=== PATIENT | female | born 1950 | race Caucasian/White ===

== ENCOUNTER 2023-04-01 10:28 | Inpatient (IN) | payer MEDICARE ==
[2023-04-01] MEDS ORDERED: Zofran 4 MG/2 ML VIAL IV ONE ×2 (10:35→12:11)
[2023-04-01] MEDS ORDERED: solu-MEDROL 125 MG, Sterile H2O 10 ml 2 ML IV ONE ×2 (10:35)
[2023-04-01] MEDS ORDERED: TYLENOL 325 MG PO ONE (10:35)
[2023-04-01] MEDS ORDERED: PROVENTIL 2.5 MG/3 ML NEB IH ONE ×2 (10:35→10:47)
[2023-04-01] MEDS ORDERED: Sodium Chloride 0.9% 1000 ML 1,000 ML IV STA (10:35)
[2023-04-01] MEDS ORDERED: PIPERACILLIN/TAZOBACTAM 4.5 GM in Sodium Chloride 100ML MINI-BAG PLUS 100 ML IV ONE (10:37)
--- NOTE | 2023-04-01 11:10 | ERPHSYRPT ---
- History of Present Illness Time Seen by Provider: 04/01/23 10:29 Source: patient Exam Limitations: no limitations Patient Subjective Stated Complaint: pt here for increase sob for 3 days now, with fever, Triage Nursing Assessment: pt arrived per ambulance, alert, resp easy labored, coughting up brown thick sputum. lungs diminished, has redness to left loer leg she states is chronic for her Physician History: Patient is here with shortness of breath. 2 to 3 days. Coughing up sputum. History of COPD. Patient initially at 87%. Placed on 2 L of oxygen. Patient feels that she has a fever. Concern for pneumonia. Documented fever here of 101.0. We will give antipyretics. Allergies/Adverse Reactions: azithromycin [From Zithromax] Allergy (Verified 04/01/23 11:58) cefaclor Allergy (Verified 04/01/23 11:58) ciprofloxacin [From Cipro] Allergy (Verified 04/01/23 11:58) gabapentin [From Neurontin] Allergy (Verified 04/01/23 11:58) glipizide Allergy (Verified 04/01/23 11:58) guaifenesin [From Robitussin] Allergy (Verified 04/01/23 11:58) hydrocodone Allergy (Verified 04/01/23 11:58) lisinopril Allergy (Verified 04/01/23 11:58) lovastatin Allergy (Verified 04/01/23 11:58) metoprolol Allergy (Verified 04/01/23 11:58) naproxen [From Aleve] Allergy (Verified 04/01/23 11:58) nifedipine [From Procardia] Allergy (Verified 04/01/23 11:58) paroxetine Allergy (Verified 04/01/23 11:58) Penicillins Allergy (Verified 04/01/23 11:58) procaine [From Novocain] Allergy (Verified 04/01/23 11:58) sulfacetamide Allergy (Verified 04/01/23 11:58) tetracycline Allergy (Verified 04/01/23 11:58) theophylline Allergy (Verified 04/01/23 11:58) ticagrelor [From Brilinta] Allergy (Verified 04/01/23 11:58) albuterol Adverse Reaction (Verified 04/01/23 11:58) Hx Tetanus, Diphtheria Vaccination/Date Given: No Hx Influenza Vaccination/Date Given: No Hx Pneumococcal Vaccination/Date Given: No Immunizations Up to Date: Yes Travel Risk - International Travel Have you traveled outside of the country in past 3 weeks: No - Coronavirus Screening Are you exhibiting any of the following symptoms?: Yes Symptoms: Fever Close contact with a COVID-19 positive Pt in past 14-21 Days: No - Vaccine Status Have you recieved a Covid-19 vaccination: Yes [employer]: Unknown - Vaccination Dates Date of 2cond Vaccination (if applicable): 2020 Dates if Unknown: 2021 - Review of Systems Constitutional: Fever, No Chills Eyes: No Symptoms Ears, Nose, & Throat: No Symptoms Respiratory: Cough, Dyspnea Cardiac: No Chest Pain, No Edema, No Syncope Abdominal/Gastrointestinal: No Abdominal Pain, No Nausea, No Vomiting, No D iarrhea Genitourinary Symptoms: No Dysuria Musculoskeletal: No Back Pain, No Neck Pain Skin: No Rash Neurological: No Dizziness, No Focal Weakness, No Sensory Changes Psychological: No Symptoms Endocrine: No Symptoms All Other Systems: Reviewed and Negative - Past Medical History Pertinent Past Medical History: Yes Cardiac History: Coronary Artery Disease, High Cholesterol, Hypertension, Myocardial Infarction (DC) Respiratory History: COPD Endocrine Medical History: Diabetes Type II GI Medical History: GERD History: Renal Disease - Past Surgical History Past Surgical History: Yes Cardiac: Cardiac Catheterization, Cardiac Stent Other Surgical History: cervic ca - Social History Smoking Status: Former smoker Exposure to second hand smoke: No Drug Use: none Patient Lives Alone: No - Nursing Vital Signs Nursing Vital Signs: Initial Vital Signs Pulse Rate 102 H 04/01/23 10:31 Respiratory Rate 18 04/01/23 10:31 Blood Pressure 184/83 04/01/23 10:31 O2 Sat by Pulse Oximetry 88 L 04/01/23 10:31 Pain Scale Pain Intensity 0 - Physical Exam General Appearance: no apparent distress, alert Eye Exam: PERRL/EOMI, eyes nml inspection Ears, Nose, Throat Exam: normal ENT inspection, pharynx normal, moist mucous membranes Neck Exam: normal inspection, non-tender, supple, full range of motion Respiratory Exam: diminished breath sounds, crackles/rales, wheezing, No respiratory distress Cardiovascular Exam: regular rate/rhythm, normal heart sounds, normal peripheral pulses Gastrointestinal/Abdomen Exam: soft, normal bowel sounds, No tenderness, No mass Back Exam: normal inspection, normal range of motion, No CVA tenderness, No vertebral tenderness Extremity Exam: normal inspection, normal range of motion, pelvis stable Neurologic Exam: alert, oriented x 3, cooperative, normal mood/affect, nml cerebellar function, nml station & gait, sensation nml, No motor deficits Skin Exam: normal color, warm, dry, No rash Lymphatic Exam: No adenopathy SpO2: 95 - Course Nursing assessment & vital signs reviewed: Yes EKG Interpreted by Me: Sinus Rhythm (Sinus rhythm, no obvious signs of ischemia) Ordered Tests: Active Orders 24 hr Category Date Time Status Admit as Inpatient ROUTINE Care 04/01/23 12:19 Active Code Status Order ROUTINE Care 04/01/23 12:19 Active Code Status Order ROUTINE Care 04/01/23 12:21 Active EKG-ER Only STAT Care 04/01/23 10:35 Active IV Care Q6H Care 04/01/23 12:19 Active IV Care Q6H Care 04/01/23 12:21 Active IV Insertion STAT Care 04/01/23 10:35 Active Reid Hose, Apply ROUTINE Care 04/01/23 12:19 Active Weight,Daily 0600 Care 04/01/23 12:19 Active CHEST 1 VIEW (PORTABLE) DAILY Exams 04/02/23 07:00 Ordered CHEST 1 VIEW (PORTABLE) DAILY Exams 04/03/23 07:00 Ordered CHEST 1 VIEW (PORTABLE) DAILY Exams 04/04/23 07:00 Ordered CHEST 1 VIEW (PORTABLE) DAILY Exams 04/05/23 07:00 Ordered CHEST 1 VIEW (PORTABLE) Stat Exams 04/01/23 10:36 Completed BLOOD CULTURE Stat Lab 04/01/23 11:17 Received CBC AM.LAB Lab 04/02/23 04:00 Ordered CBC W DIFF Stat Lab 04/01/23 10:35 Completed CMP AM.LAB Lab 04/02/23 04:00 Ordered CULTURE,SPUTUM Stat Lab 04/01/23 11:25 Received CULTURE,URINE Stat Lab 04/01/23 11:25 Received Lactic Acid Stat Lab 04/01/23 11:00 Completed PROCALCITONIN Stat Lab 04/01/23 11:17 Received TROPONIN Q4H Lab 04/01/23 14:45 Ordered TROPONIN Q4H Lab 04/01/23 18:45 Ordered TROPONIN Q4H Lab 04/01/23 22:45 Ordered UA W/RFX UR CULTURE Stat Lab 04/01/23 11:25 Completed Respiratory Therapy Assessment DAILY RT 04/01/23 11:10 Active Transfer Order Routine Transfer 04/01/23 Ordered Medication Summary Generic Name Dose Route Start Last Admin Trade Name Palomo PRN Reason Stop Dose Admin Acetaminophen 650 mg 04/01/23 12:21 Acetaminophen 325 Mg Tablet PO 05/01/23 12:20 Q4H PRN PRN PAIN AND/OR FEVER Levofloxacin/Dextrose 750 mg in 150 mls @ 100 mls/hr 04/01/23 12:27 Levofloxacin 750mg/150ml D5w IV 04/01/23 13:56 STAT STA Ondansetron HCl 4 mg 04/01/23 12:21 Ondansetron Hcl 4 Mg/2 Ml Vial IV 05/01/23 12:20 Q6H PRN PRN NAUSEA/VOMITING Discontinued Medications Generic Name Dose Route Start Last Admin Trade Name Palomo PRN Reason Stop Dose Admin Acetaminophen 975 mg 04/01/23 10:35 04/01/23 11:58 Acetaminophen 325 Mg Tablet PO 04/01/23 10:36 975 mg STAT ONE Administration Acetaminophen Confirm 04/01/23 11:55 Acetaminophen 325 Mg Tablet Administered 04/01/23 11:56 Dose 975 mg .ROUTE .STK-MED ONE Albuterol Sulfate 2.5 mg 04/01/23 10:35 04/01/23 10:50 Albuterol Sulfate 2.5 Mg/3 Ml Neb IH 04/01/23 10:36 2.5 mg STAT ONE Administration Albuterol Sulfate Confirm 04/01/23 10:47 Albuterol Sulfate 2.5 Mg/3 Ml Neb Administered 04/01/23 10:48 Dose 2.5 mg IH .STK-MED ONE Methylprednisolone Sodium 0 mg 04/01/23 10:35 04/01/23 11:58 Succinate 125 mg/ Sterile IV 04/01/23 10:36 125 mg Water 2 ml STAT ONE Administration Sodium Chloride 1,000 mls @ 999 mls/hr 04/01/23 10:35 04/01/23 12:08 Sodium Chloride 0.9% 1000 Ml IV 04/01/23 11:35 999 mls/hr .Q1H1M STA Administration Piperacillin Sod/Tazobactam 100 mls @ 200 mls/hr 04/01/23 10:37 Sod 4.5 gm/ Sodium Chloride IV 04/01/23 11:06 ONCE ONE Ceftriaxone Sodium/Dextrose 1 g in 50 mls @ 100 mls/hr 04/01/23 11:22 04/01/23 12:12 Rocephin 1 Gm-D5w 50 Ml Bag IV 04/01/23 11:51 100 mls/hr STAT ONE 100 mls/hr Administration Azithromycin 500 mg in 250 mls @ 250 mls/hr 04/01/23 11:22 Zithromax 500 Mg/ 250 Ml Nacl Premix IV 04/01/23 12:21 STAT ONE Sodium Chloride Confirm 04/01/23 11:56 Sodium Chloride 0.9% 1000 Ml Administered 04/01/23 11:57 Dose 1,000 mls @ ud .ROUTE .STK-MED ONE Azithromycin Confirm 04/01/23 12:04 Zithromax 500 Mg/ 250 Ml Nacl Premix Administered 04/01/23 12:05 Dose 500 mg in 250 mls @ ud IV .STK-MED ONE Ceftriaxone Sodium/Dextrose Confirm 04/01/23 12:04 Rocephin 1 Gm-D5w 50 Ml Bag Administered 04/01/23 12:05 Dose 1 g in 50 mls @ ud IV .STK-MED ONE Methylprednisolone Sodium Succinate Confirm 04/01/23 11:55 Methylprednis Sod Succ 125 Mg/2 Ml Vial Administered 04/01/23 11:56 Dose 125 mg .ROUTE .STK-MED ONE Ondansetron HCl 4 mg 04/01/23 10:35 04/01/23 11:58 Ondansetron Hcl 4 Mg/2 Ml Vial IV 04/01/23 10:36 4 mg STAT ONE Administration Ondansetron HCl Confirm 04/01/23 11:55 Ondansetron Hcl 4 Mg/2 Ml Vial Administered 04/01/23 11:56 Dose 4 mg .ROUTE .STK-MED ONE Ondansetron HCl 8 mg 04/01/23 12:11 Ondansetron Hcl 4 Mg/2 Ml Vial IV 04/01/23 12:12 STAT ONE Sterile Water Confirm 04/01/23 11:55 Water For Injection,Sterile 10 Ml Vial Administered 04/01/23 11:56 Dose 10 ml IJ .STK-MED ONE Lab/Rad Data: Laboratory Result Diagrams 04/01/23 10:35 04/01/23 11:17 Laboratory Results 04/01/23 04/01/23 04/01/23 Range/Units 11:25 11:17 11:17 WBC (4.0-10.5) x10^3/uL RBC (4.1-5.4) x10^6/uL Hgb (12.0-16.0) g/dL Hct (35-47) % MCV (78-100) fL MCH (26-32) pg MCHC (32-36) g/dL RDW (11.5-14.0) % Plt Count (150-450) x10^3/uL MPV (7.5-11.0) fL Gran % (36.0-66.0) % Immature Gran % (Auto) (0.00-0.4) % Nucleat RBC Rel Count (0.00-0.1) % Eos # (Auto) (0-0.5) x10^3/uL Immature Gran # (Auto) (0.00-0.03) x10^3u/L Absolute Lymphs (auto) (1.0-4.6) x10^3/uL Absolute Monos (auto) (0.0-1.3) x10^3/uL Absolute Nucleated RBC (0.00-0.01) x10^3u/L Lymphocytes % (24.0-44.0) % Monocytes % (0.0-12.0) % Eosinophils % (0.00-5.0) % Basophils % (0.0-0.4) % Absolute Granulocytes (1.4-6.9) x10^3/uL Basophils # (0-0.4) x10^3/uL Sodium Direct 135 L (138-146) mmol/L Potassium 4.3 (3.5-4.9) mmol/L Chloride 95 L (98-109) mmol/L Carbon Dioxide 27 (24-29) mmol/L Venous BUN 47 H (8-26) mg/dL Creatinine 1.9 H (0.6-1.3) mg/dL Glucose 231 H (70-105) mg/dL Lactic Acid (0.4-2.0) Ionized Calcium 1.10 L (1.12-1.32) mmol/L Troponin 0.04 H (0.00-0.03) ng/mL Urine Color Yellow (Yellow) Urine Appearance Clear (Clear) Urine pH 5.0 (4.6-8.0) Ur Specific Waldo 1.015 (1.005-1.030) Urine Protein Negative (Negative) Urine Glucose (UA) >=1000 A (Negative) mg/dL Urine Ketones Negative (Negative) Urine Blood Negative (Negative) Urine Nitrite Negative (Negative) Urine Bilirubin Negative (Negative) Urine Urobilinogen 0.2 (0.2) mg/dL Ur Leukocyte Esterase Small A (Negative) U Hyaline Cast (Auto) 3-5 A (0-2) /LPF Urine Microscopic RBC 0-2 (0-5) /HPF Urine Microscopic WBC 21-50 A (0-5) /HPF Ur Epithelial Cells None Seen (None Seen) /HPF Urine Bacteria Many A (None Seen) /HPF Urine Culture Reflexed YES (NO) Influenza Type A Ag NEGATIVE (NEGATIVE) Influenza Type B Ag NEGATIVE (NEGATIVE) RSV (PCR) NEGATIVE (NEGATIVE) SARS-CoV-2 (PCR) NEGATIVE (NEGATIVE) Group A Strep Antibody (NEGATIVE) 04/01/23 04/01/23 04/01/23 Range/Units 11:15 11:00 10:35 WBC 19.7 H (4.0-10.5) x10^3/uL RBC 4.22 (4.1-5.4) x10^6/uL Hgb 11.6 L (12.0-16.0) g/dL Hct 37.0 (35-47) % MCV 87.7 (78-100) fL MCH 27.5 (26-32) pg MCHC 31.4 L (32-36) g/dL RDW 15.8 H (11.5-14.0) % Plt Count 423 (150-450) x10^3/uL MPV 10.9 (7.5-11.0) fL Gran % 84.2 H (36.0-66.0) % Immature Gran % (Auto) 0.5 H (0.00-0.4) % Nucleat RBC Rel Count 0.0 (0.00-0.1) % Eos # (Auto) 0.08 (0-0.5) x10^3/uL Immature Gran # (Auto) 0.10 H (0.00-0.03) x10^3u/L Absolute Lymphs (auto) 1.35 (1.0-4.6) x10^3/uL Absolute Monos (auto) 1.49 H (0.0-1.3) x10^3/uL Absolute Nucleated RBC 0.00 (0.00-0.01) x10^3u/L Lymphocytes % 6.8 L (24.0-44.0) % Monocytes % 7.6 (0.0-12.0) % Eosinophils % 0.4 (0.00-5.0) % Basophils % 0.5 (0.0-0.4) % Absolute Granulocytes 16.61 H (1.4-6.9) x10^3/uL Basophils # 0.10 (0-0.4) x10^3/uL Sodium Direct (138-146) mmol/L Potassium (3.5-4.9) mmol/L Chloride (98-109) mmol/L Carbon Dioxide (24-29) mmol/L Venous BUN (8-26) mg/dL Creatinine (0.6-1.3) mg/dL Glucose (70-105) mg/dL Lactic Acid 1.6 (0.4-2.0) Ionized Calcium (1.12-1.32) mmol/L Troponin (0.00-0.03) ng/mL Urine Color (Yellow) Urine Appearance (Clear) Urine pH (4.6-8.0) Ur Specific Waldo (1.005-1.030) Urine Protein (Negative) Urine Glucose (UA) (Negative) mg/dL Urine Ketones (Negative) Urine Blood (Negative) Urine Nitrite (Negative) Urine Bilirubin (Negative) Urine Urobilinogen (0.2) mg/dL Ur Leukocyte Esterase (Negative) U Hyaline Cast (Auto) (0-2) /LPF Urine Microscopic RBC (0-5) /HPF Urine Microscopic WBC (0-5) /HPF Ur Epithelial Cells (None Seen) /HPF Urine Bacteria (None Seen) /HPF Urine Culture Reflexed (NO) Influenza Type A Ag (NEGATIVE) Influenza Type B Ag (NEGATIVE) RSV (PCR) (NEGATIVE) SARS-CoV-2 (PCR) (NEGATIVE) Group A Strep Antibody NOT DETECTED (NEGATIVE) - Progress Progress: improved Progress Note: 04/01/23 11:09 differential diagnosis includes: PNA, STEMI, NSTEMI, other infection, musculoskeletal pain, pneumothorax - We'll obtain basic labs, fluids, EKG, troponin, chest x-ray - First troponin negative - EKG shows no ST changes - my read. See full read below. - O2 saturations consistently greater than 95%, on 2 L of oxygen 04/01/23 12:31 Chest x-ray shows left lower lobe pneumonia. Patient looks somewhat improved on steroids, albuterol treatments. Patient has an extremely long allergy list. I did discuss antibiotic choices with her. When I discussed using Levaquin versus Cipro versus Rocephin. Her "allergic reactions" appear to be more intolerances of medication versus true allergic reactions. She does not get hives, throat s welling, redness, shortness of breath with any of these medications. Rather she describes intolerance, vomiting, upset stomach. After discussion with inpatient team, Dr. Kim. We made decision to try Levaquin today for the patient. This will cover her pneumonia. Plan to admit. Discussed with : Julio Counseled pt/family regarding: lab results, diagnosis, rad results Medical Desision Making - Independent Historian Additional History obtained from: Child - Discussion of managment Care discussed with:: hospitalist Reviewed:: Test results, Need for additional workup Agreed on:: Treatment plan, decision to admit - Diagnostic Testing Diagnostic test were ordered, analyzed, and reviewed by me: Yes Radiological Interpretation: Interpreted by me - Departure Departure Disposition: In-patient Admission Clinical Impression: Pneumonia, Acute respiratory failure with hypoxia Condition: Stable Critical Care Time: No
[2023-04-01] MEDS ORDERED: ROCEPHIN 1 Gm-D5w 50 ml Bag** 1 G/50 ML IVPB IV ONE ×2 (11:22→12:04)
[2023-04-01] MEDS ORDERED: Zithromax 500 MG/ 250 ML NaCl Premix 500 MG/250 ML IVPB IV ONE (11:22)
[2023-04-01 11:25] LABS: Absolute Neutrophil Ct (ANC) 16.61 x10^3/uL (1.4-6.9); BASOPHIL % 0.5 % (0.0-0.4); Eosinophil % 0.4 % (0.00-5.0); Eosinophil (Absolute #) 0.08 x10^3/uL (0-0.5); Hemoglobin 11.6 g/dL (12.0-16.0); IMMATURE GRAN % 0.5 % (0.00-0.4); Lymphocyte (Absolute #) 1.35 x10^3/uL (1.0-4.6); Lymphocytes % 6.8 % (24.0-44.0); Mean Cell Volume 87.7 fL (78-100); Mean Corpuscular Hemoglobin 27.5 pg (26-32); Mean Corpuscular Hgb Concent. 31.4 g/dL (32-36); Mean Platelet Volume 10.9 fL (7.5-11.0); Monocyte (Absolute #) 1.49 x10^3/uL (0.0-1.3); Monocytes % 7.6 % (0.0-12.0); Neutrophil % 84.2 % (36.0-66.0); Platelet Count 423 x10^3/uL (150-450); Red Blood Count 4.22 x10^6/uL (4.1-5.4); Red Cell Distribution Width 15.8 % (11.5-14.0); White Blood Count 19.7 x10^3/uL (4.0-10.5)
[2023-04-01 11:48] LABS: ISTAT cTNI 0.04 ng/mL (0.00-0.03)
[2023-04-01 11:50] LABS: ISTAT K 4.3 mmol/L (3.5-4.9); ISTAT iCA 1.1 mmol/L (1.12-1.32)
[2023-04-01 11:51] LABS: ISTAT CREA 1.9 mg/dL (0.6-1.3)
[2023-04-01] MEDS ORDERED: Sterile H2O 10 ml IJ ONE (11:55)
[2023-04-01] MEDS ORDERED: solu-MEDROL ONE (11:55)
[2023-04-01] MEDS ORDERED: TYLENOL 325 MG ONE (11:55)
[2023-04-01] MEDS ORDERED: Zofran 4 MG/2 ML VIAL ONE (11:55)
[2023-04-01] MEDS ORDERED: Sodium Chloride 0.9% 1000 ML 1,000 ML ONE (11:56)
[2023-04-01 12:02] LABS: INFLUENZA A NEGATIVE (NEGATIVE); INFLUENZA B NEGATIVE (NEGATIVE); RESPIRATORY SYNCTIAL VIRUS NEGATIVE (NEGATIVE); SARS-CoV-2 Xpert Express NEGATIVE (NEGATIVE)
[2023-04-01] MEDS ORDERED: Zithromax 500 MG/ 250 ML NaCl Premix 0 MG/0 ML IVPB IV ONE (12:04)
--- NOTE | 2023-04-01 12:09 | XRAY ---
CLINICAL HISTORY:PNA COMPARISON:None. TECHNIQUES:X-ray of the chest showing 1 view: AP view. FINDINGS: Areas of non-homogenous opacifications are seen in the left mid and bilateral lower zones. Both brisa appear prominent. Normal configuration of the mediastinum. The cardiac size is normal. The costophrenic and cardiophrenic angles are clear. Degenerative changes are seen in the spine. IMPRESSION: Areas of non-homogenous opacifications in the left mid and bilateral lower zones, likely represents pulmonary infection. Suggested clinical and lab correlation and follow-up x-ray. Electronically Signed by: Pamela Diaz MD. (04/01/2023 10:59:26 PHYSICIAN [facility] [employer])
[2023-04-01] MEDS ORDERED: Zofran 4 MG/2 ML VIAL IV PRN (12:21)
[2023-04-01] MEDS ORDERED: TYLENOL 325 MG PO PRN (12:21)
[2023-04-01 12:22] LABS: Appearance Clear (Clear); Bacteria Many /HPF (None Seen); Bilirubin Negative (Negative); Blood Negative (Negative); Epithelial Cells None Seen /HPF (None Seen); Glucose, Urine >=1000 mg/dL (Negative); Ketones Negative (Negative); Leukocyte Esterase Small (Negative); Nitrite Negative (Negative); Protein,Urine Dip Negative (Negative); RBC 0-2 /HPF (0-5); Specific Gravity 1.015 (1.005-1.030); Urobilinogen 0.2 mg/dL (0.2); WBC 21-50 /HPF (0-5)
[2023-04-01 12:23] LABS: ADD URINE CULTURE? YES (NO)
[2023-04-01] MEDS ORDERED: LEVOFLOXACIN 750MG/150ML D5W 750 MG/150 ML BAG IV STA (12:27)
--- NOTE | 2023-04-01 16:58 | PCM.HP ---
History of Present Illness - Chief Complaint Chief Complaint: PNEUMONIA, COPD History of Present Illness: is a 73 year old female who presented to the hospital with cough and shortness of breath, she has had fever and purulent sputum production for several days prior to arrival. She is new to the area, seeing [employer] at [facility]. - Review of Systems Constitutional: Fever, Chills Respiratory: Cough Cardiac: No Chest Pain, No Edema, No Syncope Abdominal/Gastrointestinal: No Abdominal Pain, No Nausea, No Vomiting, No Diarrhea Skin: No Rash Medications & Allergies Home Medications: Home Medication List Albuterol Sulfate [Proair Respiclick] 1 inh INTRANASAL DAILY 04/01/23 [History Confirmed 04/01/23] Allopurinol 300 mg [Zyloprim 300 mg] 300 mg PO HS 04/01/23 [History Confirmed 04/01/23] Amiodarone HCl 200 mg [Cordarone 200 MG] 200 mg PO DAILY 04/01/23 [History Confirmed 04/01/23] Amlodipine Besylate [Norvasc] 10 mg PO DAILY 04/01/23 [History Confirmed 04/01/23] Apixaban [Eliquis] 5 mg PO BID 04/01/23 [History Confirmed 04/01/23] Aspirin EC 81 mg [Ecotrin 81 mg] 81 mg PO HS 04/01/23 [History Confirmed 04/01/23] Cyclosporine [Restasis Multidose] 1 drop OP BID 04/01/23 [History Confirmed 04/01/23] Empagliflozin [Jardiance] 10 mg PO DAILY 04/01/23 [History Confirmed 04/01/23] Fenofibric Acid 35 mg PO HS 04/01/23 [History Confirmed 04/01/23] Fluticasone Propionate [Flonase Allergy Relief] 50 mcg INTRANASAL BID 04/01/23 [History Confirmed 04/01/23] Insulin Detemir [Levemir Flexpen] 45 units SQ BID 04/01/23 [History Confirmed 04/01/23] Insulin Lispro [Humalog] 20 unit TID 04/01/23 [History Confirmed 04/01/23] Isosorbide Dinitrate 30 mg PO BREAKFAST 04/01/23 [History Confirmed 04/01/23] Montelukast Sodium 10 mg [Singulair 10 MG] 10 mg PO DAILY 04/01/23 [History Confirmed 04/01/23] Nitroglycerin [Nitromist] 1 spray INTRANASAL DAILY PRN PRN 04/01/23 [History Confirmed 04/01/23] Potassium Chloride 10 meq PO DAILY 04/01/23 [History Confirmed 04/01/23] Pregabalin 25 mg [Lyrica 25 MG] 25 mg PO BID 04/01/23 [History Confirmed 04/01/23] Semaglutide [Ozempic] 0.5 mg SQ WEEKLY 04/01/23 [History Confirmed 04/01/23] Spironolactone 25 mg [Aldactone 25 MG] 25 mg PO DAILY 04/01/23 [History Confirmed 04/01/23] Tizanidine HCl 4 mg [Zanaflex 4 MG] 4 mg PO HS 04/01/23 [History Confirmed 04/01/23] Torsemide 20 mg [Demadex 20 mg] 60 mg PO DAILY 04/01/23 [History Confirmed 04/01/23] Tramadol HCl 50 mg [Ultram 50 mg] 50 mg PO Q4-6HPRN PRN 04/01/23 [History Confirmed 04/01/23] Umeclidinium Brm/Vilanterol Tr [Anoro Ellipta 62.5-25 Mcg INH] 1 puff IH DAILY 04/01/23 [History Confirmed 04/01/23] Allergies/Adverse Reactions: Allergies Allergy/AdvReac Type Severity Reaction Status Date / Time azithromycin [From Zithromax] Allergy Verified 04/01/23 11:58 cefaclor Allergy Verified 04/01/23 11:58 ciprofloxacin [From Cipro] Allergy Verified 04/01/23 11:58 gabapentin [From Neurontin] Allergy Verified 04/01/23 11:58 glipizide Allergy Verified 04/01/23 11:58 guaifenesin [From Robitussin] Allergy Verified 04/01/23 11:58 hydrocodone Allergy Verified 04/01/23 11:58 lisinopril Allergy Verified 04/01/23 11:58 lovastatin Allergy Verified 04/01/23 11:58 metoprolol Allergy Verified 04/01/23 11:58 naproxen [From Aleve] Allergy Verified 04/01/23 11:58 nifedipine [From Procardia] Allergy Verified 04/01/23 11:58 paroxetine Allergy Verified 04/01/23 11:58 Penicillins Allergy Verified 04/01/23 11:58 procaine [From Novocain] Allergy Verified 04/01/23 11:58 sulfacetamide Allergy Verified 04/01/23 11:58 tetracycline Allergy Verified 04/01/23 11:58 theophylline Allergy Verified 04/01/23 11:58 ticagrelor [From Brilinta] Allergy Verified 04/01/23 11:58 albuterol AdvReac Verified 04/01/23 11:58 - Past Medical History Past Medical History: Yes ENT History: Cataracts Cardiac History: Coronary Artery Disease, High Cholesterol, Hypertension, Myocardial Infarction (DE) Respiratory History: CHF, COPD Endocrine Medical History: Diabetes Type II Musculoskelatal History: Arthritis GI Medical History: GERD History: Renal Disease Pyscho-Social History: No Pertinent History Reproductive Disorders: No Pertinent History, Cervical Cancer Comment: neuropathy - Female History Are you now?: No - Past Surgical History Past Surgical History: Yes Neuro Surgical History: No Pertinent History Cardiac History: Cardiac Catheterization, Cardiac Stent Respiratory Surgery: No Pertinent History GI Surgical History: Cholecystectomy Genitourinary Surgical Hx: No Pertinent History Musculskeletal Surgical Hx: No Pertinent History Female Surgical History: Other Other Surgical History: cervic ca , loop sx on cervix - Social History Smoking Status: Former smoker Exposure to second hand smoke: No Alcohol: None Drug Use: none - Physical Exam Vital Signs: Vital Signs - 24 hr Temp Pulse Resp BP BP Pulse Ox 04/01/23 16:00 99.8 F 85 18 184/83 95 04/01/23 15:00 99.8 F 85 18 184/83 95 04/01/23 14:03 99.8 F 85 18 184/83 95 04/01/23 14:00 98.6 F 78 20 145/65 94 L 04/01/23 13:12 99.8 F 04/01/23 13:00 98.6 F 78 20 109/49 94 L 04/01/23 12:33 95 04/01/23 12:00 85 20 134/58 94 L 04/01/23 11:08 95 H 27 H 142/63 92 L 04/01/23 10:50 88 24 94 L 04/01/23 10:37 87 H 95 04/01/23 10:32 101.0 F 88 34 H 184/83 88 L 04/01/23 10:31 102 H 18 184/83 88 L General Appearance: no apparent distress Neurologic Exam: alert, oriented x 3 Respiratory Exam: rhonchi Cardiovascular Exam: regular rate/rhythm, normal heart sounds, normal peripheral pulses Gastrointestinal/Abdomen Exam: soft, normal bowel sounds, No tenderness, No mass Extremity Exam: normal inspection, normal range of motion, pelvis stable Skin Exam: normal color, warm, dry, No rash Results - Labs Lab/Micro Results: Lab Results-Last 24 Hours 04/01/23 04/01/23 04/01/23 Range/Units 10:35 11:00 11:15 WBC 19.7 H (4.0-10.5) x10^3/uL RBC 4.22 (4.1-5.4) x10^6/uL Hgb 11.6 L (12.0-16.0) g/dL Hct 37.0 (35-47) % MCV 87.7 (78-100) fL MCH 27.5 (26-32) pg MCHC 31.4 L (32-36) g/dL RDW 15.8 H (11.5-14.0) % Plt Count 423 (150-450) x10^3/uL MPV 10.9 (7.5-11.0) fL Gran % 84.2 H (36.0-66.0) % Immature Gran % (Auto) 0.5 H (0.00-0.4) % Nucleat RBC Rel Count 0.0 (0.00-0.1) % Eos # (Auto) 0.08 (0-0.5) x10^3/uL Immature Gran # (Auto) 0.10 H (0.00-0.03) x10^3u/L Absolute Lymphs (auto) 1.35 (1.0-4.6) x10^3/uL Absolute Monos (auto) 1.49 H (0.0-1.3) x10^3/uL Absolute Nucleated RBC 0.00 (0.00-0.01) x10^3u/L Lymphocytes % 6.8 L (24.0-44.0) % Monocytes % 7.6 (0.0-12.0) % Eosinophils % 0.4 (0.00-5.0) % Basophils % 0.5 (0.0-0.4) % Absolute Granulocytes 16.61 H (1.4-6.9) x10^3/uL Basophils # 0.10 (0-0.4) x10^3/uL Sodium Direct (138-146) mmol/L Potassium (3.5-4.9) mmol/L Chloride (98-109) mmol/L Carbon Dioxide (24-29) mmol/L Venous BUN (8-26) mg/dL Creatinine (0.6-1.3) mg/dL Glucose (70-105) mg/dL Lactic Acid 1.6 (0.4-2.0) Ionized Calcium (1.12-1.32) mmol/L Troponin (0.00-0.03) ng/mL Troponin I (0.000-0.034) ng/mL Procalcitonin (0.030-0.080) ng/mL Urine Color (Yellow) Urine Appearance (Clear) Urine pH (4.6-8.0) Ur Specific Battiest (1.005-1.030) Urine Protein (Negative) Urine Glucose (UA) (Negative) mg/dL Urine Ketones (Negative) Urine Blood (Negative) Urine Nitrite (Negative) Urine Bilirubin (Negative) Urine Urobilinogen (0.2) mg/dL Ur Leukocyte Esterase (Negative) U Hyaline Cast (Auto) (0-2) /LPF Urine Microscopic RBC (0-5) /HPF Urine Microscopic WBC (0-5) /HPF Ur Epithelial Cells (None Seen) /HPF Urine Bacteria (None Seen) /HPF Urine Culture Reflexed (NO) Influenza Type A Ag (NEGATIVE) Influenza Type B Ag (NEGATIVE) RSV (PCR) (NEGATIVE) SARS-CoV-2 (PCR) (NEGATIVE) Group A Strep Antibody NOT DETECTED (NEGATIVE) 04/01/23 04/01/23 04/01/23 Range/Units 11:17 11:17 11:17 WBC (4.0-10.5) x10^3/uL RBC (4.1-5.4) x10^6/uL Hgb (12.0-16.0) g/dL Hct (35-47) % MCV (78-100) fL MCH (26-32) pg MCHC (32-36) g/dL RDW (11.5-14.0) % Plt Count (150-450) x10^3/uL MPV (7.5-11.0) fL Gran % (36.0-66.0) % Immature Gran % (Auto) (0.00-0.4) % Nucleat RBC Rel Count (0.00-0.1) % Eos # (Auto) (0-0.5) x10^3/uL Immature Gran # (Auto) (0.00-0.03) x10^3u/L Absolute Lymphs (auto) (1.0-4.6) x10^3/uL Absolute Monos (auto) (0.0-1.3) x10^3/uL Absolute Nucleated RBC (0.00-0.01) x10^3u/L Lymphocytes % (24.0-44.0) % Monocytes % (0.0-12.0) % Eosinophils % (0.00-5.0) % Basophils % (0.0-0.4) % Absolute Granulocytes (1.4-6.9) x10^3/uL Basophils # (0-0.4) x10^3/uL Sodium Direct 135 L (138-146) mmol/L Potassium 4.3 (3.5-4.9) mmol/L Chloride 95 L (98-109) mmol/L Carbon Dioxide 27 (24-29) mmol/L Venous BUN 47 H (8-26) mg/dL Creatinine 1.9 H (0.6-1.3) mg/dL Glucose 231 H (70-105) mg/dL Lactic Acid (0.4-2.0) Ionized Calcium 1.10 L (1.12-1.32) mmol/L Troponin 0.04 H (0.00-0.03) ng/mL Troponin I (0.000-0.034) ng/mL Procalcitonin 0.500 H (0.030-0.080) ng/mL Urine Color (Yellow) Urine Appearance (Clear) Urine pH (4.6-8.0) Ur Specific Battiest (1.005-1.030) Urine Protein (Negative) Urine Glucose (UA) (Negative) mg/dL Urine Ketones (Negative) Urine Blood (Negative) Urine Nitrite (Negative) Urine Bilirubin (Negative) Urine Urobilinogen (0.2) mg/dL Ur Leukocyte Esterase (Negative) U Hyaline Cast (Auto) (0-2) /LPF Urine Microscopic RBC (0-5) /HPF Urine Microscopic WBC (0-5) /HPF Ur Epithelial Cells (None Seen) /HPF Urine Bacteria (None Seen) /HPF Urine Culture Reflexed (NO) Influenza Type A Ag NEGATIVE (NEGATIVE) Influenza Type B Ag NEGATIVE (NEGATIVE) RSV (PCR) NEGATIVE (NEGATIVE) SARS-CoV-2 (PCR) NEGATIVE (NEGATIVE) Group A Strep Antibody (NEGATIVE) 04/01/23 04/01/23 Range/Units 11:25 15:05 WBC (4.0-10.5) x10^3/uL RBC (4.1-5.4) x10^6/uL Hgb (12.0-16.0) g/dL Hct (35-47) % MCV (78-100) fL MCH (26-32) pg MCHC (32-36) g/dL RDW (11.5-14.0) % Plt Count (150-450) x10^3/uL MPV (7.5-11.0) fL Gran % (36.0-66.0) % Immature Gran % (Auto) (0.00-0.4) % Nucleat RBC Rel Count (0.00-0.1) % Eos # (Auto) (0-0.5) x10^3/uL Immature Gran # (Auto) (0.00-0.03) x10^3u/L Absolute Lymphs (auto) (1.0-4.6) x10^3/uL Absolute Monos (auto) (0.0-1.3) x10^3/uL Absolute Nucleated RBC (0.00-0.01) x10^3u/L Lymphocytes % (24.0-44.0) % Monocytes % (0.0-12.0) % Eosinophils % (0.00-5.0) % Basophils % (0.0-0.4) % Absolute Granulocytes (1.4-6.9) x10^3/uL Basophils # (0-0.4) x10^3/uL Sodium Direct (138-146) mmol/L Potassium (3.5-4.9) mmol/L Chloride (98-109) mmol/L Carbon Dioxide (24-29) mmol/L Venous BUN (8-26) mg/dL Creatinine (0.6-1.3) mg/dL Glucose (70-105) mg/dL Lactic Acid (0.4-2.0) Ionized Calcium (1.12-1.32) mmol/L Troponin (0.00-0.03) ng/mL Troponin I 0.034 (0.000-0.034) ng/mL Procalcitonin (0.030-0.080) ng/mL Urine Color Yellow (Yellow) Urine Appearance Clear (Clear) Urine pH 5.0 (4.6-8.0) Ur Specific Battiest 1.015 (1.005-1.030) Urine Protein Negative (Negative) Urine Glucose (UA) >=1000 A (Negative) mg/dL Urine Ketones Negative (Negative) Urine Blood Negative (Negative) Urine Nitrite Negative (Negative) Urine Bilirubin Negative (Negative) Urine Urobilinogen 0.2 (0.2) mg/dL Ur Leukocyte Esterase Small A (Negative) U Hyaline Cast (Auto) 3-5 A (0-2) /LPF Urine Microscopic RBC 0-2 (0-5) /HPF Urine Microscopic WBC 21-50 A (0-5) /HPF Ur Epithelial Cells None Seen (None Seen) /HPF Urine Bacteria Many A (None Seen) /HPF Urine Culture Reflexed YES (NO) Influenza Type A Ag (NEGATIVE) Influenza Type B Ag (NEGATIVE) RSV (PCR) (NEGATIVE) SARS-CoV-2 (PCR) (NEGATIVE) Group A Strep Antibody (NEGATIVE) - Radiology Impressions Radiology Exams & Impressions: Radiology Procedures Category Date Time Status CHEST 1 VIEW (PORTABLE) DAILY Exams 04/02/23 07:00 Ordered CHEST 1 VIEW (PORTABLE) DAILY Exams 04/03/23 07:00 Ordered CHEST 1 VIEW (PORTABLE) DAILY Exams 04/04/23 07:00 Ordered CHEST 1 VIEW (PORTABLE) DAILY Exams 04/05/23 07:00 Ordered CHEST 1 VIEW (PORTABLE) Stat Exams 04/01/23 10:36 Completed - Other Procedures and Tests Respiratory Therapy 04/01/23 11:10 Respiratory Therapy Assessment DAILY Assessment/Plan (1) Pneumonia Current Visit: Yes Status: Acute Assessment & Plan: rocephin and zithromax (has upset stomach with zithromax, not a true allergy as listed) oxygen and nebs at this time. Code(s): J18.9 - PNEUMONIA, UNSPECIFIED ORGANISM (2) Acute respiratory failure with hypoxia Current Visit: Yes Status: Acute Code(s): J96.01 - ACUTE RESPIRATORY FAILURE WITH HYPOXIA
[2023-04-01] MEDS ORDERED: MEDICATION INTERVENTION MC SCH ×3 (17:00)
[2023-04-01] MEDS: NORVASC 5 MG PO SCH (17:03)
[2023-04-01] MEDS: Aldactone 25 MG PO SCH (17:04)
[2023-04-01] MEDS: Cordarone 200 MG PO SCH (17:04)
[2023-04-01] MEDS: Singulair 10 MG PO SCH (17:04)
[2023-04-01] MEDS: DEMADEX 20 MG PO SCH (17:04)
[2023-04-01] MEDS: Klor Con PO SCH (17:04)
[2023-04-01] MEDS: Lantus Insulin SQ SCH (17:07)
[2023-04-01] MEDS ORDERED: MELATONIN PO PRN (17:25)
[2023-04-01] MEDS: DUONEB 0.5-3 MG/3 ml Neb IH SCH ×2 (20:43→23:35)
[2023-04-01] MEDS ORDERED: NON-FORMULARY ITEM (Insulin Detemir [Levemir Flexpen] 100 UNIT/ML Insuln.Pen) SQ SCH (22:00)
[2023-04-01] MEDS ORDERED: NON-FORMULARY ITEM (Cyclosporine [Restasis Multidose] 5.5 ML Drops) OP SCH (22:00)
[2023-04-01] MEDS ORDERED: NON-FORMULARY ITEM (Fluticasone Propionate [Flonase Allergy Relief] 9.9 ML Spray.Susp) INTRANASAL SCH (22:00)
[2023-04-01] MEDS ORDERED: NON-FORMULARY ITEM (Apixaban [Eliquis] 5 MG Tablet) PO SCH (22:00)
[2023-04-01 22:14] LABS: TROPONIN 0.024 ng/mL (0.000-0.034)
[2023-04-01] MEDS: ZYLOPRIM 300 MG PO SCH (22:26)
[2023-04-01] MEDS: ECOTRIN 81 MG PO SCH (22:26)
[2023-04-01] MEDS: ELIQUIS 2.5 MG TABLET PO SCH (22:26)
[2023-04-01] MEDS: Lyrica 25 MG PO SCH (22:26)
[2023-04-01] MEDS: Zanaflex 4 MG PO SCH (22:26)
[2023-04-01] MEDS: Flonase NASAL NS SCH (22:26)
[2023-04-02] MEDS: HUMALOG SQ PRN ×6 (00:07→22:03)
[2023-04-02] MEDS: DUONEB 0.5-3 MG/3 ml Neb IH SCH ×6 (03:45→23:05)
[2023-04-02 06:19] LABS: Hematocrit 36.8 % (35-47); Hemoglobin 11.5 g/dL (12.0-16.0); Mean Cell Volume 88.7 fL (78-100); Mean Corpuscular Hemoglobin 27.7 pg (26-32); Mean Corpuscular Hgb Concent. 31.3 g/dL (32-36); Mean Platelet Volume 10.7 fL (7.5-11.0); Platelet Count 384 x10^3/uL (150-450); Red Blood Count 4.15 x10^6/uL (4.1-5.4); Red Cell Distribution Width 15.6 % (11.5-14.0); White Blood Count 15.8 x10^3/uL (4.0-10.5)
[2023-04-02 06:44] LABS: ALBUMIN 3.9 g/dL (3.5-5.0); BILIRUBIN,TOTAL 0.5 mg/dL (0.2-1.3); Calcium 8.8 mg/dL (8.4-10.2); Creatinine 1 1.79 mg/dL (0.52-1.04); EST GLOMERULAR FILTRATION RATE 29.6 ML/MIN; Potassium 3.6 mmol/L (3.5-5.1); Total Protein 8.5 g/dL (6.3-8.2)
--- NOTE | 2023-04-02 07:42 | XRAY ---
Indication: Pneumonia. Comparison: One day earlier Portable chest again demonstrates bilateral mid to lower lung patchy airspace disease left greater than right, stable to minimally improved. Heart not enlarged. No new cardiopulmonary abnormalities.
[2023-04-02] MEDS ORDERED: ISOSORBIDE DINITRATE 30 MG PO SCH (08:00)
--- NOTE | 2023-04-02 09:27 | PCM.NOTE ---
Date and Time: 04/02/23924 Subjective Assessment: patient feels better than she did at admission, cough is still productive but difficult to get sputum up. dyspnea improved Objective Exam General Appearance: no apparent distress Neurologic Exam: alert, oriented x 3 Respiratory Exam: crackles/rales Cardiovascular Exam: regular rate/rhythm, normal heart sounds Gastrointestinal/Abdomen Exam: soft, No tenderness, No mass Extremity Exam: normal inspection, normal range of motion OBJECTIVE DATA Vital Signs: Vital Signs - 24 hr Temp Pulse Resp BP BP Pulse Ox 04/02/23 07:59 97.1 F 78 17 142/70 92 L 04/02/23 07:16 93 L 04/02/23 07:00 73 24 96 04/02/23 04:00 96.6 F 86 25 H 119/56 95 04/02/23 03:45 85 25 H 95 04/01/23 23:51 97.3 F 76 20 142/60 94 L 04/01/23 23:35 94 L 04/01/23 20:43 94 H 24 94 L 04/01/23 19:26 97.3 F 90 22 136/62 95 04/01/23 16:00 99.8 F 85 18 184/83 95 04/01/23 15:00 99.8 F 85 18 184/83 95 04/01/23 14:03 99.8 F 85 18 184/83 95 04/01/23 14:00 98.6 F 78 20 145/65 94 L 04/01/23 13:12 99.8 F 04/01/23 13:00 98.6 F 78 20 109/49 94 L 04/01/23 12:33 95 04/01/23 12:00 85 20 134/58 94 L 04/01/23 11:08 95 H 27 H 142/63 92 L 04/01/23 10:50 88 24 94 L 04/01/23 10:37 87 H 95 04/01/23 10:32 101.0 F 88 34 H 184/83 88 L 04/01/23 10:31 102 H 18 184/83 88 L Pain Assessment - Last Documented Pain Intensity 5 Pain Scale Used 0-10 Pain Scale Intake and Output: Intake & Output 03/30/23 03/31/23 04/01/23 04/02/23 11:59 11:59 11:59 11:59 Intake Total 2000 Output Total 800 Balance 1200 Weight 98.2 kg 98.2 kg Lab Results: Lab Results-Last 24 Hours 04/01/23 04/01/23 04/01/23 Range/Units 10:35 11:00 11:15 WBC 19.7 H (4.0-10.5) x10^3/uL RBC 4.22 (4.1-5.4) x10^6/uL Hgb 11.6 L (12.0-16.0) g/dL Hct 37.0 (35-47) % MCV 87.7 (78-100) fL MCH 27.5 (26-32) pg MCHC 31.4 L (32-36) g/dL RDW 15.8 H (11.5-14.0) % Plt Count 423 (150-450) x10^3/uL MPV 10.9 (7.5-11.0) fL Gran % 84.2 H (36.0-66.0) % Immature Gran % (Auto) 0.5 H (0.00-0.4) % Nucleat RBC Rel Count 0.0 (0.00-0.1) % Eos # (Auto) 0.08 (0-0.5) x10^3/uL Immature Gran # (Auto) 0.10 H (0.00-0.03) x10^3u/L Absolute Lymphs (auto) 1.35 (1.0-4.6) x10^3/uL Absolute Monos (auto) 1.49 H (0.0-1.3) x10^3/uL Absolute Nucleated RBC 0.00 (0.00-0.01) x10^3u/L Lymphocytes % 6.8 L (24.0-44.0) % Monocytes % 7.6 (0.0-12.0) % Eosinophils % 0.4 (0.00-5.0) % Basophils % 0.5 (0.0-0.4) % Absolute Granulocytes 16.61 H (1.4-6.9) x10^3/uL Basophils # 0.10 (0-0.4) x10^3/uL Sodium (137-145) mmol/L Sodium Direct (138-146) mmol/L Potassium (3.5-4.9) mmol/L Chloride (98-109) mmol/L Carbon Dioxide (24-29) mmol/L Anion Gap (5-15) MEQ/L BUN (7-17) mg/dL Venous BUN (8-26) mg/dL Creatinine (0.6-1.3) mg/dL Estimated GFR ML/MIN Glucose (70-105) mg/dL POC Glucometer (50 to 500) mg/dL Lactic Acid 1.6 (0.4-2.0) Calcium (8.4-10.2) mg/dL Ionized Calcium (1.12-1.32) mmol/L Total Bilirubin (0.2-1.3) mg/dL AST (14-36) U/L ALT (0-35) U/L Alkaline Phosphatase (38-126) U/L Troponin (0.00-0.03) ng/mL Troponin I (0.000-0.034) ng/mL Serum Total Protein (6.3-8.2) g/dL Albumin (3.5-5.0) g/dL Procalcitonin (0.030-0.080) ng/mL Urine Color (Yellow) Urine Appearance (Clear) Urine pH (4.6-8.0) Ur Specific [place] (1.005-1.030) Urine Protein (Negative) Urine Glucose (UA) (Negative) mg/dL Urine Ketones (Negative) Urine Blood (Negative) Urine Nitrite (Negative) Urine Bilirubin (Negative) Urine Urobilinogen (0.2) mg/dL Ur Leukocyte Esterase (Negative) U Hyaline Cast (Auto) (0-2) /LPF Urine Microscopic RBC (0-5) /HPF Urine Microscopic WBC (0-5) /HPF Ur Epithelial Cells (None Seen) /HPF Urine Bacteria (None Seen) /HPF Urine Culture Reflexed (NO) Influenza Type A Ag (NEGATIVE) Influenza Type B Ag (NEGATIVE) RSV (PCR) (NEGATIVE) SARS-CoV-2 (PCR) (NEGATIVE) Group A Strep Antibody NOT DETECTED (NEGATIVE) 04/01/23 04/01/23 04/01/23 Range/Units 11:17 11:17 11:17 WBC (4.0-10.5) x10^3/uL RBC (4.1-5.4) x10^6/uL Hgb (12.0-16.0) g/dL Hct (35-47) % MCV (78-100) fL MCH (26-32) pg MCHC (32-36) g/dL RDW (11.5-14.0) % Plt Count (150-450) x10^3/uL MPV (7.5-11.0) fL Gran % (36.0-66.0) % Immature Gran % (Auto) (0.00-0.4) % Nucleat RBC Rel Count (0.00-0.1) % Eos # (Auto) (0-0.5) x10^3/uL Immature Gran # (Auto) (0.00-0.03) x10^3u/L Absolute Lymphs (auto) (1.0-4.6) x10^3/uL Absolute Monos (auto) (0.0-1.3) x10^3/uL Absolute Nucleated RBC (0.00-0.01) x10^3u/L Lymphocytes % (24.0-44.0) % Monocytes % (0.0-12.0) % Eosinophils % (0.00-5.0) % Basophils % (0.0-0.4) % Absolute Granulocytes (1.4-6.9) x10^3/uL Basophils # (0-0.4) x10^3/uL Sodium (137-145) mmol/L Sodium Direct 135 L (138-146) mmol/L Potassium 4.3 (3.5-4.9) mmol/L Chloride 95 L (98-109) mmol/L Carbon Dioxide 27 (24-29) mmol/L Anion Gap (5-15) MEQ/L BUN (7-17) mg/dL Venous BUN 47 H (8-26) mg/dL Creatinine 1.9 H (0.6-1.3) mg/dL Estimated GFR ML/MIN Glucose 231 H (70-105) mg/dL POC Glucometer (50 to 500) mg/dL Lactic Acid (0.4-2.0) Calcium (8.4-10.2) mg/dL Ionized Calcium 1.10 L (1.12-1.32) mmol/L Total Bilirubin (0.2-1.3) mg/dL AST (14-36) U/L ALT (0-35) U/L Alkaline Phosphatase (38-126) U/L Troponin 0.04 H (0.00-0.03) ng/mL Troponin I (0.000-0.034) ng/mL Serum Total Protein (6.3-8.2) g/dL Albumin (3.5-5.0) g/dL Procalcitonin 0.500 H (0.030-0.080) ng/mL Urine Color (Yellow) Urine Appearance (Clear) Urine pH (4.6-8.0) Ur Specific [place] (1.005-1.030) Urine Protein (Negative) Urine Glucose (UA) (Negative) mg/dL Urine Ketones (Negative) Urine Blood (Negative) Urine Nitrite (Negative) Urine Bilirubin (Negative) Urine Urobilinogen (0.2) mg/dL Ur Leukocyte Esterase (Negative) U Hyaline Cast (Auto) (0-2) /LPF Urine Microscopic RBC (0-5) /HPF Urine Microscopic WBC (0-5) /HPF Ur Epithelial Cells (None Seen) /HPF Urine Bacteria (None Seen) /HPF Urine Culture Reflexed (NO) Influenza Type A Ag NEGATIVE (NEGATIVE) Influenza Type B Ag NEGATIVE (NEGATIVE) RSV (PCR) NEGATIVE (NEGATIVE) SARS-CoV-2 (PCR) NEGATIVE (NEGATIVE) Group A Strep Antibody (NEGATIVE) 04/01/23 04/01/23 04/01/23 Range/Units 11:25 15:05 18:34 WBC (4.0-10.5) x10^3/uL RBC (4.1-5.4) x10^6/uL Hgb (12.0-16.0) g/dL Hct (35-47) % MCV (78-100) fL MCH (26-32) pg MCHC (32-36) g/dL RDW (11.5-14.0) % Plt Count (150-450) x10^3/uL MPV (7.5-11.0) fL Gran % (36.0-66.0) % Immature Gran % (Auto) (0.00-0.4) % Nucleat RBC Rel Count (0.00-0.1) % Eos # (Auto) (0-0.5) x10^3/uL Immature Gran # (Auto) (0.00-0.03) x10^3u/L Absolute Lymphs (auto) (1.0-4.6) x10^3/uL Absolute Monos (auto) (0.0-1.3) x10^3/uL Absolute Nucleated RBC (0.00-0.01) x10^3u/L Lymphocytes % (24.0-44.0) % Monocytes % (0.0-12.0) % Eosinophils % (0.00-5.0) % Basophils % (0.0-0.4) % Absolute Granulocytes (1.4-6.9) x10^3/uL Basophils # (0-0.4) x10^3/uL Sodium (137-145) mmol/L Sodium Direct (138-146) mmol/L Potassium (3.5-4.9) mmol/L Chloride (98-109) mmol/L Carbon Dioxide (24-29) mmol/L Anion Gap (5-15) MEQ/L BUN (7-17) mg/dL Venous BUN (8-26) mg/dL Creatinine (0.6-1.3) mg/dL Estimated GFR ML/MIN Glucose (70-105) mg/dL POC Glucometer (50 to 500) mg/dL Lactic Acid (0.4-2.0) Calcium (8.4-10.2) mg/dL Ionized Calcium (1.12-1.32) mmol/L Total Bilirubin (0.2-1.3) mg/dL AST (14-36) U/L ALT (0-35) U/L Alkaline Phosphatase (38-126) U/L Troponin (0.00-0.03) ng/mL Troponin I 0.034 0.026 (0.000-0.034) ng/mL Serum Total Protein (6.3-8.2) g/dL Albumin (3.5-5.0) g/dL Procalcitonin (0.030-0.080) ng/mL Urine Color Yellow (Yellow) Urine Appearance Clear (Clear) Urine pH 5.0 (4.6-8.0) Ur Specific [place] 1.015 (1.005-1.030) Urine Protein Negative (Negative) Urine Glucose (UA) >=1000 A (Negative) mg/dL Urine Ketones Negative (Negative) Urine Blood Negative (Negative) Urine Nitrite Negative (Negative) Urine Bilirubin Negative (Negative) Urine Urobilinogen 0.2 (0.2) mg/dL Ur Leukocyte Esterase Small A (Negative) U Hyaline Cast (Auto) 3-5 A (0-2) /LPF Urine Microscopic RBC 0-2 (0-5) /HPF Urine Microscopic WBC 21-50 A (0-5) /HPF Ur Epithelial Cells None Seen (None Seen) /HPF Urine Bacteria Many A (None Seen) /HPF Urine Culture Reflexed YES (NO) Influenza Type A Ag (NEGATIVE) Influenza Type B Ag (NEGATIVE) RSV (PCR) (NEGATIVE) SARS-CoV-2 (PCR) (NEGATIVE) Group A Strep Antibody (NEGATIVE) 04/01/23 04/01/23 04/01/23 Range/Units 21:21 21:29 21:44 WBC (4.0-10.5) x10^3/uL RBC (4.1-5.4) x10^6/uL Hgb (12.0-16.0) g/dL Hct (35-47) % MCV (78-100) fL MCH (26-32) pg MCHC (32-36) g/dL RDW (11.5-14.0) % Plt Count (150-450) x10^3/uL MPV (7.5-11.0) fL Gran % (36.0-66.0) % Immature Gran % (Auto) (0.00-0.4) % Nucleat RBC Rel Count (0.00-0.1) % Eos # (Auto) (0-0.5) x10^3/uL Immature Gran # (Auto) (0.00-0.03) x10^3u/L Absolute Lymphs (auto) (1.0-4.6) x10^3/uL Absolute Monos (auto) (0.0-1.3) x10^3/uL Absolute Nucleated RBC (0.00-0.01) x10^3u/L Lymphocytes % (24.0-44.0) % Monocytes % (0.0-12.0) % Eosinophils % (0.00-5.0) % Basophils % (0.0-0.4) % Absolute Granulocytes (1.4-6.9) x10^3/uL Basophils # (0-0.4) x10^3/uL Sodium (137-145) mmol/L Sodium Direct (138-146) mmol/L Potassium (3.5-4.9) mmol/L Chloride (98-109) mmol/L Carbon Dioxide (24-29) mmol/L Anion Gap (5-15) MEQ/L BUN (7-17) mg/dL Venous BUN (8-26) mg/dL Creatinine (0.6-1.3) mg/dL Estimated GFR ML/MIN Glucose 600 H* (70-105) mg/dL POC Glucometer 551 H* 538 H* (50 to 500) mg/dL Lactic Acid (0.4-2.0) Calcium (8.4-10.2) mg/dL Ionized Calcium (1.12-1.32) mmol/L Total Bilirubin (0.2-1.3) mg/dL AST (14-36) U/L ALT (0-35) U/L Alkaline Phosphatase (38-126) U/L Troponin (0.00-0.03) ng/mL Troponin I 0.024 (0.000-0.034) ng/mL Serum Total Protein (6.3-8.2) g/dL Albumin (3.5-5.0) g/dL Procalcitonin (0.030-0.080) ng/mL Urine Color (Yellow) Urine Appearance (Clear) Urine pH (4.6-8.0) Ur Specific [place] (1.005-1.030) Urine Protein (Negative) Urine Glucose (UA) (Negative) mg/dL Urine Ketones (Negative) Urine Blood (Negative) Urine Nitrite (Negative) Urine Bilirubin (Negative) Urine Urobilinogen (0.2) mg/dL Ur Leukocyte Esterase (Negative) U Hyaline Cast (Auto) (0-2) /LPF Urine Microscopic RBC (0-5) /HPF Urine Microscopic WBC (0-5) /HPF Ur Epithelial Cells (None Seen) /HPF Urine Bacteria (None Seen) /HPF Urine Culture Reflexed (NO) Influenza Type A Ag (NEGATIVE) Influenza Type B Ag (NEGATIVE) RSV (PCR) (NEGATIVE) SARS-CoV-2 (PCR) (NEGATIVE) Group A Strep Antibody (NEGATIVE) 04/01/23 04/01/23 04/02/23 Range/Units 23:10 23:25 03:47 WBC (4.0-10.5) x10^3/uL RBC (4.1-5.4) x10^6/uL Hgb (12.0-16.0) g/dL Hct (35-47) % MCV (78-100) fL MCH (26-32) pg MCHC (32-36) g/dL RDW (11.5-14.0) % Plt Count (150-450) x10^3/uL MPV (7.5-11.0) fL Gran % (36.0-66.0) % Immature Gran % (Auto) (0.00-0.4) % Nucleat RBC Rel Count (0.00-0.1) % Eos # (Auto) (0-0.5) x10^3/uL Immature Gran # (Auto) (0.00-0.03) x10^3u/L Absolute Lymphs (auto) (1.0-4.6) x10^3/uL Absolute Monos (auto) (0.0-1.3) x10^3/uL Absolute Nucleated RBC (0.00-0.01) x10^3u/L Lymphocytes % (24.0-44.0) % Monocytes % (0.0-12.0) % Eosinophils % (0.00-5.0) % Basophils % (0.0-0.4) % Absolute Granulocytes (1.4-6.9) x10^3/uL Basophils # (0-0.4) x10^3/uL Sodium (137-145) mmol/L Sodium Direct (138-146) mmol/L Potassium (3.5-4.9) mmol/L Chloride (98-109) mmol/L Carbon Dioxide (24-29) mmol/L Anion Gap (5-15) MEQ/L BUN (7-17) mg/dL Venous BUN (8-26) mg/dL Creatinine (0.6-1.3) mg/dL Estimated GFR ML/MIN Glucose 590 H* (70-105) mg/dL POC Glucometer 568 H* 428 H (50 to 500) mg/dL Lactic Acid (0.4-2.0) Calcium (8.4-10.2) mg/dL Ionized Calcium (1.12-1.32) mmol/L Total Bilirubin (0.2-1.3) mg/dL AST (14-36) U/L ALT (0-35) U/L Alkaline Phosphatase (38-126) U/L Troponin (0.00-0.03) ng/mL Troponin I (0.000-0.034) ng/mL Serum Total Protein (6.3-8.2) g/dL Albumin (3.5-5.0) g/dL Procalcitonin (0.030-0.080) ng/mL Urine Color (Yellow) Urine Appearance (Clear) Urine pH (4.6-8.0) Ur Specific [place] (1.005-1.030) Urine Protein (Negative) Urine Glucose (UA) (Negative) mg/dL Urine Ketones (Negative) Urine Blood (Negative) Urine Nitrite (Negative) Urine Bilirubin (Negative) Urine Urobilinogen (0.2) mg/dL Ur Leukocyte Esterase (Negative) U Hyaline Cast (Auto) (0-2) /LPF Urine Microscopic RBC (0-5) /HPF Urine Microscopic WBC (0-5) /HPF Ur Epithelial Cells (None Seen) /HPF Urine Bacteria (None Seen) /HPF Urine Culture Reflexed (NO) Influenza Type A Ag (NEGATIVE) Influenza Type B Ag (NEGATIVE) RSV (PCR) (NEGATIVE) SARS-CoV-2 (PCR) (NEGATIVE) Group A Strep Antibody (NEGATIVE) 04/02/23 04/02/23 04/02/23 Range/Units 04:00 05:44 07:37 WBC 15.8 H (4.0-10.5) x10^3/uL RBC 4.15 (4.1-5.4) x10^6/uL Hgb 11.5 L (12.0-16.0) g/dL Hct 36.8 (35-47) % MCV 88.7 (78-100) fL MCH 27.7 (26-32) pg MCHC 31.3 L (32-36) g/dL RDW 15.6 H (11.5-14.0) % Plt Count 384 (150-450) x10^3/uL MPV 10.7 (7.5-11.0) fL Gran % (36.0-66.0) % Immature Gran % (Auto) (0.00-0.4) % Nucleat RBC Rel Count (0.00-0.1) % Eos # (Auto) (0-0.5) x10^3/uL Immature Gran # (Auto) (0.00-0.03) x10^3u/L Absolute Lymphs (auto) (1.0-4.6) x10^3/uL Absolute Monos (auto) (0.0-1.3) x10^3/uL Absolute Nucleated RBC (0.00-0.01) x10^3u/L Lymphocytes % (24.0-44.0) % Monocytes % (0.0-12.0) % Eosinophils % (0.00-5.0) % Basophils % (0.0-0.4) % Absolute Granulocytes (1.4-6.9) x10^3/uL Basophils # (0-0.4) x10^3/uL Sodium 138 (137-145) mmol/L Sodium Direct (138-146) mmol/L Potassium 3.6 (3.5-4.9) mmol/L Chloride 93 L (98-109) mmol/L Carbon Dioxide 30 (24-29) mmol/L Anion Gap 19.0 H (5-15) MEQ/L BUN 44 H (7-17) mg/dL Venous BUN (8-26) mg/dL Creatinine 1.79 H (0.6-1.3) mg/dL Estimated GFR 29.6 ML/MIN Glucose 390 H (70-105) mg/dL POC Glucometer 320 H (50 to 500) mg/dL Lactic Acid (0.4-2.0) Calcium 8.8 (8.4-10.2) mg/dL Ionized Calcium (1.12-1.32) mmol/L Total Bilirubin 0.50 (0.2-1.3) mg/dL AST 27 (14-36) U/L ALT 27 (0-35) U/L Alkaline Phosphatase 96 (38-126) U/L Troponin (0.00-0.03) ng/mL Troponin I (0.000-0.034) ng/mL Serum Total Protein 8.5 H (6.3-8.2) g/dL Albumin 3.9 (3.5-5.0) g/dL Procalcitonin (0.030-0.080) ng/mL Urine Color (Yellow) Urine Appearance (Clear) Urine pH (4.6-8.0) Ur Specific [place] (1.005-1.030) Urine Protein (Negative) Urine Glucose (UA) (Negative) mg/dL Urine Ketones (Negative) Urine Blood (Negative) Urine Nitrite (Negative) Urine Bilirubin (Negative) Urine Urobilinogen (0.2) mg/dL Ur Leukocyte Esterase (Negative) U Hyaline Cast (Auto) (0-2) /LPF Urine Microscopic RBC (0-5) /HPF Urine Microscopic WBC (0-5) /HPF Ur Epithelial Cells (None Seen) /HPF Urine Bacteria (None Seen) /HPF Urine Culture Reflexed (NO) Influenza Type A Ag (NEGATIVE) Influenza Type B Ag (NEGATIVE) RSV (PCR) (NEGATIVE) SARS-CoV-2 (PCR) (NEGATIVE) Group A Strep Antibody (NEGATIVE) Radiology Exams: Radiology Procedures Category Date Time Status CHEST 1 VIEW (PORTABLE) DAILY Exams 04/02/23 07:00 Completed CHEST 1 VIEW (PORTABLE) DAILY Exams 04/03/23 07:00 Ordered CHEST 1 VIEW (PORTABLE) DAILY Exams 04/04/23 07:00 Ordered CHEST 1 VIEW (PORTABLE) DAILY Exams 04/05/23 07:00 Ordered CHEST 1 VIEW (PORTABLE) Stat Exams 04/01/23 10:36 Completed Multi-Disciplinary Progress Notes: Multi-Disciplinary Progress Notes 04/01/23 14:05 Case Management Note by Makenna Griffin PATIENT DOES NOT HAVE HOME OXYGEN OR A NEB MACHINE AT HOME- IF NEEDED AT [place]- THESE WILL NEED ORDERED THRU [facility]. ORDER FORM PLACED ON FRONT OF CHART Initialized on 04/01/23 14:05 - END OF NOTE Assessment/Plan (1) Pneumonia Current Visit: Yes Status: Acute Assessment & Plan: continue rocephin/zithromax, nebs Code(s): J18.9 - PNEUMONIA, UNSPECIFIED ORGANISM (2) Acute respiratory failure with hypoxia Current Visit: Yes Status: Acute Code(s): J96.01 - ACUTE RESPIRATORY FAILURE WITH HYPOXIA
[2023-04-02] MEDS ORDERED: NON-FORMULARY ITEM (Amlodipine Besylate [Norvasc] 10 MG Tablet) PO SCH (10:00)
[2023-04-02] MEDS: Singulair 10 MG PO SCH (10:53)
[2023-04-02] MEDS: Klor Con PO SCH (10:53)
[2023-04-02] MEDS: Lyrica 25 MG PO SCH ×2 (10:53→22:02)
[2023-04-02] MEDS: DEMADEX 20 MG PO SCH (10:53)
[2023-04-02] MEDS: Cordarone 200 MG PO SCH (10:53)
[2023-04-02] MEDS: Aldactone 25 MG PO SCH (10:53)
[2023-04-02] MEDS: ELIQUIS 2.5 MG TABLET PO SCH ×2 (10:54→22:02)
[2023-04-02] MEDS: NORVASC 5 MG PO SCH (10:54)
[2023-04-02] MEDS: Flonase NASAL NS SCH ×2 (10:54→22:02)
[2023-04-02] MEDS: Lantus Insulin SQ SCH (10:55)
[2023-04-02] MEDS: ROCEPHIN 1 Gm-D5w 50 ml Bag** 1 G/50 ML IVPB IV SCH (10:57)
[2023-04-02] MEDS: Zithromax 500 MG/ 250 ML NaCl Premix 500 MG/250 ML IVPB IV SCH (11:55)
[2023-04-02] MEDS: PATIENT OWN MEDICATION IH SCH (19:13)
[2023-04-02] MEDS: ECOTRIN 81 MG PO SCH (22:01)
[2023-04-02] MEDS: ZYLOPRIM 300 MG PO SCH (22:01)
[2023-04-02] MEDS: Zanaflex 4 MG PO SCH (22:02)
[2023-04-02] MEDS: MELATONIN PO PRN (22:08)
[2023-04-03] MEDS: DUONEB 0.5-3 MG/3 ml Neb IH SCH ×6 (02:49→22:55)
[2023-04-03 06:00] LABS: Absolute Neutrophil Ct (ANC) 16.55 x10^3/uL (1.4-6.9); BASOPHIL % 0.3 % (0.0-0.4); Basophil (Absolute #) 0.05 x10^3/uL (0-0.4); Eosinophil % 0.3 % (0.00-5.0); Eosinophil (Absolute #) 0.05 x10^3/uL (0-0.5); Hematocrit 36.1 % (35-47); Hemoglobin 11.3 g/dL (12.0-16.0); Lymphocyte (Absolute #) 0.95 x10^3/uL (1.0-4.6); Lymphocytes % 4.9 % (24.0-44.0); Mean Cell Volume 88.3 fL (78-100); Mean Corpuscular Hemoglobin 27.6 pg (26-32); Mean Corpuscular Hgb Concent. 31.3 g/dL (32-36); Mean Platelet Volume 10.6 fL (7.5-11.0); Monocyte (Absolute #) 1.42 x10^3/uL (0.0-1.3); Monocytes % 7.4 % (0.0-12.0); Neutrophil % 86.1 % (36.0-66.0); Platelet Count 441 x10^3/uL (150-450); Red Blood Count 4.09 x10^6/uL (4.1-5.4); Red Cell Distribution Width 15.8 % (11.5-14.0); White Blood Count 19.2 x10^3/uL (4.0-10.5)
[2023-04-03 06:11] LABS: Calcium 9.1 mg/dL (8.4-10.2); Creatinine 1 1.48 mg/dL (0.52-1.04); EST GLOMERULAR FILTRATION RATE 36.8 ML/MIN; Potassium 4.2 mmol/L (3.5-5.1)
[2023-04-03] MEDS: PATIENT OWN MEDICATION IH SCH ×2 (06:56→19:12)
--- NOTE | 2023-04-03 07:51 | XRAY ---
Indication: Pneumonia. Comparison: One day earlier Portable chest unchanged again demonstrating bilateral mid to lower lung patchy airspace disease left greater than right. Heart not enlarged. No new cardiopulmonary abnormalities.
[2023-04-03] MEDS: HUMALOG SQ PRN ×4 (08:18→21:19)
--- NOTE | 2023-04-03 09:26 | PCM.NOTE ---
Date and Time: 04/03/23924 Subjective Assessment: patient is not feeling well today, not able to sleep last night and wheezing and feels more short of breath today Objective Exam General Appearance: no apparent distress Neurologic Exam: alert, cooperative Respiratory Exam: wheezing Cardiovascular Exam: regular rate/rhythm, normal heart sounds Gastrointestinal/Abdomen Exam: soft, No tenderness, No mass Extremity Exam: normal inspection, normal range of motion OBJECTIVE DATA Vital Signs: Vital Signs - 24 hr Temp Pulse Resp BP Pulse Ox 04/03/23 07:53 97.7 F 101 H 19 160/67 91 L 04/03/23 06:59 90 22 91 L 04/03/23 03:54 97.8 F 84 24 156/70 91 L 04/03/23 02:49 87 24 91 L 04/02/23 23:41 97.3 F 86 24 165/69 92 L 04/02/23 23:07 85 24 91 L 04/02/23 19:29 97.1 F 88 20 154/65 93 L 04/02/23 19:13 98 H 26 H 95 04/02/23 16:00 97.2 F 86 19 144/68 90 L 04/02/23 14:36 82 20 94 L 04/02/23 12:00 97.5 F 90 18 152/69 90 L 04/02/23 10:33 81 22 95 Pain Assessment - Last Documented Pain Intensity 0 Pain Scale Used 0-10 Pain Scale Intake and Output: Intake & Output 03/31/23 04/01/23 04/02/23 04/03/23 11:59 11:59 11:59 11:59 Intake Total 2000 1440 Output Total 800 Balance 1200 1440 Weight 98.2 kg 98.2 kg 98.2 kg Lab Results: Lab Results-Last 24 Hours 04/02/23 04/02/23 04/02/23 Range/Units 04:00 11:56 16:28 WBC (4.0-10.5) x10^3/uL RBC (4.1-5.4) x10^6/uL Hgb (12.0-16.0) g/dL Hct (35-47) % MCV (78-100) fL MCH (26-32) pg MCHC (32-36) g/dL RDW (11.5-14.0) % Plt Count (150-450) x10^3/uL MPV (7.5-11.0) fL Gran % (36.0-66.0) % Immature Gran % (Auto) (0.00-0.4) % Nucleat RBC Rel Count (0.00-0.1) % Eos # (Auto) (0-0.5) x10^3/uL Immature Gran # (Auto) (0.00-0.03) x10^3u/L Absolute Lymphs (auto) (1.0-4.6) x10^3/uL Absolute Monos (auto) (0.0-1.3) x10^3/uL Absolute Nucleated RBC (0.00-0.01) x10^3u/L Lymphocytes % (24.0-44.0) % Monocytes % (0.0-12.0) % Eosinophils % (0.00-5.0) % Basophils % (0.0-0.4) % Absolute Granulocytes (1.4-6.9) x10^3/uL Basophils # (0-0.4) x10^3/uL Sodium (137-145) mmol/L Potassium (3.5-5.1) mmol/L Chloride (98-107) mmol/L Carbon Dioxide (22-30) mmol/L Anion Gap (5-15) MEQ/L BUN (7-17) mg/dL Creatinine (0.52-1.04) mg/dL Estimated GFR ML/MIN Glucose (74-106) mg/dL POC Glucometer 382 H 319 H (74 to 106) mg/dL Hemoglobin A1c 6.64 H (4.5-6.0) % Calcium (8.4-10.2) mg/dL 04/02/23 04/03/23 04/03/23 Range/Units 21:13 05:39 05:39 WBC 19.2 H (4.0-10.5) x10^3/uL RBC 4.09 L (4.1-5.4) x10^6/uL Hgb 11.3 L (12.0-16.0) g/dL Hct 36.1 (35-47) % MCV 88.3 (78-100) fL MCH 27.6 (26-32) pg MCHC 31.3 L (32-36) g/dL RDW 15.8 H (11.5-14.0) % Plt Count 441 (150-450) x10^3/uL MPV 10.6 (7.5-11.0) fL Gran % 86.1 H (36.0-66.0) % Immature Gran % (Auto) 1.0 H (0.00-0.4) % Nucleat RBC Rel Count 0.0 (0.00-0.1) % Eos # (Auto) 0.05 (0-0.5) x10^3/uL Immature Gran # (Auto) 0.20 H (0.00-0.03) x10^3u/L Absolute Lymphs (auto) 0.95 L (1.0-4.6) x10^3/uL Absolute Monos (auto) 1.42 H (0.0-1.3) x10^3/uL Absolute Nucleated RBC 0.00 (0.00-0.01) x10^3u/L Lymphocytes % 4.9 L (24.0-44.0) % Monocytes % 7.4 (0.0-12.0) % Eosinophils % 0.3 (0.00-5.0) % Basophils % 0.3 (0.0-0.4) % Absolute Granulocytes 16.55 H (1.4-6.9) x10^3/uL Basophils # 0.05 (0-0.4) x10^3/uL Sodium 140 (137-145) mmol/L Potassium 4.2 (3.5-5.1) mmol/L Chloride 92 L (98-107) mmol/L Carbon Dioxide 34 H (22-30) mmol/L Anion Gap 18.0 H (5-15) MEQ/L BUN 49 H (7-17) mg/dL Creatinine 1.48 H (0.52-1.04) mg/dL Estimated GFR 36.8 ML/MIN Glucose 172 H (74-106) mg/dL POC Glucometer 297 H (74 to 106) mg/dL Hemoglobin A1c (4.5-6.0) % Calcium 9.1 (8.4-10.2) mg/dL 04/03/23 Range/Units 07:38 WBC (4.0-10.5) x10^3/uL RBC (4.1-5.4) x10^6/uL Hgb (12.0-16.0) g/dL Hct (35-47) % MCV (78-100) fL MCH (26-32) pg MCHC (32-36) g/dL RDW (11.5-14.0) % Plt Count (150-450) x10^3/uL MPV (7.5-11.0) fL Gran % (36.0-66.0) % Immature Gran % (Auto) (0.00-0.4) % Nucleat RBC Rel Count (0.00-0.1) % Eos # (Auto) (0-0.5) x10^3/uL Immature Gran # (Auto) (0.00-0.03) x10^3u/L Absolute Lymphs (auto) (1.0-4.6) x10^3/uL Absolute Monos (auto) (0.0-1.3) x10^3/uL Absolute Nucleated RBC (0.00-0.01) x10^3u/L Lymphocytes % (24.0-44.0) % Monocytes % (0.0-12.0) % Eosinophils % (0.00-5.0) % Basophils % (0.0-0.4) % Absolute Granulocytes (1.4-6.9) x10^3/uL Basophils # (0-0.4) x10^3/uL Sodium (137-145) mmol/L Potassium (3.5-5.1) mmol/L Chloride (98-107) mmol/L Carbon Dioxide (22-30) mmol/L Anion Gap (5-15) MEQ/L BUN (7-17) mg/dL Creatinine (0.52-1.04) mg/dL Estimated GFR ML/MIN Glucose (74-106) mg/dL POC Glucometer 185 H (74 to 106) mg/dL Hemoglobin A1c (4.5-6.0) % Calcium (8.4-10.2) mg/dL Radiology Exams: Radiology Procedures Category Date Time Status CHEST 1 VIEW (PORTABLE) DAILY Exams 04/02/23 07:00 Completed CHEST 1 VIEW (PORTABLE) DAILY Exams 04/03/23 07:00 Completed CHEST 1 VIEW (PORTABLE) DAILY Exams 04/04/23 07:00 Ordered CHEST 1 VIEW (PORTABLE) DAILY Exams 04/05/23 07:00 Ordered CHEST 1 VIEW (PORTABLE) Stat Exams 04/01/23 10:36 Completed Assessment/Plan (1) Pneumonia Current Visit: Yes Status: Acute Assessment & Plan: continue rocephin/zithromax Code(s): J18.9 - PNEUMONIA, UNSPECIFIED ORGANISM (2) Acute respiratory failure with hypoxia Current Visit: Yes Status: Acute Assessment & Plan: add prednisone 20mg Code(s): J96.01 - ACUTE RESPIRATORY FAILURE WITH HYPOXIA
[2023-04-03] MEDS ORDERED: DELTASONE 20 MG PO SCH (10:00)
[2023-04-03] MEDS: Aldactone 25 MG PO SCH (10:03)
[2023-04-03] MEDS: ELIQUIS 2.5 MG TABLET PO SCH ×2 (10:03→21:05)
[2023-04-03] MEDS: DEMADEX 20 MG PO SCH (10:03)
[2023-04-03] MEDS: Klor Con PO SCH (10:04)
[2023-04-03] MEDS: Lyrica 25 MG PO SCH ×2 (10:04→21:06)
[2023-04-03] MEDS: Singulair 10 MG PO SCH (10:04)
[2023-04-03] MEDS: Flonase NASAL NS SCH ×2 (10:04→21:13)
[2023-04-03] MEDS: NORVASC 5 MG PO SCH (10:04)
[2023-04-03] MEDS: Cordarone 200 MG PO SCH (10:04)
[2023-04-03] MEDS: Lantus Insulin SQ SCH (10:05)
[2023-04-03] MEDS: ROCEPHIN 1 Gm-D5w 50 ml Bag** 1 G/50 ML IVPB IV SCH (10:06)
[2023-04-03] MEDS: Zithromax 500 MG/ 250 ML NaCl Premix 500 MG/250 ML IVPB IV SCH (11:05)
[2023-04-03] MEDS: ULTRAM 50 MG PO PRN ×2 (11:17→21:06)
[2023-04-03] MEDS: ECOTRIN 81 MG PO SCH (21:06)
[2023-04-03] MEDS: Ambien 5 MG Tablet PO PRN (21:06)
[2023-04-03] MEDS: MELATONIN PO PRN (21:06)
[2023-04-03] MEDS: ZYLOPRIM 300 MG PO SCH (21:06)
[2023-04-03] MEDS: Zanaflex 4 MG PO SCH (21:06)
[2023-04-04] MEDS: DUONEB 0.5-3 MG/3 ml Neb IH SCH ×6 (02:58→22:51)
[2023-04-04 04:52] LABS: BASOPHIL % 0.4 % (0.0-0.4); Basophil (Absolute #) 0.05 x10^3/uL (0-0.4); Eosinophil % 0.4 % (0.00-5.0); Eosinophil (Absolute #) 0.05 x10^3/uL (0-0.5); Hematocrit 38.6 % (35-47); Hemoglobin 11.9 g/dL (12.0-16.0); IMMATURE GRAN # 0.23 x10^3u/L (0.00-0.03); IMMATURE GRAN % 1.7 % (0.00-0.4); Lymphocyte (Absolute #) 0.88 x10^3/uL (1.0-4.6); Lymphocytes % 6.4 % (24.0-44.0); Mean Cell Volume 88.9 fL (78-100); Mean Corpuscular Hemoglobin 27.4 pg (26-32); Mean Corpuscular Hgb Concent. 30.8 g/dL (32-36); Mean Platelet Volume 11.2 fL (7.5-11.0); Monocyte (Absolute #) 0.99 x10^3/uL (0.0-1.3); Monocytes % 7.2 % (0.0-12.0); Neutrophil % 83.9 % (36.0-66.0); Platelet Count 347 x10^3/uL (150-450); Red Blood Count 4.34 x10^6/uL (4.1-5.4); Red Cell Distribution Width 15.8 % (11.5-14.0); White Blood Count 13.7 x10^3/uL (4.0-10.5)
[2023-04-04 05:07] LABS: ALBUMIN 3.8 g/dL (3.5-5.0); ANION GAP 15.1 MEQ/L (5-15); BILIRUBIN,TOTAL 0.7 mg/dL (0.2-1.3); Calcium 9.1 mg/dL (8.4-10.2); Creatinine 1 1.27 mg/dL (0.52-1.04); Potassium 3.8 mmol/L (3.5-5.1); Total Protein 8.4 g/dL (6.3-8.2)
[2023-04-04] MEDS: PATIENT OWN MEDICATION IH SCH ×2 (07:28→18:13)
--- NOTE | 2023-04-04 08:15 | PCM.NOTE ---
Date and Time: 04/04/23811 Subjective Assessment: patient still requiring oxygen and felt short of breath and panicky when lying flat for chest xray this am Objective Exam General Appearance: no apparent distress Neurologic Exam: alert, oriented x 3 Respiratory Exam: wheezing Cardiovascular Exam: regular rate/rhythm, normal heart sounds Gastrointestinal/Abdomen Exam: soft, No tenderness, No mass Extremity Exam: normal inspection, normal range of motion OBJECTIVE DATA Vital Signs: Vital Signs - 24 hr Temp Pulse Resp BP Pulse Ox 04/04/23 07:28 74 18 92 L 04/04/23 07:22 98.1 F 93 H 16 147/67 100 04/04/23 03:55 97.5 F 73 22 170/70 91 L 04/04/23 02:58 82 22 91 L 04/03/23 22:55 20 04/03/23 19:40 96.9 F 85 21 176/74 92 L 04/03/23 19:10 85 21 92 L 04/03/23 16:00 97.3 F 95 H 20 170/77 91 L 04/03/23 14:58 96 H 20 91 L 04/03/23 12:00 97.7 F 104 H 20 170/72 93 L 04/03/23 10:42 102 H 24 90 L Pain Assessment - Last Documented Pain Intensity 0 Pain Scale Used 0-10 Pain Scale Intake and Output: Intake & Output 04/01/23 04/02/23 04/03/23 04/04/23 11:59 11:59 11:59 11:59 Intake Total 1999 1440 1822 Output Total 800 Balance 1200 1440 1822 Weight 98.2 kg 98.2 kg 98.2 kg 99.1 kg Lab Results: Lab Results-Last 24 Hours 04/03/23 04/03/23 04/03/23 Range/Units 11:45 16:18 21:04 WBC (4.0-10.5) x10^3/uL RBC (4.1-5.4) x10^6/uL Hgb (12.0-16.0) g/dL Hct (35-47) % MCV (78-100) fL MCH (26-32) pg MCHC (32-36) g/dL RDW (11.5-14.0) % Plt Count (150-450) x10^3/uL MPV (7.5-11.0) fL Gran % (36.0-66.0) % Immature Gran % (Auto) (0.00-0.4) % Nucleat RBC Rel Count (0.00-0.1) % Eos # (Auto) (0-0.5) x10^3/uL Immature Gran # (Auto) (0.00-0.03) x10^3u/L Absolute Lymphs (auto) (1.0-4.6) x10^3/uL Absolute Monos (auto) (0.0-1.3) x10^3/uL Absolute Nucleated RBC (0.00-0.01) x10^3u/L Lymphocytes % (24.0-44.0) % Monocytes % (0.0-12.0) % Eosinophils % (0.00-5.0) % Basophils % (0.0-0.4) % Absolute Granulocytes (1.4-6.9) x10^3/uL Basophils # (0-0.4) x10^3/uL Sodium (137-145) mmol/L Potassium (3.5-5.1) mmol/L Chloride (98-107) mmol/L Carbon Dioxide (22-30) mmol/L Anion Gap (5-15) MEQ/L BUN (7-17) mg/dL Creatinine (0.52-1.04) mg/dL Estimated GFR ML/MIN Glucose (74-106) mg/dL POC Glucometer 204 H 335 H 272 H (74 to 106) mg/dL Calcium (8.4-10.2) mg/dL Total Bilirubin (0.2-1.3) mg/dL AST (14-36) U/L ALT (0-35) U/L Alkaline Phosphatase (38-126) U/L Serum Total Protein (6.3-8.2) g/dL Albumin (3.5-5.0) g/dL 04/04/23 04/04/23 04/04/23 Range/Units 04:18 04:18 07:13 WBC 13.7 H (4.0-10.5) x10^3/uL RBC 4.34 (4.1-5.4) x10^6/uL Hgb 11.9 L (12.0-16.0) g/dL Hct 38.6 (35-47) % MCV 88.9 (78-100) fL MCH 27.4 (26-32) pg MCHC 30.8 L (32-36) g/dL RDW 15.8 H (11.5-14.0) % Plt Count 347 (150-450) x10^3/uL MPV 11.2 H (7.5-11.0) fL Gran % 83.9 H (36.0-66.0) % Immature Gran % (Auto) 1.7 H (0.00-0.4) % Nucleat RBC Rel Count 0.0 (0.00-0.1) % Eos # (Auto) 0.05 (0-0.5) x10^3/uL Immature Gran # (Auto) 0.23 H (0.00-0.03) x10^3u/L Absolute Lymphs (auto) 0.88 L (1.0-4.6) x10^3/uL Absolute Monos (auto) 0.99 (0.0-1.3) x10^3/uL Absolute Nucleated RBC 0.00 (0.00-0.01) x10^3u/L Lymphocytes % 6.4 L (24.0-44.0) % Monocytes % 7.2 (0.0-12.0) % Eosinophils % 0.4 (0.00-5.0) % Basophils % 0.4 (0.0-0.4) % Absolute Granulocytes 11.50 H (1.4-6.9) x10^3/uL Basophils # 0.05 (0-0.4) x10^3/uL Sodium 141 (137-145) mmol/L Potassium 3.8 (3.5-5.1) mmol/L Chloride 94 L (98-107) mmol/L Carbon Dioxide 36 H (22-30) mmol/L Anion Gap 15.1 H (5-15) MEQ/L BUN 48 H (7-17) mg/dL Creatinine 1.27 H (0.52-1.04) mg/dL Estimated GFR 44.0 ML/MIN Glucose 172 H (74-106) mg/dL POC Glucometer 218 H (74 to 106) mg/dL Calcium 9.1 (8.4-10.2) mg/dL Total Bilirubin 0.70 (0.2-1.3) mg/dL AST 43 H (14-36) U/L ALT 37 H (0-35) U/L Alkaline Phosphatase 96 (38-126) U/L Serum Total Protein 8.4 H (6.3-8.2) g/dL Albumin 3.8 (3.5-5.0) g/dL Radiology Exams: Radiology Procedures Category Date Time Status CHEST 1 VIEW (PORTABLE) DAILY Exams 04/03/23 07:00 Completed CHEST 1 VIEW (PORTABLE) DAILY Exams 04/04/23 07:00 Ordered CHEST 1 VIEW (PORTABLE) DAILY Exams 04/05/23 07:00 Ordered Assessment/Plan (1) Pneumonia Current Visit: Yes Status: Acute Assessment & Plan: continue rocephin and zithromax, increase prednisone dose at this time. Code(s): J18.9 - PNEUMONIA, UNSPECIFIED ORGANISM (2) Acute respiratory failure with hypoxia Current Visit: Yes Status: Acute Code(s): J96.01 - ACUTE RESPIRATORY FAILURE WITH HYPOXIA
[2023-04-04] MEDS: Singulair 10 MG PO SCH (09:51)
[2023-04-04] MEDS: ELIQUIS 2.5 MG TABLET PO SCH ×2 (09:51→21:20)
[2023-04-04] MEDS: DEMADEX 20 MG PO SCH (09:52)
[2023-04-04] MEDS: DELTASONE 20 MG PO SCH (09:52)
[2023-04-04] MEDS: Cordarone 200 MG PO SCH (09:52)
[2023-04-04] MEDS: Klor Con PO SCH (09:52)
[2023-04-04] MEDS: Lantus Insulin SQ SCH (09:53)
[2023-04-04] MEDS: Aldactone 25 MG PO SCH (09:53)
[2023-04-04] MEDS: NORVASC 5 MG PO SCH (09:53)
[2023-04-04] MEDS: Lyrica 25 MG PO SCH ×2 (10:11→21:20)
[2023-04-04] MEDS: ROCEPHIN 1 Gm-D5w 50 ml Bag** 1 G/50 ML IVPB IV SCH (10:12)
[2023-04-04] MEDS: Zithromax 500 MG/ 250 ML NaCl Premix 500 MG/250 ML IVPB IV SCH (10:12)
[2023-04-04] MEDS: Flonase NASAL NS SCH ×2 (10:47→21:20)
[2023-04-04] MEDS: HUMALOG SQ PRN ×3 (12:22→21:23)
[2023-04-04] MEDS: Imdur 30 MG PO SCH (17:05)
[2023-04-04] MEDS: ECOTRIN 81 MG PO SCH (21:20)
[2023-04-04] MEDS: MELATONIN PO PRN (21:21)
[2023-04-04] MEDS: ZYLOPRIM 300 MG PO SCH (21:21)
[2023-04-04] MEDS: Zanaflex 4 MG PO SCH (21:21)
[2023-04-05] MEDS: DUONEB 0.5-3 MG/3 ml Neb IH SCH ×6 (03:24→22:22)
[2023-04-05 05:07] LABS: Absolute Neutrophil Ct (ANC) 13.45 x10^3/uL (1.4-6.9); BASOPHIL % 0.5 % (0.0-0.4); Basophil (Absolute #) 0.08 x10^3/uL (0-0.4); Eosinophil % 0.7 % (0.00-5.0); Eosinophil (Absolute #) 0.11 x10^3/uL (0-0.5); Hematocrit 35.5 % (35-47); Hemoglobin 11.1 g/dL (12.0-16.0); IMMATURE GRAN # 0.37 x10^3u/L (0.00-0.03); IMMATURE GRAN % 2.2 % (0.00-0.4); Lymphocyte (Absolute #) 1.78 x10^3/uL (1.0-4.6); Lymphocytes % 10.7 % (24.0-44.0); Mean Cell Volume 87.2 fL (78-100); Mean Corpuscular Hemoglobin 27.3 pg (26-32); Mean Corpuscular Hgb Concent. 31.3 g/dL (32-36); Monocyte (Absolute #) 0.89 x10^3/uL (0.0-1.3); Monocytes % 5.3 % (0.0-12.0); Neutrophil % 80.6 % (36.0-66.0); Platelet Count 454 x10^3/uL (150-450); Red Blood Count 4.07 x10^6/uL (4.1-5.4); Red Cell Distribution Width 15.8 % (11.5-14.0); White Blood Count 16.7 x10^3/uL (4.0-10.5)
[2023-04-05 05:23] LABS: ALBUMIN 3.6 g/dL (3.5-5.0); ANION GAP 12.5 MEQ/L (5-15); BILIRUBIN,TOTAL 0.6 mg/dL (0.2-1.3); Calcium 9.1 mg/dL (8.4-10.2); Creatinine 1 1.21 mg/dL (0.52-1.04); EST GLOMERULAR FILTRATION RATE 46.5 ML/MIN; Potassium 3.8 mmol/L (3.5-5.1); Total Protein 7.9 g/dL (6.3-8.2)
[2023-04-05] MEDS: PATIENT OWN MEDICATION IH SCH ×2 (07:01→18:50)
[2023-04-05] MEDS: Imdur 30 MG PO SCH (08:17)
--- NOTE | 2023-04-05 08:35 | XRAY ---
Indication: Pneumonia. Comparison: One day earlier. Portable chest unchanged again demonstrating bilateral mid to lower lung patchy airspace disease, left greater than right. Heart remains borderline enlarged. No new cardiopulmonary abnormalities.
[2023-04-05] MEDS: DELTASONE 20 MG PO SCH (10:13)
[2023-04-05] MEDS: NORVASC 5 MG PO SCH (10:13)
[2023-04-05] MEDS: Lyrica 25 MG PO SCH ×2 (10:13→21:41)
[2023-04-05] MEDS: DEMADEX 20 MG PO SCH (10:14)
[2023-04-05] MEDS: Klor Con PO SCH (10:14)
[2023-04-05] MEDS: Cordarone 200 MG PO SCH (10:14)
[2023-04-05] MEDS: Flonase NASAL NS SCH ×2 (10:14→21:41)
[2023-04-05] MEDS: Singulair 10 MG PO SCH (10:14)
[2023-04-05] MEDS: ELIQUIS 2.5 MG TABLET PO SCH ×2 (10:14→21:40)
[2023-04-05] MEDS: Aldactone 25 MG PO SCH (10:14)
[2023-04-05] MEDS: ROCEPHIN 1 Gm-D5w 50 ml Bag** 1 G/50 ML IVPB IV SCH (10:18)
[2023-04-05] MEDS: Lantus Insulin SQ SCH (10:58)
[2023-04-05] MEDS: Zithromax 500 MG/ 250 ML NaCl Premix 500 MG/250 ML IVPB IV SCH (10:59)
--- NOTE | 2023-04-05 12:32 | PCM.NOTE ---
Date and Time: 04/05/23 1230 Subjective Assessment: Pt seen by me this morning approx 0800. States she is better but can't quit coughing. - Review of Systems Constitutional: No Fever Respiratory: Cough, Short Of Breath Objective Exam General Appearance: no apparent distress, obese Neurologic Exam: alert, cooperative, normal mood/affect Skin Exam: normal color, warm, dry, No rash Eye Exam: eyes nml inspection Ears, Nose, Throat Exam: moist mucous membranes Neck Exam: normal inspection, non-tender, No lymphadenopathy, No subcutaneous emphysema, No thyromegaly Respiratory Exam: diminished breath sounds (fair air exchange), wheezing (faint), No crackles/rales, No rhonchi Cardiovascular Exam: normal heart sounds, irregular, No murmur Gastrointestinal/Abdomen Exam: soft, normal bowel sounds, No tenderness, No distention, No mass, No guarding, No rebound Extremity Exam: normal inspection, pedal edema (1+ LE edema. dry skin pretibial) Back Exam: normal inspection, No rash OBJECTIVE DATA Vital Signs: Vital Signs - 24 hr Temp Pulse Resp BP Pulse Ox 04/05/23 11:30 98.6 F 87 18 153/65 91 L 04/05/23 10:55 71 22 94 L 04/05/23 07:04 78 20 94 L 04/05/23 06:50 98.5 F 76 18 158/72 90 L 04/05/23 03:46 97.8 F 65 20 139/64 92 L 04/05/23 03:24 76 20 93 L 04/04/23 23:43 97.0 F 71 19 146/65 94 L 04/04/23 22:51 73 22 92 L 04/04/23 20:00 97.5 F 88 22 169/70 92 L 04/04/23 18:16 87 22 91 L 04/04/23 15:44 98.0 F 98 H 16 166/72 90 L 04/04/23 14:38 80 16 92 L Pain Assessment - Last Documented Pain Intensity 0 Pain Scale Used 0-10 Pain Scale Intake and Output: Intake & Output 04/03/23 04/04/23 04/05/23 04/06/23 11:59 11:59 11:59 11:59 Intake Total 1440 1822 1240 Balance 1440 1822 1240 Weight 98.2 kg 99.1 kg 99.1 kg Lab Results: Lab Results-Last 24 Hours 04/04/23 04/04/23 04/05/23 Range/Units 16:14 21:15 04:26 WBC 16.7 H (4.0-10.5) x10^3/uL RBC 4.07 L (4.1-5.4) x10^6/uL Hgb 11.1 L (12.0-16.0) g/dL Hct 35.5 (35-47) % MCV 87.2 (78-100) fL MCH 27.3 (26-32) pg MCHC 31.3 L (32-36) g/dL RDW 15.8 H (11.5-14.0) % Plt Count 454 H (150-450) x10^3/uL MPV 11.0 (7.5-11.0) fL Gran % 80.6 H (36.0-66.0) % Immature Gran % (Auto) 2.2 H (0.00-0.4) % Nucleat RBC Rel Count 0.0 (0.00-0.1) % Eos # (Auto) 0.11 (0-0.5) x10^3/uL Immature Gran # (Auto) 0.37 H (0.00-0.03) x10^3u/L Absolute Lymphs (auto) 1.78 (1.0-4.6) x10^3/uL Absolute Monos (auto) 0.89 (0.0-1.3) x10^3/uL Absolute Nucleated RBC 0.00 (0.00-0.01) x10^3u/L Lymphocytes % 10.7 L (24.0-44.0) % Monocytes % 5.3 (0.0-12.0) % Eosinophils % 0.7 (0.00-5.0) % Basophils % 0.5 (0.0-0.4) % Absolute Granulocytes 13.45 H (1.4-6.9) x10^3/uL Basophils # 0.08 (0-0.4) x10^3/uL Sodium (137-145) mmol/L Potassium (3.5-5.1) mmol/L Chloride (98-107) mmol/L Carbon Dioxide (22-30) mmol/L Anion Gap (5-15) MEQ/L BUN (7-17) mg/dL Creatinine (0.52-1.04) mg/dL Estimated GFR ML/MIN Glucose (74-106) mg/dL POC Glucometer TNP 192 H Calcium (8.4-10.2) mg/dL Total Bilirubin (0.2-1.3) mg/dL AST (14-36) U/L ALT (0-35) U/L Alkaline Phosphatase (38-126) U/L Serum Total Protein (6.3-8.2) g/dL Albumin (3.5-5.0) g/dL Procalcitonin (0.030-0.080) ng/mL 04/05/23 04/05/23 04/05/23 Range/Units 04:26 04:30 06:32 WBC (4.0-10.5) x10^3/uL RBC (4.1-5.4) x10^6/uL Hgb (12.0-16.0) g/dL Hct (35-47) % MCV (78-100) fL MCH (26-32) pg MCHC (32-36) g/dL RDW (11.5-14.0) % Plt Count (150-450) x10^3/uL MPV (7.5-11.0) fL Gran % (36.0-66.0) % Immature Gran % (Auto) (0.00-0.4) % Nucleat RBC Rel Count (0.00-0.1) % Eos # (Auto) (0-0.5) x10^3/uL Immature Gran # (Auto) (0.00-0.03) x10^3u/L Absolute Lymphs (auto) (1.0-4.6) x10^3/uL Absolute Monos (auto) (0.0-1.3) x10^3/uL Absolute Nucleated RBC (0.00-0.01) x10^3u/L Lymphocytes % (24.0-44.0) % Monocytes % (0.0-12.0) % Eosinophils % (0.00-5.0) % Basophils % (0.0-0.4) % Absolute Granulocytes (1.4-6.9) x10^3/uL Basophils # (0-0.4) x10^3/uL Sodium 142 (137-145) mmol/L Potassium 3.8 (3.5-5.1) mmol/L Chloride 93 L (98-107) mmol/L Carbon Dioxide 40 H (22-30) mmol/L Anion Gap 12.5 (5-15) MEQ/L BUN 46 H (7-17) mg/dL Creatinine 1.21 H (0.52-1.04) mg/dL Estimated GFR 46.5 ML/MIN Glucose 77 (74-106) mg/dL POC Glucometer 79 Calcium 9.1 (8.4-10.2) mg/dL Total Bilirubin 0.60 (0.2-1.3) mg/dL AST 44 H (14-36) U/L ALT 40 H (0-35) U/L Alkaline Phosphatase 90 (38-126) U/L Serum Total Protein 7.9 (6.3-8.2) g/dL Albumin 3.6 (3.5-5.0) g/dL Procalcitonin 0.261 H (0.030-0.080) ng/mL 04/05/23 Range/Units 11:23 WBC (4.0-10.5) x10^3/uL RBC (4.1-5.4) x10^6/uL Hgb (12.0-16.0) g/dL Hct (35-47) % MCV (78-100) fL MCH (26-32) pg MCHC (32-36) g/dL RDW (11.5-14.0) % Plt Count (150-450) x10^3/uL MPV (7.5-11.0) fL Gran % (36.0-66.0) % Immature Gran % (Auto) (0.00-0.4) % Nucleat RBC Rel Count (0.00-0.1) % Eos # (Auto) (0-0.5) x10^3/uL Immature Gran # (Auto) (0.00-0.03) x10^3u/L Absolute Lymphs (auto) (1.0-4.6) x10^3/uL Absolute Monos (auto) (0.0-1.3) x10^3/uL Absolute Nucleated RBC (0.00-0.01) x10^3u/L Lymphocytes % (24.0-44.0) % Monocytes % (0.0-12.0) % Eosinophils % (0.00-5.0) % Basophils % (0.0-0.4) % Absolute Granulocytes (1.4-6.9) x10^3/uL Basophils # (0-0.4) x10^3/uL Sodium (137-145) mmol/L Potassium (3.5-5.1) mmol/L Chloride (98-107) mmol/L Carbon Dioxide (22-30) mmol/L Anion Gap (5-15) MEQ/L BUN (7-17) mg/dL Creatinine (0.52-1.04) mg/dL Estimated GFR ML/MIN Glucose (74-106) mg/dL POC Glucometer 181 H Calcium (8.4-10.2) mg/dL Total Bilirubin (0.2-1.3) mg/dL AST (14-36) U/L ALT (0-35) U/L Alkaline Phosphatase (38-126) U/L Serum Total Protein (6.3-8.2) g/dL Albumin (3.5-5.0) g/dL Procalcitonin (0.030-0.080) ng/mL Radiology Exams: Radiology Procedures Category Date Time Status CHEST 1 VIEW (PORTABLE) DAILY Exams 04/05/23 07:00 Completed Multi-Disciplinary Progress Notes: Multi-Disciplinary Progress Notes 04/05/23 09:35 Case Management Note by Makenna Griffin NO CHANGE IN DC PLANS AT THIS TIME Initialized on 04/05/23 09:35 - END OF NOTE 04/05/23 07:18 Respiratory Note by Chantell Gustafson PT'S O2 SAT ON ROOM AIR WHILE AT REST WAS 88%. PT WAS PLACED BACK ON 2LPM VIA NASAL CANNULA. O2 SAT INCREASED TO 92%. Initialized on 04/05/23 07:18 - END OF NOTE Assessment/Plan (1) Pneumonia Current Visit: Yes Status: Acute Qualifiers: Pneumonia type: due to unspecified organism Laterality: bilateral Lung location: unspecified part of lung Qualified Code(s): J18.9 - Pneumonia, unspecified organism Assessment & Plan: on rocephin, zithromax, (day #3) and nebs. Improving. Continue leukocytosis; recheck in a.m. I considered changing the antibiotic, but with her very numerous allergies that will be difficult. Could consider merrem if not improved in the morning. Code(s): J18.9 - PNEUMONIA, UNSPECIFIED ORGANISM (2) UTI (urinary tract infection) Current Visit: Yes Status: Acute Qualifiers: Urinary tract infection type: acute cystitis Hematuria presence: without hematuria Qualified Code(s): N30.00 - Acute cystitis without hematuria Assessment & Plan: Grew E. coli, susceptible to rocephin. Code(s): N39.0 - URINARY TRACT INFECTION, SITE NOT SPECIFIED (3) Diabetes mellitus Current Visit: Yes Status: Acute Qualifiers: Diabetes mellitus type: type 2 Diabetes mellitus halfway insulin use: unspecified halfway insulin use status Diabetes mellitus complication status: with kidney complications Diabetes mellitus complication detail: with chronic kidney disease Chronic kidney disease stage: stage 3 (moderate) Code(s): E11.9 - TYPE 2 DIABETES MELLITUS WITHOUT COMPLICATIONS (4) Acute respiratory failure with hypoxia Current Visit: Yes Status: Acute Assessment & Plan: improving Code(s): J96.01 - ACUTE RESPIRATORY FAILURE WITH HYPOXIA (5) Acute on chronic renal failure Current Visit: Yes Status: Acute Code(s): N17.9 - ACUTE KIDNEY FAILURE, UNSPECIFIED; N18.9 - CHRONIC KIDNEY DISEASE, UNSPECIFIED (6) Anemia Current Visit: Yes Status: Chronic Qualifiers: Anemia type: due to chronic kidney disease Chronic kidney disease stage: stage 3 (moderate) Code(s): D64.9 - ANEMIA, UNSPECIFIED (7) Thrombocytosis Current Visit: Yes Status: Acute (8) CO2 retention Current Visit: Yes Status: Acute Assessment & Plan: Pt was sitting up eating breakfast, in chair, looking well Code(s): E87.29 - OTHER ACIDOSIS (9) Elevated liver enzymes Current Visit: Yes Status: Acute Code(s): R74.8 - ABNORMAL LEVELS OF OTHER SERUM ENZYMES (10) HTN (hypertension) Current Visit: Yes Status: Chronic Qualifiers: Hypertension type: primary hypertension Qualified Code(s): I10 - Essential (primary) hypertension Code(s): I10 - ESSENTIAL (PRIMARY) HYPERTENSION (11) Atrial fibrillation Current Visit: Yes Status: Chronic Qualifiers: Atrial fibrillation type: longstanding persistent Qualified Code(s): I48.11 - Longstanding persistent atrial fibrillation Code(s): I48.91 - UNSPECIFIED ATRIAL FIBRILLATION
[2023-04-05] MEDS: HUMALOG SQ PRN ×2 (16:55→21:43)
[2023-04-05] MEDS ORDERED: PROVENTIL 2.5 MG/3 ML NEB IH SCH (19:00)
[2023-04-05] MEDS: MELATONIN PO PRN (21:35)
[2023-04-05] MEDS: ZYLOPRIM 300 MG PO SCH (21:40)
[2023-04-05] MEDS: ECOTRIN 81 MG PO SCH (21:40)
[2023-04-05] MEDS: Ambien 5 MG Tablet PO PRN (21:41)
[2023-04-05] MEDS: Zanaflex 4 MG PO SCH (21:46)
[2023-04-06] MEDS: DUONEB 0.5-3 MG/3 ml Neb IH SCH ×4 (02:45→18:58)
[2023-04-06] MEDS: PATIENT OWN MEDICATION IH SCH ×2 (07:17→19:00)
--- NOTE | 2023-04-06 07:27 | XRAY ---
Indication: Pneumonia. Comparison: One day earlier Portable chest again demonstrates bilateral mid to lower lung airspace disease stable to minimally worsened. Again no large effusion. Heart is now borderline enlarged.
[2023-04-06] MEDS: Imdur 30 MG PO SCH (08:04)
[2023-04-06] MEDS: HUMALOG SQ PRN ×4 (08:04→22:01)
[2023-04-06] MEDS: DEMADEX 20 MG PO SCH (08:59)
[2023-04-06] MEDS: NORVASC 5 MG PO SCH (08:59)
[2023-04-06] MEDS: ELIQUIS 2.5 MG TABLET PO SCH ×2 (08:59→21:57)
[2023-04-06] MEDS: Lantus Insulin SQ SCH (08:59)
[2023-04-06] MEDS: Flonase NASAL NS SCH ×2 (09:00→21:57)
[2023-04-06] MEDS: ROCEPHIN 1 Gm-D5w 50 ml Bag** 1 G/50 ML IVPB IV SCH (09:00)
[2023-04-06] MEDS: Lyrica 25 MG PO SCH ×2 (09:00→21:57)
[2023-04-06] MEDS: ULTRAM 50 MG PO PRN (09:00)
[2023-04-06] MEDS: Klor Con PO SCH (09:00)
[2023-04-06] MEDS: Cordarone 200 MG PO SCH (09:00)
[2023-04-06] MEDS: Aldactone 25 MG PO SCH (09:00)
[2023-04-06] MEDS: DELTASONE 20 MG PO SCH (09:00)
[2023-04-06] MEDS: Singulair 10 MG PO SCH (09:00)
--- NOTE | 2023-04-06 09:13 | PCM.NOTE ---
Date and Time: 04/06/23911 Subjective Assessment: patient still requiring 2L oxygen, swelling in feet. otherwise still coughing and short of breath Objective Exam General Appearance: no apparent distress Neurologic Exam: alert, oriented x 3 Respiratory Exam: crackles/rales (familia bases) Cardiovascular Exam: regular rate/rhythm, normal heart sounds Gastrointestinal/Abdomen Exam: soft, No tenderness, No mass Extremity Exam: normal inspection, normal range of motion, pedal edema, swelling OBJECTIVE DATA Vital Signs: Vital Signs - 24 hr Temp Pulse Resp BP Pulse Ox 04/06/23 08:34 75 18 95 04/06/23 07:14 96.9 F 84 16 148/83 92 L 04/06/23 03:52 97.6 F 74 21 174/72 94 L 04/05/23 23:40 97.8 F 80 20 149/67 94 L 04/05/23 22:25 82 16 94 L 04/05/23 19:18 98.0 F 82 24 183/74 93 L 04/05/23 18:55 83 18 94 L 04/05/23 16:00 98.7 F 88 20 182/79 90 L 04/05/23 14:35 81 22 93 L 04/05/23 11:30 98.6 F 87 18 153/65 91 L 04/05/23 10:55 71 22 94 L Pain Assessment - Last Documented Pain Intensity 6 Pain Scale Used 0-10 Pain Scale Intake and Output: Intake & Output 04/03/23 04/04/23 04/05/23 04/06/23 11:59 11:59 11:59 11:59 Intake Total 1440 1822 1240 1160 Output Total 800 Balance 1440 1822 1240 360 Weight 98.2 kg 99.1 kg 99.1 kg 99.1 kg Lab Results: Lab Results-Last 24 Hours 04/05/23 04/05/23 04/05/23 Range/Units 04:30 11:23 16:06 POC Glucometer 181 H 354 H (74 to 106) mg/dL Procalcitonin 0.261 H (0.030-0.080) ng/mL 04/05/23 04/06/23 Range/Units 21:03 06:47 POC Glucometer 331 H 153 H (74 to 106) mg/dL Procalcitonin (0.030-0.080) ng/mL Radiology Exams: Radiology Procedures Category Date Time Status CHEST 1 VIEW (PORTABLE) DAILY Exams 04/05/23 07:00 Completed Multi-Disciplinary Progress Notes: Multi-Disciplinary Progress Notes 04/05/23 09:35 Case Management Note by Makenna Griffin NO CHANGE IN DC PLANS AT THIS TIME Initialized on 04/05/23 09:35 - END OF NOTE Assessment/Plan (1) Pneumonia Current Visit: Yes Status: Acute Qualifiers: Pneumonia type: due to unspecified organism Laterality: bilateral Lung location: unspecified part of lung Qualified Code(s): J18.9 - Pneumonia, unspecified organism Assessment & Plan: continue rocephin and zithromax Code(s): J18.9 - PNEUMONIA, UNSPECIFIED ORGANISM (2) Acute respiratory failure with hypoxia Current Visit: Yes Status: Acute Assessment & Plan: wheezing resolved, reduce prednisone from 40mg to 20mg, this is likely contributing to her leukocytosis. start iv lasix 40mg q12 hrs for volume overload Code(s): J96.01 - ACUTE RESPIRATORY FAILURE WITH HYPOXIA
[2023-04-06] MEDS: Zithromax 500 MG/ 250 ML NaCl Premix 500 MG/250 ML IVPB IV SCH (09:43)
[2023-04-06] MEDS: Lasix 40 MG/4 ML IV SCH ×2 (09:43→21:57)
[2023-04-06] MEDS: Zanaflex 4 MG PO SCH (21:57)
[2023-04-06] MEDS: ZYLOPRIM 300 MG PO SCH (21:57)
[2023-04-06] MEDS: ECOTRIN 81 MG PO SCH (21:57)
[2023-04-06] MEDS: Ambien 5 MG Tablet PO PRN (22:01)
[2023-04-07 05:15] LABS: Absolute Neutrophil Ct (ANC) 11.99 x10^3/uL (1.4-6.9); BASOPHIL % 0.3 % (0.0-0.4); Basophil (Absolute #) 0.04 x10^3/uL (0-0.4); Eosinophil % 0.7 % (0.00-5.0); Hematocrit 34.7 % (35-47); IMMATURE GRAN # 0.35 x10^3u/L (0.00-0.03); IMMATURE GRAN % 2.4 % (0.00-0.4); Lymphocyte (Absolute #) 1.45 x10^3/uL (1.0-4.6); Lymphocytes % 9.9 % (24.0-44.0); Mean Corpuscular Hgb Concent. 31.7 g/dL (32-36); Monocyte (Absolute #) 0.79 x10^3/uL (0.0-1.3); Monocytes % 5.4 % (0.0-12.0); NUCLEATED RBC # 0.02 x10^3u/L (0.00-0.01); NUCLEATED RBC % 0.1 % (0.00-0.1); Neutrophil % 81.3 % (36.0-66.0); Platelet Count 418 x10^3/uL (150-450); Red Blood Count 4.08 x10^6/uL (4.1-5.4); Red Cell Distribution Width 15.6 % (11.5-14.0); White Blood Count 14.7 x10^3/uL (4.0-10.5)
[2023-04-07] MEDS: DUONEB 0.5-3 MG/3 ml Neb IH SCH ×3 (05:29→17:54)
[2023-04-07 05:41] LABS: ALBUMIN 3.5 g/dL (3.5-5.0); ANION GAP 12.2 MEQ/L (5-15); BILIRUBIN,TOTAL 0.5 mg/dL (0.2-1.3); Calcium 9.1 mg/dL (8.4-10.2); Creatinine 1 1.09 mg/dL (0.52-1.04); EST GLOMERULAR FILTRATION RATE 52.4 ML/MIN; MAGNESIUM 2.3 mg/dL (1.6-2.3); Potassium 4.1 mmol/L (3.5-5.1); Total Protein 7.6 g/dL (6.3-8.2)
[2023-04-07] MEDS: PATIENT OWN MEDICATION IH SCH ×2 (05:52→17:54)
[2023-04-07] MEDS: Imdur 30 MG PO SCH (07:54)
--- NOTE | 2023-04-07 08:40 | PCM.NOTE ---
Date and Time: 04/07/23 0839 Subjective Assessment: patient had good results from lasix yesterday, I/O reviewed, her swelling is improved, still requiring oxygen Objective Exam General Appearance: no apparent distress Neurologic Exam: alert, oriented x 3 Respiratory Exam: crackles/rales Cardiovascular Exam: regular rate/rhythm, normal heart sounds Gastrointestinal/Abdomen Exam: soft, No tenderness, No mass Extremity Exam: pedal edema, swelling OBJECTIVE DATA Vital Signs: Vital Signs - 24 hr Temp Pulse Resp BP Pulse Ox 04/07/23 07:05 96.3 F 73 20 150/65 04/07/23 05:29 64 20 96 04/07/23 03:44 97.0 F 71 20 149/69 94 L 04/06/23 23:36 97.5 F 70 21 164/72 93 L 04/06/23 19:39 97.8 F 80 22 180/78 93 L 04/06/23 19:01 68 16 97 04/06/23 15:32 98.0 F 82 18 149/69 95 04/06/23 11:09 97.1 F 82 16 140/67 89 L Pain Assessment - Last Documented Pain Intensity 0 Pain Scale Used 0-10 Pain Scale Intake and Output: Intake & Output 04/04/23 04/05/23 04/06/23 04/07/23 11:59 11:59 11:59 11:59 Intake Total 1822 1240 1160 1560 Output Total 800 5430 Balance 1822 1240 360 -3870 Weight 99.1 kg 99.1 kg 99.1 kg 99.1 kg Lab Results: Lab Results-Last 24 Hours 04/06/23 04/06/23 04/06/23 Range/Units 11:06 15:38 20:53 WBC (4.0-10.5) x10^3/uL RBC (4.1-5.4) x10^6/uL Hgb (12.0-16.0) g/dL Hct (35-47) % MCV (78-100) fL MCH (26-32) pg MCHC (32-36) g/dL RDW (11.5-14.0) % Plt Count (150-450) x10^3/uL MPV (7.5-11.0) fL Gran % (36.0-66.0) % Immature Gran % (Auto) (0.00-0.4) % Nucleat RBC Rel Count (0.00-0.1) % Eos # (Auto) (0-0.5) x10^3/uL Immature Gran # (Auto) (0.00-0.03) x10^3u/L Absolute Lymphs (auto) (1.0-4.6) x10^3/uL Absolute Monos (auto) (0.0-1.3) x10^3/uL Absolute Nucleated RBC (0.00-0.01) x10^3u/L Lymphocytes % (24.0-44.0) % Monocytes % (0.0-12.0) % Eosinophils % (0.00-5.0) % Basophils % (0.0-0.4) % Absolute Granulocytes (1.4-6.9) x10^3/uL Basophils # (0-0.4) x10^3/uL Sodium (137-145) mmol/L Potassium (3.5-5.1) mmol/L Chloride (98-107) mmol/L Carbon Dioxide (22-30) mmol/L Anion Gap (5-15) MEQ/L BUN (7-17) mg/dL Creatinine (0.52-1.04) mg/dL Estimated GFR ML/MIN Glucose (74-106) mg/dL POC Glucometer 182 H 404 H 287 H (74 to 106) mg/dL Calcium (8.4-10.2) mg/dL Magnesium (1.6-2.3) mg/dL Total Bilirubin (0.2-1.3) mg/dL AST (14-36) U/L ALT (0-35) U/L Alkaline Phosphatase (38-126) U/L Serum Total Protein (6.3-8.2) g/dL Albumin (3.5-5.0) g/dL 04/07/23 04/07/23 04/07/23 Range/Units 04:14 04:14 07:06 WBC 14.7 H (4.0-10.5) x10^3/uL RBC 4.08 L (4.1-5.4) x10^6/uL Hgb 11.0 L (12.0-16.0) g/dL Hct 34.7 L (35-47) % MCV 85.0 (78-100) fL MCH 27.0 (26-32) pg MCHC 31.7 L (32-36) g/dL RDW 15.6 H (11.5-14.0) % Plt Count 418 (150-450) x10^3/uL MPV 11.0 (7.5-11.0) fL Gran % 81.3 H (36.0-66.0) % Immature Gran % (Auto) 2.4 H (0.00-0.4) % Nucleat RBC Rel Count 0.1 (0.00-0.1) % Eos # (Auto) 0.10 (0-0.5) x10^3/uL Immature Gran # (Auto) 0.35 H (0.00-0.03) x10^3u/L Absolute Lymphs (auto) 1.45 (1.0-4.6) x10^3/uL Absolute Monos (auto) 0.79 (0.0-1.3) x10^3/uL Absolute Nucleated RBC 0.02 H (0.00-0.01) x10^3u/L Lymphocytes % 9.9 L (24.0-44.0) % Monocytes % 5.4 (0.0-12.0) % Eosinophils % 0.7 (0.00-5.0) % Basophils % 0.3 (0.0-0.4) % Absolute Granulocytes 11.99 H (1.4-6.9) x10^3/uL Basophils # 0.04 (0-0.4) x10^3/uL Sodium 138 (137-145) mmol/L Potassium 4.1 (3.5-5.1) mmol/L Chloride 92 L (98-107) mmol/L Carbon Dioxide 38 H (22-30) mmol/L Anion Gap 12.2 (5-15) MEQ/L BUN 49 H (7-17) mg/dL Creatinine 1.09 H (0.52-1.04) mg/dL Estimated GFR 52.4 ML/MIN Glucose 206 H (74-106) mg/dL POC Glucometer 154 H (74 to 106) mg/dL Calcium 9.1 (8.4-10.2) mg/dL Magnesium 2.3 (1.6-2.3) mg/dL Total Bilirubin 0.50 (0.2-1.3) mg/dL AST 39 H (14-36) U/L ALT 42 H (0-35) U/L Alkaline Phosphatase 97 (38-126) U/L Serum Total Protein 7.6 (6.3-8.2) g/dL Albumin 3.5 (3.5-5.0) g/dL Multi-Disciplinary Progress Notes: Multi-Disciplinary Progress Notes 04/06/23 09:53 Case Management Note by Makenna Griffin S/W PATIENT- SHE CONTINUES TO PLAN TO DC HOME WITH HER FAMILY TO HELP CARE FOR HER AT TIME OF DC Initialized on 04/06/23 09:53 - END OF NOTE Assessment/Plan (1) Pneumonia Current Visit: Yes Status: Acute Qualifiers: Pneumonia type: due to unspecified organism Laterality: bilateral Lung location: unspecified part of lung Qualified Code(s): J18.9 - Pneumonia, unspecified organism Assessment & Plan: improving clinically, continue rocephin and zithromax Code(s): J18.9 - PNEUMONIA, UNSPECIFIED ORGANISM (2) CHF (congestive heart failure) Current Visit: Yes Status: Acute Assessment & Plan: improving, continue IV lasix, hopeful to be able to discharge tomorrow Code(s): I50.9 - HEART FAILURE, UNSPECIFIED (3) Acute respiratory failure with hypoxia Current Visit: Yes Status: Acute Code(s): J96.01 - ACUTE RESPIRATORY FAILURE WITH HYPOXIA
[2023-04-07] MEDS: NORVASC 5 MG PO SCH (09:36)
[2023-04-07] MEDS: Cordarone 200 MG PO SCH (09:36)
[2023-04-07] MEDS: Lyrica 25 MG PO SCH ×2 (09:36→22:30)
[2023-04-07] MEDS: ELIQUIS 2.5 MG TABLET PO SCH ×2 (09:36→22:30)
[2023-04-07] MEDS: Singulair 10 MG PO SCH (09:36)
[2023-04-07] MEDS: DELTASONE 20 MG PO SCH (09:37)
[2023-04-07] MEDS: Lantus Insulin SQ SCH (09:37)
[2023-04-07] MEDS: Aldactone 25 MG PO SCH (09:37)
[2023-04-07] MEDS: Lasix 40 MG/4 ML IV SCH ×2 (09:37→22:30)
[2023-04-07] MEDS: Klor Con PO SCH (09:37)
[2023-04-07] MEDS: ROCEPHIN 1 Gm-D5w 50 ml Bag** 1 G/50 ML IVPB IV SCH (10:32)
[2023-04-07] MEDS: Flonase NASAL NS SCH ×2 (10:33→22:30)
[2023-04-07] MEDS: Zithromax 500 MG/ 250 ML NaCl Premix 500 MG/250 ML IVPB IV SCH (11:12)
[2023-04-07] MEDS: HUMALOG SQ PRN ×2 (16:49→22:39)
[2023-04-07] MEDS: Zanaflex 4 MG PO SCH (22:30)
[2023-04-07] MEDS: Ambien 5 MG Tablet PO PRN (22:30)
[2023-04-07] MEDS: ECOTRIN 81 MG PO SCH (22:30)
[2023-04-07] MEDS: ZYLOPRIM 300 MG PO SCH (22:30)
[2023-04-08] MEDS: DUONEB 0.5-3 MG/3 ml Neb IH SCH (04:57)
[2023-04-08] MEDS: PATIENT OWN MEDICATION IH SCH (04:58)
[2023-04-08 05:49] LABS: Absolute Neutrophil Ct (ANC) 12.01 x10^3/uL (1.4-6.9); BASOPHIL % 0.3 % (0.0-0.4); Basophil (Absolute #) 0.05 x10^3/uL (0-0.4); Eosinophil % 1.1 % (0.00-5.0); Eosinophil (Absolute #) 0.17 x10^3/uL (0-0.5); Hematocrit 36.1 % (35-47); Hemoglobin 11.3 g/dL (12.0-16.0); IMMATURE GRAN # 0.31 x10^3u/L (0.00-0.03); IMMATURE GRAN % 2.1 % (0.00-0.4); Lymphocyte (Absolute #) 1.56 x10^3/uL (1.0-4.6); Lymphocytes % 10.5 % (24.0-44.0); Mean Cell Volume 86.4 fL (78-100); Mean Corpuscular Hgb Concent. 31.3 g/dL (32-36); Monocyte (Absolute #) 0.76 x10^3/uL (0.0-1.3); Monocytes % 5.1 % (0.0-12.0); Neutrophil % 80.9 % (36.0-66.0); Platelet Count 390 x10^3/uL (150-450); Red Blood Count 4.18 x10^6/uL (4.1-5.4); White Blood Count 14.9 x10^3/uL (4.0-10.5)
[2023-04-08 06:20] LABS: ANION GAP 13.1 MEQ/L (5-15); BLOOD UREA NITROGEN 46 mg/dL (7-17); CHLORIDE 97 mmol/L (98-107); Calcium 9.1 mg/dL (8.4-10.2); Carbon Dioxide 33 mmol/L (22-30); Creatinine 1 0.95 mg/dL (0.52-1.04); EST GLOMERULAR FILTRATION RATE > 60.0 ML/MIN; Glucose 132 mg/dL (74-106); MAGNESIUM 2.4 mg/dL (1.6-2.3); Potassium 4.6 mmol/L (3.5-5.1); SODIUM 138 mmol/L (137-145)
[2023-04-08] MEDS: Imdur 30 MG PO SCH (08:02)
[2023-04-08 08:11] VITALS: BP 157/67; PULSE 83; O2SAT 92
--- NOTE | 2023-04-08 08:38 | PCM.DS ---
Discharge Summary Date of Admission: 04/04/23 05:00 Admitting Physician: KEVON HASTINGS Primary Care Provider: RON CRENSHAW Allergies Allergies cefaclor Allergy (Verified 04/01/23 11:58) ciprofloxacin [From Cipro] Allergy (Verified 04/01/23 11:58) gabapentin [From Neurontin] Allergy (Verified 04/01/23 11:58) glipizide Allergy (Verified 04/01/23 11:58) guaifenesin [From Robitussin] Allergy (Verified 04/01/23 11:58) hydrocodone Allergy (Verified 04/01/23 11:58) lisinopril Allergy (Verified 04/01/23 11:58) lovastatin Allergy (Verified 04/01/23 11:58) metoprolol Allergy (Verified 04/01/23 11:58) naproxen [From Aleve] Allergy (Verified 04/01/23 11:58) nifedipine [From Procardia] Allergy (Verified 04/01/23 11:58) paroxetine Allergy (Verified 04/01/23 11:58) Penicillins Allergy (Verified 04/01/23 11:58) procaine [From Novocain] Allergy (Verified 04/01/23 11:58) sulfacetamide Allergy (Verified 04/01/23 11:58) tetracycline Allergy (Verified 04/01/23 11:58) theophylline Allergy (Verified 04/01/23 11:58) ticagrelor [From Brilinta] Allergy (Verified 04/01/23 11:58) azithromycin [From Zithromax] Adverse Reaction (Mild, Verified 04/07/23 11:01) Nausea not true allergy albuterol Adverse Reaction (Verified 04/01/23 11:58) Hospital Summary - Hospital Course Hospital Course: patient was admitted with pneumonia and chf exacerbation, treated with antibiotics and diuresed well. lungs are clear and she appears euvolemic today, still requiring 2L oxygen so will be qualified for oxygen - Vitals & Intake/Output Vital Signs: Vital Signs Temperature 96.5 F 04/08/23 08:00 Pulse Rate 83 04/08/23 08:00 Respiratory Rate 20 04/08/23 08:00 Blood Pressure 157/67 04/08/23 08:00 O2 Sat by Pulse Oximetry 92 L 04/08/23 08:00 Intake & Output: Intake & Output 04/05/23 04/06/23 04/07/23 04/08/23 11:59 11:59 11:59 11:59 Intake Total 1240 1160 1560 720 Output Total 800 5430 2100 Balance 1240 080 -4205 -1380 Weight 99.1 kg 99.1 kg 99.1 kg 98.9 kg - Lab Result Diagrams: 04/08/23 04:47 04/08/23 04:47 Lab Results-Last 24 Hrs: Lab Results-Last 24 Hours 04/07/23 04/07/23 04/07/23 Range/Units 12:06 16:18 21:32 WBC (4.0-10.5) x10^3/uL RBC (4.1-5.4) x10^6/uL Hgb (12.0-16.0) g/dL Hct (35-47) % MCV (78-100) fL MCH (26-32) pg MCHC (32-36) g/dL RDW (11.5-14.0) % Plt Count (150-450) x10^3/uL MPV (7.5-11.0) fL Gran % (36.0-66.0) % Immature Gran % (Auto) (0.00-0.4) % Nucleat RBC Rel Count (0.00-0.1) % Eos # (Auto) (0-0.5) x10^3/uL Immature Gran # (Auto) (0.00-0.03) x10^3u/L Absolute Lymphs (auto) (1.0-4.6) x10^3/uL Absolute Monos (auto) (0.0-1.3) x10^3/uL Absolute Nucleated RBC (0.00-0.01) x10^3u/L Lymphocytes % (24.0-44.0) % Monocytes % (0.0-12.0) % Eosinophils % (0.00-5.0) % Basophils % (0.0-0.4) % Absolute Granulocytes (1.4-6.9) x10^3/uL Basophils # (0-0.4) x10^3/uL Sodium (137-145) mmol/L Potassium (3.5-5.1) mmol/L Chloride (98-107) mmol/L Carbon Dioxide (22-30) mmol/L Anion Gap (5-15) MEQ/L BUN (7-17) mg/dL Creatinine (0.52-1.04) mg/dL Estimated GFR ML/MIN Glucose (74-106) mg/dL POC Glucometer 138 H 275 H 265 H (74 to 106) mg/dL Calcium (8.4-10.2) mg/dL Magnesium (1.6-2.3) mg/dL 04/08/23 04/08/23 04/08/23 Range/Units 04:47 04:47 08:00 WBC 14.9 H (4.0-10.5) x10^3/uL RBC 4.18 (4.1-5.4) x10^6/uL Hgb 11.3 L (12.0-16.0) g/dL Hct 36.1 (35-47) % MCV 86.4 (78-100) fL MCH 27.0 (26-32) pg MCHC 31.3 L (32-36) g/dL RDW 16.0 H (11.5-14.0) % Plt Count 390 (150-450) x10^3/uL MPV 11.0 (7.5-11.0) fL Gran % 80.9 H (36.0-66.0) % Immature Gran % (Auto) 2.1 H (0.00-0.4) % Nucleat RBC Rel Count 0.0 (0.00-0.1) % Eos # (Auto) 0.17 (0-0.5) x10^3/uL Immature Gran # (Auto) 0.31 H (0.00-0.03) x10^3u/L Absolute Lymphs (auto) 1.56 (1.0-4.6) x10^3/uL Absolute Monos (auto) 0.76 (0.0-1.3) x10^3/uL Absolute Nucleated RBC 0.00 (0.00-0.01) x10^3u/L Lymphocytes % 10.5 L (24.0-44.0) % Monocytes % 5.1 (0.0-12.0) % Eosinophils % 1.1 (0.00-5.0) % Basophils % 0.3 (0.0-0.4) % Absolute Granulocytes 12.01 H (1.4-6.9) x10^3/uL Basophils # 0.05 (0-0.4) x10^3/uL Sodium 138 (137-145) mmol/L Potassium 4.6 (3.5-5.1) mmol/L Chloride 97 L (98-107) mmol/L Carbon Dioxide 33 H (22-30) mmol/L Anion Gap 13.1 (5-15) MEQ/L BUN 46 H (7-17) mg/dL Creatinine 0.95 (0.52-1.04) mg/dL Estimated GFR > 60.0 ML/MIN Glucose 132 H (74-106) mg/dL POC Glucometer 115 H (74 to 106) mg/dL Calcium 9.1 (8.4-10.2) mg/dL Magnesium 2.4 H (1.6-2.3) mg/dL Micro Results-Entire Visit: Microbiology 04/01/23 11:25 Aerobic Organism ID Result 1 - Final Sputum - Expectorant Not Reportable Aerobic Organism ID Result 2 - Final Not Reportable Aerobic Organism ID Result 3 - Final Not Reportable Aerobic Organism ID Result 4 - Final Not Reportable Aerobic Bacterial Sensitivity - Final Not Reportable 04/01/23 11:25 Gram Stain - Final Sputum - Expectorant Sputum Culture - Preliminary ADDITIONAL TESTING IS REQUIRED TO OBTAIN ID AND SENSITIVITY. SPECIMEN HAS BEEN SENT TO REFERENCE LAB, WITH FINAL RESULT EXPECTED WITHIN 96 HOURS. 04/01/23 11:17 Blood Culture - Final Blood NO GROWTH 04/01/23 11:15 Blood Culture - Final Blood NO GROWTH 04/01/23 11:25 Urine Culture - Final Clean Catch Midstream Escherichia Coli Accuchecks Date 04/08/23 Date 04/07/23 Date 04/07/23 Time 08:06 Time 16:49 Time 12:14 - Procedures and Test Procedures and Tests throughout Hospitalization: Therapy Orders & Screens 04/01/23 11:10 Respiratory Therapy Assessment DAILY Comment: 04/01/23 22:27 Oxygen Nasal Cannula 3 lpm Comment: Diagnosis: PNEUMONIA, COPD Respiratory Therapy Assessment DAILY Comment: Diagnosis: PNEUMONIA, COPD 04/02/23 10:58 Flutter Therapy UD Comment: Diagnosis: PNEUMONIA, COPD 04/02/23 19:00 Respiratory MDI BID Comment: PT'S OWN FLOVENT 2 PUFFS BID Diagnosis: PNEUMONIA, COPD Discharge Exam General Appearance: no apparent distress Neurologic Exam: alert, oriented x 3 Respiratory Exam: lungs clear, No respiratory distress, No rhonchi, No wheezing Cardiovascular Exam: regular rate/rhythm, normal heart sounds Gastrointestinal/Abdomen Exam: soft, No tenderness, No mass Extremity Exam: normal inspection, normal range of motion Skin Exam: normal color, warm, dry Final Diagnosis/Problem List - Final Discharge Diagnosis/Problem (1) Pneumonia Current Visit: Yes Status: Acute Assessment & Plan: has been tolerating rocephin and zithromax with no issues, has been on abx for the last 7 days here so, will discharge on 5 more days of cefdinir since she is tolerating rocephin, no further zithromax is needed Code(s): J18.9 - PNEUMONIA, UNSPECIFIED ORGANISM (2) CHF (congestive heart failure) Current Visit: Yes Status: Acute Assessment & Plan: resume home meds Code(s): I50.9 - HEART FAILURE, UNSPECIFIED (3) Acute respiratory failure with hypoxia Current Visit: Yes Status: Acute Assessment & Plan: qualify for oxygen, likely a chronic component Code(s): J96.01 - ACUTE RESPIRATORY FAILURE WITH HYPOXIA - Discharge Disposition: Home, Self-Care Condition: Stable Prescriptions: New Cefdinir 300 mg PO BID #10 cap Continue Pregabalin 25 mg [Lyrica 25 MG] 25 mg PO BID Nitroglycerin [Nitromist] 1 spray INTRANASAL DAILY PRN PRN PRN Reason: Chest Pain Montelukast Sodium 10 mg [Singulair 10 MG] 10 mg PO DAILY Isosorbide Dinitrate 30 mg PO BREAKFAST Insulin Detemir [Levemir Flexpen] 45 units SQ BID Empagliflozin [Jardiance] 10 mg PO DAILY Cyclosporine [Restasis Multidose] 1 drop OP BID Apixaban [Eliquis] 5 mg PO BID Amlodipine Besylate [Norvasc] 10 mg PO DAILY Amiodarone HCl 200 mg [Cordarone 200 MG] 200 mg PO DAILY Allopurinol 300 mg [Zyloprim 300 mg] 300 mg PO HS Umeclidinium Brm/Vilanterol Tr [Anoro Ellipta 62.5-25 Mcg INH] 1 puff IH DAILY Fenofibric Acid 35 mg PO HS Potassium Chloride 10 meq PO DAILY Tramadol HCl 50 mg [Ultram 50 mg] 50 mg PO Q4-6HPRN PRN PRN Reason: Pain Albuterol Sulfate [Proair Respiclick] 1 inh INTRANASAL DAILY Semaglutide [Ozempic] 0.5 mg SQ WEEKLY Tizanidine HCl 4 mg [Zanaflex 4 MG] 4 mg PO HS Spironolactone 25 mg [Aldactone 25 MG] 25 mg PO DAILY Torsemide 20 mg [Demadex 20 mg] 60 mg PO DAILY Aspirin EC 81 mg [Ecotrin 81 mg] 81 mg PO HS Insulin Lispro [Humalog] 20 unit TID Fluticasone Propionate [Flonase Allergy Relief] 50 mcg INTRANASAL BID Follow up with: RON CRENSHAW [employer]ACH[employer] WORK[employer] [Primary Care Provider] -
[2023-04-08] MEDS: Cordarone 200 MG PO SCH (09:10)
[2023-04-08] MEDS: Lasix 40 MG/4 ML IV SCH (09:11)
[2023-04-08] MEDS: Lyrica 25 MG PO SCH (09:11)
[2023-04-08] MEDS: DELTASONE 20 MG PO SCH (09:11)
[2023-04-08] MEDS: Singulair 10 MG PO SCH (09:11)
[2023-04-08] MEDS: Klor Con PO SCH (09:11)
[2023-04-08] MEDS: ELIQUIS 2.5 MG TABLET PO SCH (09:11)
[2023-04-08] MEDS: Aldactone 25 MG PO SCH (09:11)
[2023-04-08] MEDS: NORVASC 5 MG PO SCH (09:11)
[2023-04-08] MEDS: Zithromax 500 MG/ 250 ML NaCl Premix 500 MG/250 ML IVPB IV SCH (09:12)
[2023-04-08] MEDS: Flonase NASAL NS SCH (09:31)
[2023-04-08] MEDS: Lantus Insulin SQ SCH (09:31)
== END 2023-04-08 10:21 | disposition home or self-care (01) | DRG 193 ==
LOC: ED 10:28 → MED SURG 13:50 → OBSVTOIN 04-04 05:00
PROVIDERS: ADMIT Family Medicine; ATTEND Family Medicine
DX: J18.9 Pneumonia, unspecified organism (principal); J96.01 Acute respiratory failure with hypoxia; I13.0 Hypertensive heart and chronic kidney disease with heart failure and stage 1 through stage 4 chronic kidney disease, or unspecified chronic kidney disease; N39.0 Urinary tract infection, site not specified; E87.29 Other acidosis; I50.9 Heart failure, unspecified; N18.30 Chronic kidney disease, stage 3 unspecified; I25.10 Atherosclerotic heart disease of native coronary artery without angina pectoris; E78.5 Hyperlipidemia, unspecified; Z85.41 Personal history of malignant neoplasm of cervix uteri; E11.22 Type 2 diabetes mellitus with diabetic chronic kidney disease; D64.9 Anemia, unspecified; D75.839 Thrombocytosis, unspecified; R74.8 Abnormal levels of other serum enzymes; I48.91 Unspecified atrial fibrillation; Z20.828 Contact with and (suspected) exposure to other viral communicable diseases; Z79.899 Other long term (current) drug therapy; Z79.01 Long term (current) use of anticoagulants
CPT/HCPCS: 0241U; 36415; 71045; 80047; 80048; 80053; 81001; 82947; 83036; 83605; 83735; 84145; 84484; 85025; 85027; 87040; 87070; 87077; 87086; 87186; 87651; 93005; 94640; 94667; 94668; 94760; 96365; 96374; 96375; 99285; G0378; J0456; J0696; J1817; J1940; J2405; J2930; J7609; A9270-GY

== ENCOUNTER 2023-12-27 09:06 | Observation (INO) | payer MEDICARE, SELFPAY ==
--- NOTE | 2023-12-27 09:31 | ERPHSYRPT ---
- History of Present Illness Time Seen by Provider: 12/27/23 09:26 Source: patient Exam Limitations: no limitations Physician History: 73-year-old female history of COPD CHF presents to our ED via EMS for evaluation of shortness of breath. Patient states her symptoms started approximately 3 days ago. Symptoms have been progressive. Patient arrived with oxygen via britt al cannula. Patient states she does not have an oxygen requirement at home normally she functions on room air oxygen. No associated chest pain. No nausea vomiting or diaphoresis. Symptoms are moderate in intensity. Activities worsen her symptoms. Symptoms improved with rest. Patient voices no other complaints or concerns at this time. Portions of this note were created with voice recognition technology. There may be grammatical, spelling, punctuation or sound alike errors Timing/Duration: day(s) (3 days) Activities at Onset: activity Severity of Dyspnea-Max: moderate Severity of Dyspnea-Current: mild Possible Cause: occasional episodes Modifying Factors: Improves With: albuterol nebulizer Associated Symptoms: cough, wheezing, ankle swelling Allergies/Adverse Reactions: cefaclor Allergy (Verified 12/27/23 09:13) ciprofloxacin [From Cipro] Allergy (Verified 12/27/23 09:13) gabapentin [From Neurontin] Allergy (Verified 12/27/23 09:13) glipizide Allergy (Verified 12/27/23 09:13) guaifenesin [From Robitussin] Allergy (Verified 12/27/23 09:13) hydrocodone Allergy (Verified 12/27/23 09:13) lisinopril Allergy (Verified 12/27/23 09:13) lovastatin Allergy (Verified 12/27/23 09:13) metoprolol Allergy (Verified 12/27/23 09:13) naproxen [From Aleve] Allergy (Verified 12/27/23 09:13) nifedipine [From Procardia] Allergy (Verified 12/27/23 09:13) paroxetine Allergy (Verified 12/27/23 09:13) Penicillins Allergy (Verified 12/27/23 09:13) procaine [From Novocain] Allergy (Verified 12/27/23 09:13) sulfacetamide Allergy (Verified 12/27/23 09:13) tetracycline Allergy (Verified 12/27/23 09:13) theophylline Allergy (Verified 12/27/23 09:13) ticagrelor [From Brilinta] Allergy (Verified 12/27/23 09:13) azithromycin [From Zithromax] Adverse Reaction (Mild, Verified 12/27/23 09:13) Nausea not true allergy Home Medications: Albuterol Sulfate [Proair Respiclick] 1 inh INTRANASAL DAILY 04/01/23 [History] Allopurinol 300 mg [Zyloprim 300 mg] 300 mg PO HS 04/01/23 [History] Amiodarone HCl 200 mg [Cordarone 200 MG] 200 mg PO DAILY 04/01/23 [History] Amlodipine Besylate [Norvasc] 10 mg PO DAILY 04/01/23 [History] Apixaban [Eliquis] 5 mg PO BID 04/01/23 [History] Aspirin EC 81 mg [Ecotrin 81 mg] 81 mg PO HS 04/01/23 [History] Cyclosporine [Restasis Multidose] 1 drop OP BID 04/01/23 [History] Empagliflozin [Jardiance] 10 mg PO DAILY 04/01/23 [History] Fenofibric Acid 35 mg PO HS 04/01/23 [History] Fluticasone Propionate [Flonase Allergy Relief] 50 mcg INTRANASAL BID 04/01/23 [History] Insulin Detemir [Levemir Flexpen] 45 units SQ BID 04/01/23 [History] Insulin Lispro [Humalog] 20 unit TID 04/01/23 [History] Isosorbide Dinitrate 30 mg PO BREAKFAST 04/01/23 [History] Montelukast Sodium 10 mg [Singulair 10 MG] 10 mg PO DAILY 04/01/23 [History] Potassium Chloride 10 meq PO DAILY 04/01/23 [History] Pregabalin 25 mg [Lyrica 25 MG] 25 mg PO BID 04/01/23 [History] Semaglutide [Ozempic] 0.5 mg SQ WEEKLY 04/01/23 [History] Spironolactone 25 mg [Aldactone 25 MG] 25 mg PO DAILY 04/01/23 [History] Tizanidine HCl 4 mg [Zanaflex 4 MG] 4 mg PO HS 04/01/23 [History] Torsemide 20 mg [Demadex 20 mg] 60 mg PO DAILY 04/01/23 [History] Tramadol HCl 50 mg [Ultram 50 mg] 50 mg PO Q4-6HPRN PRN 04/01/23 [History] Melatonin 1 tab PO HS 12/27/23 [History] Metoprolol Succinate 50 mg [Toprol Xl 50 MG] 1 tab PO HS 12/27/23 [History] Hx Tetanus, Diphtheria Vaccination/Date Given: No Hx Influenza Vaccination/Date Given: No Hx Pneumococcal Vaccination/Date Given: No Travel Risk - Vaccine Status Have you recieved a Covid-19 vaccination: Yes [employer]: Moderna - Vaccination Dates Date of 2cond Vaccination (if applicable): 2020 Dates if Unknown: 2021 - Review of Systems Constitutional: No Symptoms, No Fever, No Chills Eyes: No Symptoms Ears, Nose, & Throat: No Symptoms Respiratory: No Symptoms, No Cough, No Dyspnea Cardiac: No Symptoms, No Chest Pain, No Edema, No Syncope Abdominal/Gastrointestinal: No Symptoms, No Abdominal Pain, No Nausea, No Vomiting, No Diarrhea Genitourinary Symptoms: No Symptoms, No Dysuria Musculoskeletal: No Symptoms, No Back Pain, No Neck Pain Skin: No Symptoms, No Rash Neurological: No Symptoms, No Dizziness, No Focal Weakness, No Sensory Changes Psychological: No Symptoms Endocrine: No Symptoms Hematologic/Lymphatic: No Symptoms Immunological/Allergic: No Symptoms All Other Systems: Reviewed and Negative - Past Medical History Pertinent Past Medical History: Yes ENT History: Cataracts Cardiac History: Coronary Artery Disease, High Cholesterol, Hypertension, Myocardial Infarction (MS) Respiratory History: CHF, COPD Endocrine Medical History: Diabetes Type II Musculoskeletal History: Arthritis GI Medical History: GERD History: Renal Disease Psycho-Social History: No Pertinent History Female Reproductive Disorders: No Pertinent History, Cervical Cancer Other Medical History: neuropathy - Past Surgical History Past Surgical History: Yes Neuro Surgical History: No Pertinent History Cardiac: Cardiac Catheterization, Cardiac Stent Respiratory: No Pertinent History Gastrointestinal: Cholecystectomy Genitourinary: No Pertinent History Musculoskeletal: No Pertinent History Female Surgical History: Other Other Surgical History: cervic ca , loop sx on cervix - Social History Smoking Status: Former smoker Exposure to second hand smoke: No Drug Use: none Patient Lives Alone: No - Nursing Vital Signs Nursing Vital Signs: Initial Vital Signs Respiratory Rate 26 H 12/27/23 09:11 Blood Pressure 174/95 12/27/23 09:11 O2 Sat by Pulse Oximetry 91 L 12/27/23 09:11 Pain Scale Pain Intensity 0 - Physical Exam General Appearance: no apparent distress, alert Eye Exam: PERRL/EOMI Neck Exam: normal inspection, supple Respiratory Exam: diminished breath sounds, rhonchi, wheezing Cardiovascular/Chest Exam: normal heart sounds, regular rate/rhythm Abdominal/Gastrointestinal Exam: soft, No tenderness, No distention, No mass Extremity Exam: non-tender, normal range of motion, normal inspection, no calf tenderness, no pedal edema Neurologic Exam: alert, oriented x 3, cooperative, illuminator II-XII nml as tested, sensation nml, No motor deficits Skin Exam: normal color, warm, No dry Lymphatic Exam: No adenopathy SpO2 Interpretation: normal O2 Delivery: Room Air - Course Nursing assessment & vital signs reviewed: Yes - CT Exams Chest CT Interpretation: Tele-radiologist Report (Bilateral interstitial opacities) Ordered Tests: Active Orders 24 hr Category Date Time Status Fitness Director STAT Care 12/27/23 09:23 Active EKG-ER Only STAT Care 12/27/23 09:23 Active IV Insertion STAT Care 12/27/23 09:23 Active Pulse Oximetry (ED) STAT Care 12/27/23 09:23 Active CHEST 1 VIEW (PORTABLE) Stat Exams 12/27/23 09:23 Completed BLOOD CULTURE Stat Lab 12/27/23 10:50 Received CBC W DIFF Stat Lab 12/27/23 09:30 Completed CMP Stat Lab 12/27/23 09:30 Completed NT PRO BNPII Stat Lab 12/27/23 09:30 Completed TROPONIN Q4H Lab 12/27/23 09:30 Completed TROPONIN Q4H Lab 12/27/23 13:30 Ordered TROPONIN Q4H Lab 12/27/23 17:30 Ordered Respiratory Therapy Assessment DAILY RT 12/27/23 10:25 Active Transfer Order Routine Transfer 12/27/23 Ordered Medication Summary Discontinued Medications Generic Name Dose Route Start Last Admin Trade Name Freq PRN Reason Stop Dose Admin Albuterol/Ipratropium 3 ml 12/27/23 10:07 12/27/23 10:21 Ipratropium/Albuterol Sulfate 3 Ml Ampul.Neb IH 12/27/23 10:08 3 ml STAT ONE Administration Albuterol/Ipratropium Confirm 12/27/23 10:15 Ipratropium/Albuterol Sulfate 3 Ml Ampul.Neb Administered 12/27/23 10:16 Dose 3 ml IH .STK-MED ONE Methylprednisolone Sodium 0 mg 12/27/23 09:32 12/27/23 10:14 Succinate 125 mg/ Sterile IV 12/27/23 09:33 125 mg Water 2 ml STAT ONE Administration Methylprednisolone Sodium Succinate Confirm 12/27/23 10:13 Methylprednis Sod Succ 125 Mg/2 Ml Vial Administered 12/27/23 10:14 Dose 125 mg .ROUTE .STK-MED ONE Sterile Water Confirm 12/27/23 10:13 Water For Injection,Sterile 10 Ml Vial Administered 12/27/23 10:14 Dose 10 ml IJ .STK-MED ONE Lab/Rad Data: Laboratory Result Diagrams 12/27/23 09:30 12/27/23 09:30 Laboratory Results 12/27/23 12/27/23 12/27/23 Range/Units 09:30 09:30 09:30 WBC (4.0-10.5) x10^3/uL RBC (4.1-5.4) x10^6/uL Hgb (12.0-16.0) g/dL Hct (35-47) % MCV (78-100) fL MCH (26-32) pg MCHC (32-36) g/dL RDW (11.5-14.0) % Plt Count (150-450) x10^3/uL MPV (7.5-11.0) fL Gran % (36.0-66.0) % Immature Gran % (Auto) (0.00-0.4) % Nucleat RBC Rel Count (0.00-0.1) % Eos # (Auto) (0-0.5) x10^3/uL Immature Gran # (Auto) (0.00-0.03) x10^3u/L Absolute Lymphs (auto) (1.0-4.6) x10^3/uL Absolute Monos (auto) (0.0-1.3) x10^3/uL Absolute Nucleated RBC (0.00-0.01) x10^3u/L Lymphocytes % (24.0-44.0) % Monocytes % (0.0-12.0) % Eosinophils % (0.00-5.0) % Basophils % (0.0-0.4) % Absolute Granulocytes (1.4-6.9) x10^3/uL Basophils # (0-0.4) x10^3/uL Sodium 140 (137-145) mmol/L Potassium 3.9 (3.5-5.1) mmol/L Chloride 106 (98-107) mmol/L Carbon Dioxide 23 (22-30) mmol/L Anion Gap 14.1 (5-15) MEQ/L BUN 18 H (7-17) mg/dL Creatinine 0.84 (0.52-1.04) mg/dL Estimated GFR 73.8 ML/MIN Glucose 137 H (74-106) mg/dL Calcium 9.6 (8.4-10.2) mg/dL Total Bilirubin 0.90 (0.2-1.3) mg/dL AST 40 H (14-36) U/L ALT 24 (0-35) U/L Alkaline Phosphatase 71 (38-126) U/L Troponin I 0.025 (0.000-0.034) ng/mL NT-Pro-B Natriuret Pep 684 (<300) pg/mL Serum Total Protein 8.4 H (6.3-8.2) g/dL Albumin 4.5 (3.5-5.0) g/dL Influenza Type A Ag NEGATIVE (NEGATIVE) Influenza Type B Ag NEGATIVE (NEGATIVE) RSV (PCR) NEGATIVE (NEGATIVE) SARS-CoV-2 (PCR) NEGATIVE (NEGATIVE) 12/27/23 Range/Units 09:30 WBC 14.5 H (4.0-10.5) x10^3/uL RBC 4.60 (4.1-5.4) x10^6/uL Hgb 13.0 (12.0-16.0) g/dL Hct 42.6 (35-47) % MCV 92.6 (78-100) fL MCH 28.3 (26-32) pg MCHC 30.5 L (32-36) g/dL RDW 16.2 H (11.5-14.0) % Plt Count 369 (150-450) x10^3/uL MPV 11.4 H (7.5-11.0) fL Gran % 73.2 H (36.0-66.0) % Immature Gran % (Auto) 0.3 (0.00-0.4) % Nucleat RBC Rel Count 0.0 (0.00-0.1) % Eos # (Auto) 0.41 (0-0.5) x10^3/uL Immature Gran # (Auto) 0.05 H (0.00-0.03) x10^3u/L Absolute Lymphs (auto) 2.28 (1.0-4.6) x10^3/uL Absolute Monos (auto) 1.01 (0.0-1.3) x10^3/uL Absolute Nucleated RBC 0.00 (0.00-0.01) x10^3u/L Lymphocytes % 15.8 L (24.0-44.0) % Monocytes % 7.0 (0.0-12.0) % Eosinophils % 2.8 (0.00-5.0) % Basophils % 0.9 (0.0-0.4) % Absolute Granulocytes 10.57 H (1.4-6.9) x10^3/uL Basophils # 0.13 (0-0.4) x10^3/uL Sodium (137-145) mmol/L Potassium (3.5-5.1) mmol/L Chloride (98-107) mmol/L Carbon Dioxide (22-30) mmol/L Anion Gap (5-15) MEQ/L BUN (7-17) mg/dL Creatinine (0.52-1.04) mg/dL Estimated GFR ML/MIN Glucose (74-106) mg/dL Calcium (8.4-10.2) mg/dL Total Bilirubin (0.2-1.3) mg/dL AST (14-36) U/L ALT (0-35) U/L Alkaline Phosphatase (38-126) U/L Troponin I (0.000-0.034) ng/mL NT-Pro-B Natriuret Pep (<300) pg/mL Serum Total Protein (6.3-8.2) g/dL Albumin (3.5-5.0) g/dL Influenza Type A Ag (NEGATIVE) Influenza Type B Ag (NEGATIVE) RSV (PCR) (NEGATIVE) SARS-CoV-2 (PCR) (NEGATIVE) - Progress Progress: improved Air Movement: good Progress Note: 73-year-old female presents to our ED with shortness of breath. Physical exam reveals rhonchi wheezing diminished breath sounds. Patient was hypoxic requiring 2 L nasal cannula oxygen. She normally does not require oxygen at home. Patient on Eliquis for A-fib. Initial troponin negative. CBC reveals leukocytosis of 14. Chest x-ray reveals bilateral interstitial opacities. Patient also experiencing COPD exacerbation possibly exacerbated by her pneumonia. Patient received Solu-Medrol nebulizer treatments. Patient has multiple medicine allergies. Azithromycin initiated patient will require hospitalization for further evaluation and treatment. Case discussed with Dr. Mcpherson who accepts admission at 11 AM. Portions of this note were created with voice recognition technology. There may be grammatical, spelling, punctuation or sound alike errors Complexity problem addressed is moderate acute located No critical care time Complex of data reviewed and analyzed is extensive. Test ordered test reviewed. Results analyzed and correlated clinically with history and physical examination. Management discussed with hospitalist who accepts admission to observation. Risk of complication and or risk of morbidity/mortality of patient management is high. Patient requires hospitalization for further evaluation and treatment. Vital stable. Time spent admit patient is approximately 30 minutes. Plan of care established for shared decision making. No social determinants of health present impede follow-up. Portions of this note were created with voice recognition technology. There may be grammatical, spelling, punctuation or sound alike errors 12/27/23 11:17 Blood Culture(s) Obtained: Yes Antibiotics given: Yes Discussed with : Lindsey (Case discussed with Dr. Gibson at 11 AM) Will see patient in: hospital (observation) Counseled pt/family regarding: lab results, diagnosis, rad results - Departure Departure Disposition: Observation Clinical Impression: Bilateral interstitial opacities, Shortness of breath, Leukocytosis, COPD e xacerbation, Hypoxia, Pneumonia Condition: Stable Critical Care Time: No Referrals: KEVON HASTINGS MD [Primary Care Provider] - Follow up/PCP as directed Instructions: Chronic Obstructive Pulmonary Disease
[2023-12-27] MEDS ORDERED: solu-MEDROL 125 MG, Sterile H2O 10 ml 2 ML IV ONE ×2 (09:32)
[2023-12-27 09:42] LABS: Absolute Neutrophil Ct (ANC) 10.57 x10^3/uL (1.4-6.9); BASOPHIL % 0.9 % (0.0-0.4); Basophil (Absolute #) 0.13 x10^3/uL (0-0.4); Eosinophil % 2.8 % (0.00-5.0); Eosinophil (Absolute #) 0.41 x10^3/uL (0-0.5); Hematocrit 42.6 % (35-47); IMMATURE GRAN # 0.05 x10^3u/L (0.00-0.03); IMMATURE GRAN % 0.3 % (0.00-0.4); Lymphocyte (Absolute #) 2.28 x10^3/uL (1.0-4.6); Lymphocytes % 15.8 % (24.0-44.0); Mean Cell Volume 92.6 fL (78-100); Mean Corpuscular Hemoglobin 28.3 pg (26-32); Mean Corpuscular Hgb Concent. 30.5 g/dL (32-36); Mean Platelet Volume 11.4 fL (7.5-11.0); Monocyte (Absolute #) 1.01 x10^3/uL (0.0-1.3); Neutrophil % 73.2 % (36.0-66.0); Platelet Count 369 x10^3/uL (150-450); Red Cell Distribution Width 16.2 % (11.5-14.0); White Blood Count 14.5 x10^3/uL (4.0-10.5)
[2023-12-27 09:58] LABS: ALBUMIN 4.5 g/dL (3.5-5.0); ANION GAP 14.1 MEQ/L (5-15); BILIRUBIN,TOTAL 0.9 mg/dL (0.2-1.3); Calcium 9.6 mg/dL (8.4-10.2); Creatinine 1 0.84 mg/dL (0.52-1.04); EST GLOMERULAR FILTRATION RATE 73.8 ML/MIN; Total Protein 8.4 g/dL (6.3-8.2)
[2023-12-27 10:02] LABS: Potassium 3.9 mmol/L (3.5-5.1)
--- NOTE | 2023-12-27 10:02 | XRAY ---
Indication: Short of breath. Comparison: April 05, 2023 Portable chest again demonstrates bilateral mid to lower lung interstitial alveolar opacities worsened in interim now appearing more consolidated left greater than right. Heart not enlarged. Bony thorax intact again with osteopenia and degenerative changes.
[2023-12-27] MEDS ORDERED: DUONEB 0.5-3 MG/3 ml Neb IH ONE ×2 (10:07→10:15)
[2023-12-27] MEDS ORDERED: Sterile H2O 10 ml IJ ONE (10:13)
[2023-12-27] MEDS ORDERED: solu-MEDROL ONE (10:13)
[2023-12-27 10:22] LABS: INFLUENZA A NEGATIVE (NEGATIVE); INFLUENZA B NEGATIVE (NEGATIVE); RESPIRATORY SYNCTIAL VIRUS NEGATIVE (NEGATIVE); SARS-CoV-2 Xpert Express NEGATIVE (NEGATIVE)
[2023-12-27] MEDS ORDERED: Zithromax 500 MG/ 250 ML NaCl Premix 500 MG/250 ML IVPB IV STA (11:14)
[2023-12-27] MEDS ORDERED: Zithromax 500 MG/ 250 ML NaCl Premix 500 MG/250 ML IVPB IV ONE (11:22)
[2023-12-27] MEDS: DUONEB 0.5-3 MG/3 ml Neb IH SCH ×2 (13:36→19:14)
--- NOTE | 2023-12-27 14:51 | PCM.HP ---
History of Present Illness - Chief Complaint Chief Complaint: copd exacerbation, hypoxia Date: 12/27/23 History of Present Illness: is a 73 year old female with a pmhx of COPD(RA at baseline), CHF(follows with Dr. Gomez), DMII, Cervical cancer, CAD with stents, AFIB (on eliquis), [place], HTN, and HLD who presented to ED 12/27/23 with complaints of a three day history of progressive shortness of breath and dry cough. Upon presentation patient tachycardic, tachypneic, and hypertensive. CXR demonstrating bilateral opacities with L>R consolidation. Lab findings remarkable for leukocytosis with WBC at 14.5. Patient placed on 3L of oxygen, given azithromycin, duoneb, and solumedrol with noted improvement. Plan for continued treatment with ceftriaxone/azithromycin/solumedrol. - Review of Systems Constitutional: Fatigue, Weakness Eyes: No Symptoms Ears, Nose, & Throat: No Symptoms Respiratory: Cough, Short Of Breath Cardiac: No Symptoms Abdominal/Gastrointestinal: No Symptoms Genitourinary Symptoms: No Symptoms Musculoskeletal: No Symptoms Skin: No Symptoms Neurological: No Symptoms Psychological: No Symptoms Endocrine: No Symptoms Hematologic/Lymphatic: No Symptoms Immunological/Allergic: No Symptoms Medications & Allergies Home Medications: Home Medication List Albuterol Sulfate [Proair Respiclick] 1 inh INTRANASAL DAILY 04/01/23 [History Confirmed 12/27/23] Allopurinol 300 mg [Zyloprim 300 mg] 300 mg PO HS 04/01/23 [History Confi rmed 12/27/23] Amiodarone HCl 200 mg [Cordarone 200 MG] 200 mg PO DAILY 04/01/23 [History Confirmed 12/27/23] Amlodipine Besylate [Norvasc] 10 mg PO DAILY 04/01/23 [History Confirmed 12/27/23] Apixaban [Eliquis] 5 mg PO BID 04/01/23 [History Confirmed 12/27/23] Aspirin EC 81 mg [Ecotrin 81 mg] 81 mg PO HS 04/01/23 [History Confirmed 12/27/23] Cyclosporine [Restasis Multidose] 1 drop OP BID 04/01/23 [History Confirmed 12/27/23] Empagliflozin [Jardiance] 10 mg PO DAILY 04/01/23 [History Confirmed 12/27/23] Fenofibric Acid 35 mg PO HS 04/01/23 [History Confirmed 12/27/23] Fluticasone Propionate [Flonase Allergy Relief] 50 mcg INTRANASAL BID 04/01/23 [History Confirmed 12/27/23] Insulin Detemir [Levemir Flexpen] 45 units SQ BID 04/01/23 [History Confirmed 12/27/23] Insulin Lispro [Humalog] 20 unit TID 04/01/23 [History Confirmed 12/27/23] Isosorbide Dinitrate 30 mg PO BREAKFAST 04/01/23 [History Confirmed 12/27/23] Montelukast Sodium 10 mg [Singulair 10 MG] 10 mg PO DAILY 04/01/23 [History Confirmed 12/27/23] Potassium Chloride 10 meq PO DAILY 04/01/23 [History Confirmed 12/27/23] Pregabalin 25 mg [Lyrica 25 MG] 25 mg PO BID 04/01/23 [History Confirmed 12/27/23] Semaglutide [Ozempic] 0.5 mg SQ WEEKLY 04/01/23 [History Confirmed 12/27/23] Spironolactone 25 mg [Aldactone 25 MG] 25 mg PO DAILY 04/01/23 [History Confirmed 12/27/23] Tizanidine HCl 4 mg [Zanaflex 4 MG] 4 mg PO HS 04/01/23 [History Confirmed 12/27/23] Torsemide 20 mg [Demadex 20 mg] 60 mg PO DAILY 04/01/23 [History Confirmed 12/27/23] Tramadol HCl 50 mg [Ultram 50 mg] 50 mg PO Q4-6HPRN PRN 04/01/23 [History Confirmed 12/27/23] Melatonin 1 tab PO HS 12/27/23 [History Confirmed 12/27/23] Metoprolol Succinate 50 mg [Toprol Xl 50 MG] 1 tab PO HS 12/27/23 [History Confirmed 12/27/23] Allergies/Adverse Reactions: Allergies Allergy/AdvReac Type Severity Reaction Status Date / Time cefaclor Allergy Verified 12/27/23 09:13 ciprofloxacin [From Cipro] Allergy Verified 12/27/23 09:13 gabapentin [From Neurontin] Allergy Verified 12/27/23 09:13 glipizide Allergy Verified 12/27/23 09:13 guaifenesin [From Robitussin] Allergy Verified 12/27/23 09:13 hydrocodone Allergy Verified 12/27/23 09:13 lisinopril Allergy Verified 12/27/23 09:13 lovastatin Allergy Verified 12/27/23 09:13 metoprolol Allergy Verified 12/27/23 09:13 naproxen [From Aleve] Allergy Verified 12/27/23 09:13 nifedipine [From Procardia] Allergy Verified 12/27/23 09:13 paroxetine Allergy Verified 12/27/23 09:13 Penicillins Allergy Verified 12/27/23 09:13 procaine [From Novocain] Allergy Verified 12/27/23 09:13 sulfacetamide Allergy Verified 12/27/23 09:13 tetracycline Allergy Verified 12/27/23 09:13 theophylline Allergy Verified 12/27/23 09:13 ticagrelor [From Brilinta] Allergy Verified 12/27/23 09:13 azithromycin [From Zithromax] AdvReac Mild Nausea Verified 12/27/23 09:13 - Past Medical History Past Medical History: Yes ENT History: Cataracts Cardiac History: Coronary Artery Disease, High Cholesterol, Hypertension, Myocardial Infarction ([place]) Respiratory History: CHF, COPD Endocrine Medical History: Diabetes Type II Musculoskelatal History: Arthritis GI Medical History: GERD History: Renal Disease Pyscho-Social History: No Pertinent History Reproductive Disorders: No Pertinent History, Cervical Cancer Comment: neuropathy - Female History Are you now?: No - Past Surgical History Past Surgical History: Yes Neuro Surgical History: No Pertinent History Cardiac History: Cardiac Catheterization, Cardiac Stent Respiratory Surgery: No Pertinent History GI Surgical History: Cholecystectomy Genitourinary Surgical Hx: No Pertinent History Musculskeletal Surgical Hx: No Pertinent History Female Surgical History: Other Other Surgical History: cervic ca , loop sx on cervix - Social History Smoking Status: Former smoker Exposure to second hand smoke: No Alcohol: None Drug Use: none - Physical Exam Vital Signs: Vital Signs - 24 hr Temp Pulse Resp BP BP Pulse Ox 12/27/23 13:37 89 22 93 L 12/27/23 11:51 97.6 F 84 19 158/70 95 12/27/23 11:00 155/67 12/27/23 10:31 22 143/57 98 12/27/23 10:25 77 16 96 12/27/23 10:01 28 H 152/58 98 12/27/23 09:31 104 H 27 H 137/76 12/27/23 09:23 95 12/27/23 09:13 98.4 F 90 40 H 174/95 95 12/27/23 09:11 26 H 174/95 91 L General Appearance: no apparent distress Neurologic Exam: alert, oriented x 3, cooperative Eye Exam: PERRL/EOMI Ears, Nose, Throat Exam: normal ENT inspection Neck Exam: normal inspection Respiratory Exam: diminished breath sounds, crackles/rales Cardiovascular Exam: regular rate/rhythm, normal heart sounds Gastrointestinal/Abdomen Exam: soft, normal bowel sounds Pelvic Exam: not done Rectal Exam: deferred Back Exam: normal inspection Extremity Exam: normal inspection Skin Exam: normal color Results - Labs Lab/Micro Results: Lab Results-Last 24 Hours 12/27/23 12/27/23 12/27/23 Range/Units 09:30 09:30 09:30 WBC 14.5 H (4.0-10.5) x10^3/uL RBC 4.60 (4.1-5.4) x10^6/uL Hgb 13.0 (12.0-16.0) g/dL Hct 42.6 (35-47) % MCV 92.6 (78-100) fL MCH 28.3 (26-32) pg MCHC 30.5 L (32-36) g/dL RDW 16.2 H (11.5-14.0) % Plt Count 369 (150-450) x10^3/uL MPV 11.4 H (7.5-11.0) fL Gran % 73.2 H (36.0-66.0) % Immature Gran % (Auto) 0.3 (0.00-0.4) % Nucleat RBC Rel Count 0.0 (0.00-0.1) % Eos # (Auto) 0.41 (0-0.5) x10^3/uL Immature Gran # (Auto) 0.05 H (0.00-0.03) x10^3u/L Absolute Lymphs (auto) 2.28 (1.0-4.6) x10^3/uL Absolute Monos (auto) 1.01 (0.0-1.3) x10^3/uL Absolute Nucleated RBC 0.00 (0.00-0.01) x10^3u/L Lymphocytes % 15.8 L (24.0-44.0) % Monocytes % 7.0 (0.0-12.0) % Eosinophils % 2.8 (0.00-5.0) % Basophils % 0.9 (0.0-0.4) % Absolute Granulocytes 10.57 H (1.4-6.9) x10^3/uL Basophils # 0.13 (0-0.4) x10^3/uL Sodium 140 (137-145) mmol/L Potassium 3.9 (3.5-5.1) mmol/L Chloride 106 (98-107) mmol/L Carbon Dioxide 23 (22-30) mmol/L Anion Gap 14.1 (5-15) MEQ/L BUN 18 H (7-17) mg/dL Creatinine 0.84 (0.52-1.04) mg/dL Estimated GFR 73.8 ML/MIN Glucose 137 H (74-106) mg/dL POC Glucometer (74 to 106) mg/dL Calcium 9.6 (8.4-10.2) mg/dL Total Bilirubin 0.90 (0.2-1.3) mg/dL AST 40 H (14-36) U/L ALT 24 (0-35) U/L Alkaline Phosphatase 71 (38-126) U/L Troponin I 0.025 (0.000-0.034) ng/mL NT-Pro-B Natriuret Pep 684 (<300) pg/mL Serum Total Protein 8.4 H (6.3-8.2) g/dL Albumin 4.5 (3.5-5.0) g/dL Influenza Type A Ag (NEGATIVE) Influenza Type B Ag (NEGATIVE) RSV (PCR) (NEGATIVE) SARS-CoV-2 (PCR) (NEGATIVE) 12/27/23 12/27/23 12/27/23 Range/Units 09:30 11:51 13:24 WBC (4.0-10.5) x10^3/uL RBC (4.1-5.4) x10^6/uL Hgb (12.0-16.0) g/dL Hct (35-47) % MCV (78-100) fL MCH (26-32) pg MCHC (32-36) g/dL RDW (11.5-14.0) % Plt Count (150-450) x10^3/uL MPV (7.5-11.0) fL Gran % (36.0-66.0) % Immature Gran % (Auto) (0.00-0.4) % Nucleat RBC Rel Count (0.00-0.1) % Eos # (Auto) (0-0.5) x10^3/uL Immature Gran # (Auto) (0.00-0.03) x10^3u/L Absolute Lymphs (auto) (1.0-4.6) x10^3/uL Absolute Monos (auto) (0.0-1.3) x10^3/uL Absolute Nucleated RBC (0.00-0.01) x10^3u/L Lymphocytes % (24.0-44.0) % Monocytes % (0.0-12.0) % Eosinophils % (0.00-5.0) % Basophils % (0.0-0.4) % Absolute Granulocytes (1.4-6.9) x10^3/uL Basophils # (0-0.4) x10^3/uL Sodium (137-145) mmol/L Potassium (3.5-5.1) mmol/L Chloride (98-107) mmol/L Carbon Dioxide (22-30) mmol/L Anion Gap (5-15) MEQ/L BUN (7-17) mg/dL Creatinine (0.52-1.04) mg/dL Estimated GFR ML/MIN Glucose (74-106) mg/dL POC Glucometer 151 H (74 to 106) mg/dL Calcium (8.4-10.2) mg/dL Total Bilirubin (0.2-1.3) mg/dL AST (14-36) U/L ALT (0-35) U/L Alkaline Phosphatase (38-126) U/L Troponin I 0.025 (0.000-0.034) ng/mL NT-Pro-B Natriuret Pep (<300) pg/mL Serum Total Protein (6.3-8.2) g/dL Albumin (3.5-5.0) g/dL Influenza Type A Ag NEGATIVE (NEGATIVE) Influenza Type B Ag NEGATIVE (NEGATIVE) RSV (PCR) NEGATIVE (NEGATIVE) SARS-CoV-2 (PCR) NEGATIVE (NEGATIVE) - Radiology Impressions Radiology Exams & Impressions: Radiology Procedures Category Date Time Status CHEST 1 VIEW (PORTABLE) Stat Exams 12/27/23 09:23 Completed - Other Procedures and Tests Respiratory Therapy 12/27/23 10:25 Respiratory Therapy Assessment DAILY 12/27/23 13:32 Oxygen Nasal Cannula 3 lpm Assessment/Plan (1) Acute respiratory failure with hypoxia Current Visit: No Status: Acute Assessment & Plan: -secondary to pneumonia/copd exacerbation -supplemental oxygen with goal spo2 >90-92% -RT eval -Nebs/bronchodilators -solumedrol -Treat underlying pneumonia with ceftriaxone/azithromycin -consider repeat cxr for treatment response -May need home oxygen on discharge Code(s): J96.01 - ACUTE RESPIRATORY FAILURE WITH HYPOXIA (2) Pneumonia Current Visit: Yes Status: Acute Qualifiers: Assessment & Plan: -CXR showing bilateral opacities with consolidation L>R -ceftriaxone/azithromycin, patient with multiple allergies has tolerated in the past with no issues -supplemental o2 for goal >90-92% -NEBS/bronchodilators/solumedrol Code(s): J18.9 - PNEUMONIA, UNSPECIFIED ORGANISM (3) CAD (coronary artery disease) Current Visit: Yes Status: Acute Assessment & Plan: -noted, continue appropriate home meds Code(s): I25.10 - ATHSCL HEART DISEASE OF [place] CORONARY ARTERY W/O ANG PCTRS (4) COPD exacerbation Current Visit: Yes Status: Acute Assessment & Plan: -see acute resp failure Code(s): J44.1 - CHRONIC OBSTRUCTIVE PULMONARY DISEASE W (ACUTE) EXACERBATION (5) Leukocytosis Current Visit: Yes Status: Acute Assessment & Plan: -secondary to pneumonia, treat underlying cause -Monitor cbc daily Code(s): D72.829 - ELEVATED WHITE BLOOD CELL COUNT, UNSPECIFIED (6) CHF (congestive heart failure) Current Visit: No Status: Acute Assessment & Plan: -Does not appear to be in exacerbation -BNP at 684 -Recent echo 07/13/23 EF 45-50% IMPRESSION: 1. MILD CONCENTRIC LEFT VENTRICULAR HYPERTROPHY. 2. MILD LEFT VENTRICULAR SYSTOLIC DYSFUNCTION. 3. DIASTOLIC DYSFUNCTION. 4. MITRAL ANNULUS AND VALVULAR CALCIFICATION WITH EVIDENCE OF MILD MITRAL STENOSIS. 5. MILD TO MODERATE MITRAL REGURGITATION AND MILD TRICUSPID REGURGITATION. -continue appropriate home meds Code(s): I50.9 - HEART FAILURE, UNSPECIFIED (7) Diabetes mellitus Current Visit: No Status: Acute Qualifiers: Diabetes mellitus type: type 2 Diabetes mellitus terminologist insulin use: unspecified retirement insulin use status Diabetes mellitus complication status: with kidney complications Diabetes mellitus complication detail: with chronic kidney disease Chronic kidney disease stage: stage 3 (moderate) Assessment & Plan: -ADA diet -Recent A1c 09/22/23 at 6.36 -continue home insulin, may need adjustments due to steroids Code(s): E11.9 - TYPE 2 DIABETES MELLITUS WITHOUT COMPLICATIONS (8) Atrial fibrillation Current Visit: No Status: Chronic Qualifiers: Atrial fibrillation type: longstanding persistent Qualified Code(s): I48.11 - Longstanding persistent atrial fibrillation Assessment & Plan: -Continue eliquis/metoprolol Code(s): I48.91 - UNSPECIFIED ATRIAL FIBRILLATION (9) HTN (hypertension) Current Visit: No Status: Chronic Qualifiers: Hypertension type: primary hypertension Qualified Code(s): I10 - Essential (primary) hypertension Assessment & Plan: -continue home meds Code(s): I10 - ESSENTIAL (PRIMARY) HYPERTENSION
[2023-12-27] MEDS ORDERED: HUMALOG SQ PRN (14:59)
[2023-12-27] MEDS ORDERED: TYLENOL 325 MG PO PRN (14:59)
[2023-12-27] MEDS ORDERED: ULTRAM 50 MG PO PRN (15:06)
[2023-12-27] MEDS: Aldactone 25 MG PO SCH (17:17)
[2023-12-27] MEDS: Klor Con PO SCH (17:17)
[2023-12-27] MEDS: Cordarone 200 MG PO SCH (17:17)
[2023-12-27] MEDS: JARDIANCE PO SCH (17:17)
[2023-12-27] MEDS: NORVASC 5 MG PO SCH (17:17)
[2023-12-27] MEDS: Lyrica 25 MG PO SCH ×2 (17:17→23:04)
[2023-12-27] MEDS: Singulair 10 MG PO SCH (17:18)
[2023-12-27] MEDS: HUMALOG SQ SCH (17:18)
[2023-12-27] MEDS: DEMADEX 20 MG PO SCH (17:18)
[2023-12-27] MEDS ORDERED: ROCEPHIN 2 Gm-D5w 50ML BAG** 0 G/0 ML IVPB IV ONE (20:26)
[2023-12-27] MEDS: ROCEPHIN 2 Gm-D5w 50ML BAG** 2 G/50 ML IVPB IV SCH (20:47)
[2023-12-27] MEDS: Toprol Xl 50 MG PO SCH (23:04)
[2023-12-27] MEDS: ECOTRIN 81 MG PO SCH (23:04)
[2023-12-27] MEDS: ELIQUIS 2.5 MG TABLET PO SCH (23:05)
[2023-12-27] MEDS: Tricor 145 MG PO SCH (23:05)
[2023-12-27] MEDS: MELATONIN PO SCH (23:05)
[2023-12-27] MEDS: Zanaflex 4 MG PO SCH (23:06)
[2023-12-27] MEDS: Lantus Insulin SQ SCH (23:06)
[2023-12-27] MEDS: Artificial Tears 15 ML OP SCH (23:08)
[2023-12-27] MEDS: ZYLOPRIM 300 MG PO SCH (23:09)
[2023-12-28] MEDS: DUONEB 0.5-3 MG/3 ml Neb IH SCH ×4 (01:37→19:16)
[2023-12-28 04:53] LABS: Absolute Neutrophil Ct (ANC) 9.81 x10^3/uL (1.4-6.9); BASOPHIL % 0.2 % (0.0-0.4); Basophil (Absolute #) 0.02 x10^3/uL (0-0.4); Eosinophil (Absolute #) 0 x10^3/uL (0-0.5); Hematocrit 33.7 % (35-47); Hemoglobin 10.7 g/dL (12.0-16.0); IMMATURE GRAN # 0.06 x10^3u/L (0.00-0.03); IMMATURE GRAN % 0.5 % (0.00-0.4); Lymphocyte (Absolute #) 0.67 x10^3/uL (1.0-4.6); Mean Cell Volume 90.3 fL (78-100); Mean Corpuscular Hemoglobin 28.7 pg (26-32); Mean Corpuscular Hgb Concent. 31.8 g/dL (32-36); Mean Platelet Volume 11.4 fL (7.5-11.0); Monocyte (Absolute #) 0.57 x10^3/uL (0.0-1.3); Monocytes % 5.1 % (0.0-12.0); Neutrophil % 88.2 % (36.0-66.0); Platelet Count 320 x10^3/uL (150-450); Red Blood Count 3.73 x10^6/uL (4.1-5.4); Red Cell Distribution Width 16.2 % (11.5-14.0); White Blood Count 11.1 x10^3/uL (4.0-10.5)
--- NOTE | 2023-12-28 05:12 | PCM.NOTE ---
Date and Time: 12/28/23 0511 Subjective Assessment: is a 73 year old female with a pmhx of COPD(RA at baseline), CHF(follows with Dr. Gomez), DMII, Cervical cancer, CAD with stents, AFIB (on eliquis), OR, HTN, and HLD who presented to ED 12/27/23 with complaints of a three day history of progressive shortness of breath and dry cough. Upon presentation patient tachycardic, tachypneic, and hypertensive. CXR demonstrating bilateral opacities with L>R consolidation. Lab findings remarkable for leukocytosis with WBC at 14.5. Patient placed on 3L of oxygen, given azithromycin, duoneb, and solumedrol with noted improvement. Plan for continued treatment with ceftriaxone/azithromycin/solumedrol. 12/28: Met with patient at bedside. Endorses improvement of shortness of breath and cough. On baseline RA but still increased shortness of breath with ambulation. Plan to qualify for home oxygen prior to discharge, possibly tomorrow. - Review of Systems Constitutional: No Symptoms Eyes: No Symptoms Ears, Nose, & Throat: No Symptoms Respiratory: Cough, Short Of Breath Cardiac: Edema (BLE +2 pitting) Abdominal/Gastrointestinal: No Symptoms Genitourinary Symptoms: No Symptoms Musculoskeletal: No Symptoms Skin: No Symptoms Neurological: No Symptoms Psychological: No Symptoms Endocrine: No Symptoms Hematologic/Lymphatic: No Symptoms Immunological/Allergic: No Symptoms Objective Exam General Appearance: no apparent distress Neurologic Exam: alert, oriented x 3, cooperative Skin Exam: normal color Eye Exam: PERRL Ears, Nose, Throat Exam: normal ENT inspection, moist mucous membranes Neck Exam: normal inspection Respiratory Exam: diminished breath sounds Gastrointestinal/Abdomen Exam: soft, normal bowel sounds Extremity Exam: swelling (BLE edema +2 pitting) Back Exam: normal inspection Pelvic Exam: deferred OBJECTIVE DATA Vital Signs: Vital Signs - 24 hr Temp Pulse Resp BP BP Pulse Ox 12/28/23 01:37 89 18 95 12/27/23 23:25 98.0 F 89 18 138/63 95 12/27/23 20:00 98.4 F 103 H 26 H 148/67 95 12/27/23 19:16 89 22 96 12/27/23 16:00 98.7 F 92 H 19 147/68 95 12/27/23 13:37 89 22 93 L 01/30/24 11:51 97.6 F 84 19 158/70 95 12/27/23 11:00 155/67 12/27/23 10:31 22 143/57 98 12/27/23 10:25 77 16 96 12/27/23 10:01 28 H 152/58 98 12/27/23 09:31 104 H 27 H 137/76 12/27/23 09:23 95 12/27/23 09:13 98.4 F 90 40 H 174/95 95 12/27/23 09:11 26 H 174/95 91 L Pain Assessment - Last Documented Pain Intensity 0 Intake and Output: Intake & Output 12/25/23 12/26/23 12/27/23 12/28/23 11:59 11:59 11:59 11:59 Intake Total 240 Output Total 1200 Balance -960 Weight 100.7 kg Lab Results: Lab Results-Last 24 Hours 12/27/23 12/27/23 12/27/23 Range/Units 09:30 09:30 09:30 WBC 14.5 H (4.0-10.5) x10^3/uL RBC 4.60 (4.1-5.4) x10^6/uL Hgb 13.0 (12.0-16.0) g/dL Hct 42.6 (35-47) % MCV 92.6 (78-100) fL MCH 28.3 (26-32) pg MCHC 30.5 L (32-36) g/dL RDW 16.2 H (11.5-14.0) % Plt Count 369 (150-450) x10^3/uL MPV 11.4 H (7.5-11.0) fL Gran % 73.2 H (36.0-66.0) % Immature Gran % (Auto) 0.3 (0.00-0.4) % Nucleat RBC Rel Count 0.0 (0.00-0.1) % Eos # (Auto) 0.41 (0-0.5) x10^3/uL Immature Gran # (Auto) 0.05 H (0.00-0.03) x10^3u/L Absolute Lymphs (auto) 2.28 (1.0-4.6) x10^3/uL Absolute Monos (auto) 1.01 (0.0-1.3) x10^3/uL Absolute Nucleated RBC 0.00 (0.00-0.01) x10^3u/L Lymphocytes % 15.8 L (24.0-44.0) % Monocytes % 7.0 (0.0-12.0) % Eosinophils % 2.8 (0.00-5.0) % Basophils % 0.9 (0.0-0.4) % Absolute Granulocytes 10.57 H (1.4-6.9) x10^3/uL Basophils # 0.13 (0-0.4) x10^3/uL Sodium 140 (137-145) mmol/L Potassium 3.9 (3.5-5.1) mmol/L Chloride 106 (98-107) mmol/L Carbon Dioxide 23 (22-30) mmol/L Anion Gap 14.1 (5-15) MEQ/L BUN 18 H (7-17) mg/dL Creatinine 0.84 (0.52-1.04) mg/dL Estimated GFR 73.8 ML/MIN Glucose 137 H (74-106) mg/dL POC Glucometer (74 to 106) mg/dL Hemoglobin A1c (4.5-6.0) % Calcium 9.6 (8.4-10.2) mg/dL Total Bilirubin 0.90 (0.2-1.3) mg/dL AST 40 H (14-36) U/L ALT 24 (0-35) U/L Alkaline Phosphatase 71 (38-126) U/L Troponin I 0.025 (0.000-0.034) ng/mL NT-Pro-B Natriuret Pep 684 (<300) pg/mL Serum Total Protein 8.4 H (6.3-8.2) g/dL Albumin 4.5 (3.5-5.0) g/dL Influenza Type A Ag (NEGATIVE) Influenza Type B Ag (NEGATIVE) RSV (PCR) (NEGATIVE) SARS-CoV-2 (PCR) (NEGATIVE) 12/27/23 12/27/23 12/27/23 Range/Units 09:30 11:51 13:24 WBC (4.0-10.5) x10^3/uL RBC (4.1-5.4) x10^6/uL Hgb (12.0-16.0) g/dL Hct (35-47) % MCV (78-100) fL MCH (26-32) pg MCHC (32-36) g/dL RDW (11.5-14.0) % Plt Count (150-450) x10^3/uL MPV (7.5-11.0) fL Gran % (36.0-66.0) % Immature Gran % (Auto) (0.00-0.4) % Nucleat RBC Rel Count (0.00-0.1) % Eos # (Auto) (0-0.5) x10^3/uL Immature Gran # (Auto) (0.00-0.03) x10^3u/L Absolute Lymphs (auto) (1.0-4.6) x10^3/uL Absolute Monos (auto) (0.0-1.3) x10^3/uL Absolute Nucleated RBC (0.00-0.01) x10^3u/L Lymphocytes % (24.0-44.0) % Monocytes % (0.0-12.0) % Eosinophils % (0.00-5.0) % Basophils % (0.0-0.4) % Absolute Granulocytes (1.4-6.9) x10^3/uL Basophils # (0-0.4) x10^3/uL Sodium (137-145) mmol/L Potassium (3.5-5.1) mmol/L Chloride (98-107) mmol/L Carbon Dioxide (22-30) mmol/L Anion Gap (5-15) MEQ/L BUN (7-17) mg/dL Creatinine (0.52-1.04) mg/dL Estimated GFR ML/MIN Glucose (74-106) mg/dL POC Glucometer 151 H (74 to 106) mg/dL Hemoglobin A1c (4.5-6.0) % Calcium (8.4-10.2) mg/dL Total Bilirubin (0.2-1.3) mg/dL AST (14-36) U/L ALT (0-35) U/L Alkaline Phosphatase (38-126) U/L Troponin I 0.025 (0.000-0.034) ng/mL NT-Pro-B Natriuret Pep (<300) pg/mL Serum Total Protein (6.3-8.2) g/dL Albumin (3.5-5.0) g/dL Influenza Type A Ag NEGATIVE (NEGATIVE) Influenza Type B Ag NEGATIVE (NEGATIVE) RSV (PCR) NEGATIVE (NEGATIVE) SARS-CoV-2 (PCR) NEGATIVE (NEGATIVE) 12/27/23 12/27/23 12/27/23 Range/Units 16:20 17:24 21:00 WBC (4.0-10.5) x10^3/uL RBC (4.1-5.4) x10^6/uL Hgb (12.0-16.0) g/dL Hct (35-47) % MCV (78-100) fL MCH (26-32) pg MCHC (32-36) g/dL RDW (11.5-14.0) % Plt Count (150-450) x10^3/uL MPV (7.5-11.0) fL Gran % (36.0-66.0) % Immature Gran % (Auto) (0.00-0.4) % Nucleat RBC Rel Count (0.00-0.1) % Eos # (Auto) (0-0.5) x10^3/uL Immature Gran # (Auto) (0.00-0.03) x10^3u/L Absolute Lymphs (auto) (1.0-4.6) x10^3/uL Absolute Monos (auto) (0.0-1.3) x10^3/uL Absolute Nucleated RBC (0.00-0.01) x10^3u/L Lymphocytes % (24.0-44.0) % Monocytes % (0.0-12.0) % Eosinophils % (0.00-5.0) % Basophils % (0.0-0.4) % Absolute Granulocytes (1.4-6.9) x10^3/uL Basophils # (0-0.4) x10^3/uL Sodium (137-145) mmol/L Potassium (3.5-5.1) mmol/L Chloride (98-107) mmol/L Carbon Dioxide (22-30) mmol/L Anion Gap (5-15) MEQ/L BUN (7-17) mg/dL Creatinine (0.52-1.04) mg/dL Estimated GFR ML/MIN Glucose (74-106) mg/dL POC Glucometer 269 H 212 H (74 to 106) mg/dL Hemoglobin A1c (4.5-6.0) % Calcium (8.4-10.2) mg/dL Total Bilirubin (0.2-1.3) mg/dL AST (14-36) U/L ALT (0-35) U/L Alkaline Phosphatase (38-126) U/L Troponin I 0.027 (0.000-0.034) ng/mL NT-Pro-B Natriuret Pep (<300) pg/mL Serum Total Protein (6.3-8.2) g/dL Albumin (3.5-5.0) g/dL Influenza Type A Ag (NEGATIVE) Influenza Type B Ag (NEGATIVE) RSV (PCR) (NEGATIVE) SARS-CoV-2 (PCR) (NEGATIVE) 12/27/23 12/28/23 Range/Units Unknown 04:19 WBC 11.1 H (4.0-10.5) x10^3/uL RBC 3.73 L (4.1-5.4) x10^6/uL Hgb 10.7 L (12.0-16.0) g/dL Hct 33.7 L (35-47) % MCV 90.3 (78-100) fL MCH 28.7 (26-32) pg MCHC 31.8 L (32-36) g/dL RDW 16.2 H (11.5-14.0) % Plt Count 320 (150-450) x10^3/uL MPV 11.4 H (7.5-11.0) fL Gran % 88.2 H (36.0-66.0) % Immature Gran % (Auto) 0.5 H (0.00-0.4) % Nucleat RBC Rel Count 0.0 (0.00-0.1) % Eos # (Auto) 0 (0-0.5) x10^3/uL Immature Gran # (Auto) 0.06 H (0.00-0.03) x10^3u/L Absolute Lymphs (auto) 0.67 L (1.0-4.6) x10^3/uL Absolute Monos (auto) 0.57 (0.0-1.3) x10^3/uL Absolute Nucleated RBC 0.00 (0.00-0.01) x10^3u/L Lymphocytes % 6.0 L (24.0-44.0) % Monocytes % 5.1 (0.0-12.0) % Eosinophils % 0.0 (0.00-5.0) % Basophils % 0.2 (0.0-0.4) % Absolute Granulocytes 9.81 H (1.4-6.9) x10^3/uL Basophils # 0.02 (0-0.4) x10^3/uL Sodium (137-145) mmol/L Potassium (3.5-5.1) mmol/L Chloride (98-107) mmol/L Carbon Dioxide (22-30) mmol/L Anion Gap (5-15) MEQ/L BUN (7-17) mg/dL Creatinine (0.52-1.04) mg/dL Estimated GFR ML/MIN Glucose (74-106) mg/dL POC Glucometer (74 to 106) mg/dL Hemoglobin A1c 6.10 H (4.5-6.0) % Calcium (8.4-10.2) mg/dL Total Bilirubin (0.2-1.3) mg/dL AST (14-36) U/L ALT (0-35) U/L Alkaline Phosphatase (38-126) U/L Troponin I (0.000-0.034) ng/mL NT-Pro-B Natriuret Pep (<300) pg/mL Serum Total Protein (6.3-8.2) g/dL Albumin (3.5-5.0) g/dL Influenza Type A Ag (NEGATIVE) Influenza Type B Ag (NEGATIVE) RSV (PCR) (NEGATIVE) SARS-CoV-2 (PCR) (NEGATIVE) Radiology Exams: Radiology Procedures Category Date Time Status CHEST 1 VIEW (PORTABLE) Stat Exams 12/27/23 09:23 Completed Assessment/Plan (1) Acute respiratory failure with hypoxia Current Visit: No Status: Acute Assessment & Plan: -secondary to pneumonia/copd exacerbation -supplemental oxygen with goal spo2 >90-92% -RT eval -Nebs/bronchodilators -solumedrol -Treat underlying pneumonia with ceftriaxone/azithromycin -consider repeat cxr for treatment response -May need home oxygen on discharge 12/28: -continues to need 2L oxygen -Improvement in aeration on lung auscultation -Continue IV steroid/abx for one more day, possible discharge tomorrow Code(s): J96.01 - ACUTE RESPIRATORY FAILURE WITH HYPOXIA (2) Pneumonia Current Visit: Yes Status: Acute Qualifiers: Assessment & Plan: -CXR showing bilateral opacities with consolidation L>R -ceftriaxone/azithromycin, patient with multiple allergies has tolerated in the past with no issues -supplemental o2 for goal >90-92% -NEBS/bronchodilators/solumedrol 12/28: -see ARF Code(s): J18.9 - PNEUMONIA, UNSPECIFIED ORGANISM #FREDERICK -IVF contraindicated due to HFrEF -conitinue to monitor renal/lytes (3) CAD (coronary artery disease) Current Visit: Yes Status: Acute Assessment & Plan: -noted, continue appropriate home meds Code(s): I25.10 - ATHSCL HEART DISEASE OF [place] CORONARY ARTERY W/O ANG PCTRS (4) COPD exacerbation Current Visit: Yes Status: Acute Assessment & Plan: -see acute resp failure Code(s): J44.1 - CHRONIC OBSTRUCTIVE PULMONARY DISEASE W (ACUTE) EXACERBATION (5) Leukocytosis Current Visit: Yes Status: Acute Assessment & Plan: -secondary to pneumonia, treat underlying cause -Monitor cbc daily 12/28: -increase secondary to steroids most likely will continue to trend Code(s): D72.829 - ELEVATED WHITE BLOOD CELL COUNT, UNSPECIFIED (6) CHF (congestive heart failure) Current Visit: No Status: Acute Assessment & Plan: -Does not appear to be in exacerbation -BNP at 684 -Recent echo 07/13/23 EF 45-50% IMPRESSION: 1. MILD CONCENTRIC LEFT VENTRICULAR HYPERTROPHY. 2. MILD LEFT VENTRICULAR SYSTOLIC DYSFUNCTION. 3. DIASTOLIC DYSFUNCTION. 4. MITRAL ANNULUS AND VALVULAR CALCIFICATION WITH EVIDENCE OF MILD MITRAL STENOSIS. 5. MILD TO MODERATE MITRAL REGURGITATION AND MILD TRICUSPID REGURGITATION. -continue appropriate home meds Code(s): I50.9 - HEART FAILURE, UNSPECIFIED (7) Diabetes mellitus Current Visit: No Status: Acute Qualifiers: Diabetes mellitus type: type 2 Diabetes mellitus terminal operations manager insulin use: unspecified terminal operations manager insulin use status Diabetes mellitus complication status: with kidney complications Diabetes mellitus complication detail: with chronic kidney disease Chronic kidney disease stage: stage 3 (moderate) Assessment & Plan: -ADA diet -Recent A1c 09/22/23 at 6.36 -continue home insulin, may need adjustments due to steroids Code(s): E11.9 - TYPE 2 DIABETES MELLITUS WITHOUT COMPLICATIONS (8) Atrial fibrillation Current Visit: No Status: Chronic Qualifiers: Atrial fibrillation type: longstanding persistent Qualified Code(s): I48.11 - Longstanding persistent atrial fibrillation Assessment & Plan: -Continue eliquis/metoprolol Code(s): I48.91 - UNSPECIFIED ATRIAL FIBRILLATION (9) HTN (hypertension) Current Visit: No Status: Chronic Qualifiers: Hypertension type: primary hypertension Qualified Code(s): I10 - Essential (primary) hypertension Assessment & Plan: -continue home meds Code(s): J96.01 - ACUTE RESPIRATORY FAILURE WITH HYPOXIA (2) Pneumonia Current Visit: Yes Status: Acute Qualifiers: Code(s): J18.9 - PNEUMONIA, UNSPECIFIED ORGANISM (3) CAD (coronary artery disease) Current Visit: Yes Status: Acute Code(s): I25.10 - ATHSCL HEART DISEASE OF [place] CORONARY ARTERY W/O ANG PCTRS (4) COPD exacerbation Current Visit: Yes Status: Acute Code(s): J44.1 - CHRONIC OBSTRUCTIVE PULMONARY DISEASE W (ACUTE) EXACERBATION (5) Leukocytosis Current Visit: Yes Status: Acute Code(s): D72.829 - ELEVATED WHITE BLOOD CELL COUNT, UNSPECIFIED (6) CHF (congestive heart failure) Current Visit: No Status: Acute Code(s): I50.9 - HEART FAILURE, UNSPECIFIED (7) Diabetes mellitus Current Visit: No Status: Acute Qualifiers: Diabetes mellitus type: type 2 Diabetes mellitus terminal operations manager insulin use: unspecified correction insulin use status Diabetes mellitus complication status: with kidney complications Diabetes mellitus complication detail: with chronic kidney disease Chronic kidney disease stage: stage 3 (moderate) Code(s): E11.9 - TYPE 2 DIABETES MELLITUS WITHOUT COMPLICATIONS (8) Atrial fibrillation Current Visit: No Status: Chronic Qualifiers: Atrial fibrillation type: longstanding persistent Qualified Code(s): I48.11 - Longstanding persistent atrial fibrillation Code(s): I48.91 - UNSPECIFIED ATRIAL FIBRILLATION (9) HTN (hypertension) Current Visit: No Status: Chronic Qualifiers: Hypertension type: primary hypertension Qualified Code(s): I10 - Essential (primary) hypertension Code(s): I10 - ESSENTIAL (PRIMARY) HYPERTENSION (10) FREDERICK (acute kidney injury) Current Visit: Yes Status: Acute Code(s): N17.9 - ACUTE KIDNEY FAILURE, UNSPECIFIED
[2023-12-28 05:19] LABS: ALBUMIN 3.7 g/dL (3.5-5.0); ANION GAP 10.6 MEQ/L (5-15); BILIRUBIN,TOTAL 0.4 mg/dL (0.2-1.3); Calcium 9.1 mg/dL (8.4-10.2); Creatinine 1 1.22 mg/dL (0.52-1.04); EST GLOMERULAR FILTRATION RATE 47.2 ML/MIN; Potassium 4.1 mmol/L (3.5-5.1); Total Protein 7.1 g/dL (6.3-8.2)
[2023-12-28] MEDS: HUMALOG SQ SCH ×3 (08:20→17:10)
[2023-12-28] MEDS: Imdur 30 MG PO SCH (08:20)
[2023-12-28] MEDS: Lantus Insulin SQ SCH ×2 (10:08→22:20)
[2023-12-28] MEDS: Lyrica 25 MG PO SCH ×2 (10:09→22:20)
[2023-12-28] MEDS: ELIQUIS 2.5 MG TABLET PO SCH ×2 (10:09→22:19)
[2023-12-28] MEDS: Cordarone 200 MG PO SCH (10:09)
[2023-12-28] MEDS: DEMADEX 20 MG PO SCH (10:09)
[2023-12-28] MEDS: NORVASC 5 MG PO SCH (10:09)
[2023-12-28] MEDS: Klor Con PO SCH (10:10)
[2023-12-28] MEDS: Singulair 10 MG PO SCH (10:10)
[2023-12-28] MEDS: JARDIANCE PO SCH (10:10)
[2023-12-28] MEDS: Artificial Tears 15 ML OP SCH ×2 (10:10→22:18)
[2023-12-28] MEDS: Aldactone 25 MG PO SCH (10:11)
[2023-12-28] MEDS: solu-MEDROL 40 MG, Sterile H2O 10 ml 1 ML IV SCH ×4 (11:22→22:20)
[2023-12-28] MEDS: ROCEPHIN 2 Gm-D5w 50ML BAG** 2 G/50 ML IVPB IV SCH (11:36)
[2023-12-28] MEDS: Zithromax 500 MG/ 250 ML NaCl Premix 500 MG/250 ML IVPB IV SCH (12:05)
[2023-12-28] MEDS: MELATONIN PO SCH (22:19)
[2023-12-28] MEDS: Zanaflex 4 MG PO SCH (22:19)
[2023-12-28] MEDS: ECOTRIN 81 MG PO SCH (22:19)
[2023-12-28] MEDS: Tricor 145 MG PO SCH (22:19)
[2023-12-28] MEDS: ZYLOPRIM 300 MG PO SCH (22:20)
[2023-12-28] MEDS: Toprol Xl 50 MG PO SCH (22:20)
[2023-12-29] MEDS: DUONEB 0.5-3 MG/3 ml Neb IH SCH ×3 (01:21→12:48)
[2023-12-29 05:00] LABS: Absolute Neutrophil Ct (ANC) 11.46 x10^3/uL (1.4-6.9); BASOPHIL % 0.2 % (0.0-0.4); Basophil (Absolute #) 0.02 x10^3/uL (0-0.4); Eosinophil (Absolute #) 0 x10^3/uL (0-0.5); Hemoglobin 10.8 g/dL (12.0-16.0); IMMATURE GRAN # 0.06 x10^3u/L (0.00-0.03); IMMATURE GRAN % 0.5 % (0.00-0.4); Lymphocyte (Absolute #) 0.47 x10^3/uL (1.0-4.6); Lymphocytes % 3.9 % (24.0-44.0); Mean Cell Volume 90.7 fL (78-100); Mean Corpuscular Hgb Concent. 30.9 g/dL (32-36); Mean Platelet Volume 10.8 fL (7.5-11.0); Monocyte (Absolute #) 0.15 x10^3/uL (0.0-1.3); Monocytes % 1.2 % (0.0-12.0); Neutrophil % 94.2 % (36.0-66.0); Platelet Count 327 x10^3/uL (150-450); Red Blood Count 3.86 x10^6/uL (4.1-5.4); Red Cell Distribution Width 15.9 % (11.5-14.0); White Blood Count 12.2 x10^3/uL (4.0-10.5)
[2023-12-29 05:44] LABS: ANION GAP 11.4 MEQ/L (5-15); BILIRUBIN,TOTAL 0.5 mg/dL (0.2-1.3); Calcium 9.5 mg/dL (8.4-10.2); Creatinine 1 1.38 mg/dL (0.52-1.04); EST GLOMERULAR FILTRATION RATE 40.7 ML/MIN; Potassium 4.3 mmol/L (3.5-5.1); Total Protein 7.6 g/dL (6.3-8.2)
--- NOTE | 2023-12-29 05:53 | PCM.DS ---
Discharge Summary Date of Admission: 12/27/23 11:41 Date of Discharge: 12/29/23 Admitting Physician: ROQUE RACHEL MD Primary Care Provider: KEVON HASTINGS Allergies Allergies cefaclor Allergy (Verified 12/27/23 09:13) ciprofloxacin [From Cipro] Allergy (Verified 12/27/23 09:13) gabapentin [From Neurontin] Allergy (Verified 12/27/23 09:13) glipizide Allergy (Verified 12/27/23 09:13) guaifenesin [From Robitussin] Allergy (Verified 12/27/23 09:13) hydrocodone Allergy (Verified 12/27/23 09:13) lisinopril Allergy (Verified 12/27/23 09:13) lovastatin Allergy (Verified 12/27/23 09:13) metoprolol Allergy (Verified 12/27/23 09:13) naproxen [From Aleve] Allergy (Verified 12/27/23 09:13) nifedipine [From Procardia] Allergy (Verified 12/27/23 09:13) paroxetine Allergy (Verified 12/27/23 09:13) Penicillins Allergy (Verified 12/27/23 09:13) procaine [From Novocain] Allergy (Verified 12/27/23 09:13) sulfacetamide Allergy (Verified 12/27/23 09:13) tetracycline Allergy (Verified 12/27/23 09:13) theophylline Allergy (Verified 12/27/23 09:13) ticagrelor [From Brilinta] Allergy (Verified 12/27/23 09:13) azithromycin [From Zithromax] Adverse Reaction (Mild, Verified 12/27/23 09:13) Nausea not true allergy Hospital Summary - Hospital Course Hospital Course: is a 73 year old female with a pmhx of COPD(RA at baseline), CHF(follows with Dr. Gomez), DMII, Cervical cancer, CAD with stents, AFIB (on eliquis), ID, HTN, and HLD who presented to ED 12/27/23 with complaints of a three day history of progressive shortness of breath and dry cough. Upon presentation patient tachycardic, tachypneic, and hypertensive. CXR demonstrating bilateral opacities with L>R consolidation. Lab findings remarkable for leukocytosis with WBC at 14.5. Patient placed on 3L of oxygen, given azithromycin, duoneb, and solumedrol with noted improvement. IP treatment with ceftriaxone/azithromycin/solumedrol. Dyspnea and cough improved. Will refer to nephrology for continued management of ckd, patient is at her baseline creat. Home oxygen set up for patient. Will discharge with cefpodoxime/medrol dose pack/duonebs. Patient states she does have bronchodilator at home, needs a new nebulizer machine which we will obtain for her. Advised patient to log blood glucose levels while on steroids and follow up with pcp/pulm. Patient with multiple allergies to medication. She tolerated ceftriaxone well, states she does tolerate some cephlosporins, some cause nausea as reaction. Discharge Note New Diagnosis: Pneumonia New Medications: cefpodoxime/medrol dose pack Follow Up: PCP/pulm Latest Assessment & Plan (1) Acute respiratory failure with hypoxia Current Visit: No Status: Acute Assessment & Plan: -secondary to pneumonia/copd exacerbation -supplemental oxygen with goal spo2 >90-92% -RT eval -Nebs/bronchodilators -solumedrol -Treat underlying pneumonia with ceftriaxone/azithromycin -consider repeat cxr for treatment response -May need home oxygen on discharge 12/28: -continues to need 2L oxygen -Improvement in aeration on lung auscultation -Continue IV steroid/abx for one more day, possible discharge tomorrow Code(s): J96.01 - ACUTE RESPIRATORY FAILURE WITH HYPOXIA (2) Pneumonia Current Visit: Yes Status: Acute Qualifiers: Assessment & Plan: -CXR showing bilateral opacities with consolidation L>R -ceftriaxone/azithromycin, patient with multiple allergies has tolerated in the past with no issues -supplemental o2 for goal >90-92% -NEBS/bronchodilators/solumedrol 12/28: -see ARF Code(s): J18.9 - PNEUMONIA, UNSPECIFIED ORGANISM #FREDERICK -IVF contraindicated due to HFrEF -continue to monitor renal/lytes 12/29: -Patient states she has CKD, baseline creat per her report is around 1.2/1.3 monitored by nephrology, she would like to be set up with local nephrology on d/c (3) CAD (coronary artery disease) Current Visit: Yes Status: Acute Assessment & Plan: -noted, continue appropriate home meds Code(s): I25.10 - ATHSCL HEART DISEASE OF [place] CORONARY ARTERY W/O ANG PCTRS (4) COPD exacerbation Current Visit: Yes Status: Acute Assessment & Plan: -see acute resp failure Code(s): J44.1 - CHRONIC OBSTRUCTIVE PULMONARY DISEASE W (ACUTE) EXACERBATION (5) Leukocytosis Current Visit: Yes Status: Acute Assessment & Plan: -secondary to pneumonia, treat underlying cause -Monitor cbc daily 12/28: -increase secondary to steroids most likely will continue to trend Code(s): D72.829 - ELEVATED WHITE BLOOD CELL COUNT, UNSPECIFIED (6) CHF (congestive heart failure) Current Visit: No Status: Acute Assessment & Plan: -Does not appear to be in exacerbation -BNP at 684 -Recent echo 07/13/23 EF 45-50% IMPRESSION: 1. MILD CONCENTRIC LEFT VENTRICULAR HYPERTROPHY. 2. MILD LEFT VENTRICULAR SYSTOLIC DYSFUNCTION. 3. DIASTOLIC DYSFUNCTION. 4. MITRAL ANNULUS AND VALVULAR CALCIFICATION WITH EVIDENCE OF MILD MITRAL STENOSIS. 5. MILD TO MODERATE MITRAL REGURGITATION AND MILD TRICUSPID REGURGITATION. 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 insulin use status Diabetes mellitus complication status: with kidney complications Diabetes mellitus complication detail: with chronic kidney disease Chronic kidney disease stage: stage 3 (moderate) Assessment & Plan: -ADA diet -Recent A1c 09/22/23 at 6.36 -continue home insulin, may need adjustments due to steroids Code(s): E11.9 - TYPE 2 DIABETES MELLITUS WITHOUT COMPLICATIONS (8) Atrial fibrillation Current Visit: No Status: Chronic Qualifiers: Atrial fibrillation type: longstanding persistent Qualified Code(s): I48.11 - Longstanding persistent atrial fibrillation Assessment & Plan: -Continue eliquis/metoprolol Code(s): I48.91 - UNSPECIFIED ATRIAL FIBRILLATION (9) HTN (hypertension) Current Visit: No Status: Chronic Qualifiers: Hypertension type: primary hypertension Qualified Code(s): I10 - Essential (primary) hypertension Assessment & Plan: -continue home meds Code(s): J96.01 - ACUTE RESPIRATORY FAILURE WITH HYPOXIA I spent 35 minutes [id number] with the patient on the day of discharge performing discharge exam, discussing hospital stay and discharge instructions with patient and caregivers, preparation of discharge records, prescriptions & referral forms and addressing any questions/concerns the patient had as documented above. - Vitals & Intake/Output Vital Signs: Vital Signs Temperature 97.7 F 12/29/23 04:00 Pulse Rate 68 12/29/23 04:00 Respiratory Rate 20 12/29/23 04:00 Blood Pressure 151/67 12/29/23 04:00 O2 Sat by Pulse Oximetry 100 12/29/23 04:00 Intake & Output: Intake & Output 12/26/23 12/27/23 12/28/23 12/29/23 11:59 11:59 11:59 11:59 Intake Total 3400 2440 Output Total 3800 3400 Balance -400 -960 Weight 100.7 kg - Lab Result Diagrams: 12/29/23 04:23 12/29/23 04:23 Lab Results-Last 24 Hrs: Lab Results-Last 24 Hours 12/28/23 12/28/23 12/28/23 Range/Units 07:31 11:56 16:14 POC Glucometer 126 H 93 226 H (74 to 106) mg/dL 12/28/23 Range/Units 21:45 POC Glucometer 196 H (74 to 106) mg/dL Micro Results-Entire Visit: Accuchecks Date 12/28/23 Date 12/28/23 Time 12:35 Time 07:54 - Radiology Exams Ordered Rad Exams-Entire Visit: Radiology Procedures Category Date Time Status CHEST 1 VIEW (PORTABLE) Stat Exams 12/27/23 09:23 Completed - Procedures and Test Procedures and Tests throughout Hospitalization: Therapy Orders & Screens 12/27/23 10:25 Respiratory Therapy Assessment DAILY Comment: 12/27/23 13:32 Oxygen Nasal Cannula 3 lpm Comment: Diagnosis: copd exacerbation, hypoxia 12/27/23 14:57 PT Eval & Treat (MD Order) ONCE Reason for Eval:: weakness Diagnosis: copd exacerbation, hypoxia Respiratory Therapy Consult ONCE Comment: Reason For Exam: Diagnosis: copd exacerbation, hypoxia OT Eval and Treat (MD Order) ONCE Comment: Physician Instructions: Reason For Exam: Diagnosis: copd exacerbation, hypoxia Discharge Exam General Appearance: no apparent distress Neurologic Exam: alert, oriented x 3, cooperative Eye Exam: PERRL Ears, Nose, Throat Exam: normal ENT inspection Neck Exam: normal inspection Respiratory Exam: crackles/rales Cardiovascular Exam: regular rate/rhythm, normal heart sounds Gastrointestinal/Abdomen Exam: soft, normal bowel sounds Pelvic Exam: deferred Rectal Exam: deferred Back Exam: normal inspection Extremity Exam: swelling (BLE) Skin Exam: normal color Final Diagnosis/Problem List - Final Discharge Diagnosis/Problem (1) Pneumonia Current Visit: Yes Status: Acute Code(s): J18.9 - PNEUMONIA, UNSPECIFIED ORGANISM (2) Acute respiratory failure with hypoxia Current Visit: No Status: Acute Code(s): J96.01 - ACUTE RESPIRATORY FAILURE WITH HYPOXIA (3) CAD (coronary artery disease) Current Visit: Yes Status: Acute Code(s): I25.10 - ATHSCL HEART DISEASE OF [place] CORONARY ARTERY W/O ANG PCTRS (4) COPD exacerbation Current Visit: Yes Status: Acute Code(s): J44.1 - CHRONIC OBSTRUCTIVE PULMONARY DISEASE W (ACUTE) EXACERBATION (5) Leukocytosis Current Visit: Yes Status: Acute Code(s): D72.829 - ELEVATED WHITE BLOOD CELL COUNT, UNSPECIFIED (6) CHF (congestive heart failure) Current Visit: No Status: Acute Code(s): I50.9 - HEART FAILURE, UNSPECIFIED (7) Diabetes mellitus Current Visit: No Status: Acute Code(s): E11.9 - TYPE 2 DIABETES MELLITUS WITHOUT COMPLICATIONS (8) Atrial fibrillation Current Visit: No Status: Chronic Code(s): I48.91 - UNSPECIFIED ATRIAL FIBRILLATION (9) HTN (hypertension) Current Visit: No Status: Chronic Code(s): I10 - ESSENTIAL (PRIMARY) HYPERTENSION (10) FREDERICK (acute kidney injury) Current Visit: Yes Status: Acute Code(s): N17.9 - ACUTE KIDNEY FAILURE, UNSPECIFIED - Discharge Prescriptions: New Albuterol/Ipratropium 3ml Neb* [DUONEB 0.5-3 MG/3 ml Neb] 3 ml IH Q6HPRN PRN 30 Days #120 amp PRN Reason: Shortness Of Breath/Wheezing Methylprednisolone Packet [Medrol Dosepack] 4 mg PO UD #30 packet Cefpodoxime Proxetil 200 mg [Vantin 200 mg] 200 mg PO BID 7 Days #14 tablet Continue Pregabalin 25 mg [Lyrica 25 MG] 25 mg PO BID Montelukast Sodium 10 mg [Singulair 10 MG] 10 mg PO DAILY Isosorbide Dinitrate 30 mg PO BREAKFAST Insulin Detemir [Levemir Flexpen] 45 units SQ BID Empagliflozin [Jardiance] 10 mg PO DAILY Cyclosporine [Restasis Multidose] 1 drop OP BID Apixaban [Eliquis] 5 mg PO BID Amlodipine Besylate [Norvasc] 10 mg PO DAILY Amiodarone HCl 200 mg [Cordarone 200 MG] 200 mg PO DAILY Allopurinol 300 mg [Zyloprim 300 mg] 300 mg PO HS Fenofibric Acid 35 mg PO HS Potassium Chloride 10 meq PO DAILY Tramadol HCl 50 mg [Ultram 50 mg] 50 mg PO Q4-6HPRN PRN PRN Reason: Pain Albuterol Sulfate [Proair Respiclick] 1 inh INTRANASAL DAILY Semaglutide [Ozempic] 0.5 mg SQ WEEKLY Tizanidine HCl 4 mg [Zanaflex 4 MG] 4 mg PO HS Spironolactone 25 mg [Aldactone 25 MG] 25 mg PO DAILY Torsemide 20 mg [Demadex 20 mg] 60 mg PO DAILY Aspirin EC 81 mg [Ecotrin 81 mg] 81 mg PO HS Insulin Lispro [Humalog] 20 unit TID Fluticasone Propionate [Flonase Allergy Relief] 50 mcg INTRANASAL BID Metoprolol Succinate 50 mg [Toprol Xl 50 MG] 1 tab PO HS Melatonin 1 tab PO HS Additional Instructions: A REFERRAL WAS SENT TO OUR [facility] TO SEE IF THEY CAN ASSIST WITH OPTIONS FOR TRANSPORTATION. THEY WILL REACH OUT TO YOU. YOU CAN ALSO REACH THEM AT [phone] ext [phone] Follow up with: KEVON HASTINGS MD [Primary Care Provider] - 01/05/24 10:45 am
[2023-12-29 07:14] LABS: Slide Review 1 YES
[2023-12-29 07:18] VITALS: PULSE 77; RESP 18; TEMP 97.5
[2023-12-29] MEDS: HUMALOG SQ SCH ×3 (07:52→17:17)
[2023-12-29] MEDS: Imdur 30 MG PO SCH (07:53)
[2023-12-29] MEDS ORDERED: Mucinex 600MG ER Tabs PO SCH (10:00)
[2023-12-29] MEDS: Singulair 10 MG PO SCH (10:14)
[2023-12-29] MEDS: Cordarone 200 MG PO SCH (10:14)
[2023-12-29] MEDS: DEMADEX 20 MG PO SCH (10:15)
[2023-12-29] MEDS: ELIQUIS 2.5 MG TABLET PO SCH (10:15)
[2023-12-29] MEDS: NORVASC 5 MG PO SCH (10:15)
[2023-12-29] MEDS: Klor Con PO SCH (10:16)
[2023-12-29] MEDS: Aldactone 25 MG PO SCH (10:17)
[2023-12-29] MEDS: Lyrica 25 MG PO SCH (10:17)
[2023-12-29] MEDS: Artificial Tears 15 ML OP SCH (10:18)
[2023-12-29] MEDS: JARDIANCE PO SCH (10:19)
[2023-12-29] MEDS: solu-MEDROL 40 MG, Sterile H2O 10 ml 1 ML IV SCH ×2 (10:19)
[2023-12-29] MEDS: Lantus Insulin SQ SCH (10:20)
[2023-12-29] MEDS: ROCEPHIN 2 Gm-D5w 50ML BAG** 2 G/50 ML IVPB IV SCH (10:42)
[2023-12-29] MEDS: Zithromax 500 MG/ 250 ML NaCl Premix 500 MG/250 ML IVPB IV SCH (10:50)
[2023-12-29 12:50] VITALS: O2SAT 94
[2023-12-29 14:21] VITALS: BP 145/65
== END 2023-12-29 18:10 | disposition home or self-care (01) ==
LOC: ED 09:06 → MED SURG 11:41
PROVIDERS: ADMIT Internal Medicine; ATTEND Internal Medicine
DX: J18.9 Pneumonia, unspecified organism (principal); J96.01 Acute respiratory failure with hypoxia; N17.9 Acute kidney failure, unspecified; I25.10 Atherosclerotic heart disease of native coronary artery without angina pectoris; J44.1 Chronic obstructive pulmonary disease with (acute) exacerbation; D72.829 Elevated white blood cell count, unspecified; I11.0 Hypertensive heart disease with heart failure; I50.9 Heart failure, unspecified; E11.9 Type 2 diabetes mellitus without complications; I48.91 Unspecified atrial fibrillation; E78.5 Hyperlipidemia, unspecified; Z79.01 Long term (current) use of anticoagulants; Z79.899 Other long term (current) drug therapy; Z20.828 Contact with and (suspected) exposure to other viral communicable diseases; Z85.41 Personal history of malignant neoplasm of cervix uteri; Z59.41 Food insecurity; Z59.82 Transportation insecurity
CPT/HCPCS: 0241U; 36000; 36415; 71045; 80053; 82947; 83036; 83880; 84484; 85025; 87040; 93005; 93041; 94640; 94760; 96374; 97110; 97162; 97165; 99285; Q3014; 93268; J0456; J0696; J1817; J2920; J2930; A9270-GY; G0378

== ENCOUNTER 2024-01-21 20:03 | Emergency (ER) | payer MEDICARE ==
--- NOTE | 2024-01-21 20:05 | ERPHSYRPT ---
- History of Present Illness Time Seen by Provider: 01/21/24 20:04 Source: patient, EMS, old records Exam Limitations: no limitations Physician History: This is a 73-year-old obese white female patient who presents to the emergency department via transportation by paramedics who provided independent, additional history because of the patient's confused state. Patient was admitted to our facility on 12/27/2023 and discharged home on 12/29/2023 for treatment of a pneumon ia. Patient thought she was discharged to home from our facility 2 days ago. Patient has a history of CHF, oxygen dependent COPD with 2 L of oxygen via nasal cannula, has a history of atrial fibrillation on both Eliquis and amiodarone, diabetes, hypertension, coronary artery disease (cardiac stent), hyperlipidemia neuropathy and chronic renal disease. I reviewed the admission and discharge notes from most recent hospitalization. I also reviewed the echocardiogram results that were performed in June 2023. Patient's cardiac ejection fraction was 45 to 50%. Patient's vacuum drier tender is Dr. Gomez. Patient states that she does not have chest pain at the time. However she does present with a fever and shortness of breath. Patient states she did fall on her butt. Paramedics found her on the floor sitting. Timing/Duration: yesterday, worse Activities at Onset: none Severity of Dyspnea-Max: moderate Severity of Dyspnea-Current: moderate Possible Cause: occasional episodes Associated Symptoms: weakness, No chest pain/discomfort Allergies/Adverse Reactions: cefaclor Allergy (Verified 01/21/24 22:21) ciprofloxacin [From Cipro] Allergy (Verified 01/21/24 22:21) gabapentin [From Neurontin] Allergy (Verified 01/21/24 22:21) glipizide Allergy (Verified 01/21/24 22:21) guaifenesin [From Robitussin] Allergy (Verified 01/21/24 22:21) hydrocodone Allergy (Verified 01/21/24 22:21) lisinopril Allergy (Verified 01/21/24 22:21) lovastatin Allergy (Verified 01/21/24 22:21) metoprolol Allergy (Verified 01/21/24 22:21) naproxen [From Aleve] Allergy (Verified 01/21/24 22:21) nifedipine [From Procardia] Allergy (Verified 01/21/24 22:21) paroxetine Allergy (Verified 01/21/24 22:21) Penicillins Allergy (Verified 01/21/24 22:21) procaine [From Novocain] Allergy (Verified 01/21/24 22:21) sulfacetamide Allergy (Verified 01/21/24 22:21) tetracycline Allergy (Verified 01/21/24 22:21) theophylline Allergy (Verified 01/21/24 22:21) ticagrelor [From Brilinta] Allergy (Verified 01/21/24 22:21) azithromycin [From Zithromax] Adverse Reaction (Mild, Verified 01/21/24 22:21) Nausea not true allergy Home Medications: Albuterol Sulfate [Proair Respiclick] 1 inh IH DAILY 04/01/23 [History] Allopurinol 300 mg [Zyloprim 300 mg] 300 mg PO HS 04/01/23 [History] Amiodarone HCl 200 mg [Cordarone 200 MG] 200 mg PO DAILY 04/01/23 [History] Amlodipine Besylate [Norvasc] 10 mg PO DAILY 04/01/23 [History] Apixaban [Eliquis] 5 mg PO BID 04/01/23 [History] Aspirin EC 81 mg [Ecotrin 81 mg] 81 mg PO HS 04/01/23 [History] Cyclosporine [Restasis Multidose] 1 drop OP BID 04/01/23 [History] Empagliflozin [Jardiance] 10 mg PO DAILY 04/01/23 [History] Fenofibric Acid 35 mg PO HS 04/01/23 [History] Fluticasone Propionate [Flonase Allergy Relief] 50 mcg INTRANASAL BID 04/01/23 [History] Insulin Detemir [Levemir Flexpen] 45 units SQ BID 04/01/23 [History] Insulin Lispro [Humalog] 20 unit TID 04/01/23 [History] Isosorbide Dinitrate 30 mg PO BREAKFAST 04/01/23 [History] Montelukast Sodium 10 mg [Singulair 10 MG] 10 mg PO DAILY 04/01/23 [History] Potassium Chloride 10 meq PO DAILY 04/01/23 [History] Pregabalin 25 mg [Lyrica 25 MG] 25 mg PO BID 04/01/23 [History] Semaglutide [Ozempic] 0.5 mg SQ WEEKLY 04/01/23 [History] Spironolactone 25 mg [Aldactone 25 MG] 25 mg PO DAILY 04/01/23 [History] Tizanidine HCl 4 mg [Zanaflex 4 MG] 4 mg PO HS 04/01/23 [History] Torsemide 20 mg [Demadex 20 mg] 60 mg PO DAILY 04/01/23 [History] Tramadol HCl 50 mg [Ultram 50 mg] 50 mg PO QDP PRN 04/01/23 [History] Melatonin 1 tab PO HS 12/27/23 [History] Metoprolol Succinate 50 mg [Toprol Xl 50 MG] 1 tab PO HS 12/27/23 [History] Umeclidinium Brm/Vilanterol Tr [Anoro Ellipta 62.5-25 Mcg INH] 1 unit IH DAILY 01/21/24 [History] Hx Tetanus, Diphtheria Vaccination/Date Given: No Hx Influenza Vaccination/Date Given: No Hx Pneumococcal Vaccination/Date Given: No Travel Risk - International Travel Have you traveled outside of the country in past 3 weeks: No - Coronavirus Screening Are you exhibiting any of the following symptoms?: Yes Symptoms: Shortness of Breath Close contact with a COVID-19 positive Pt in past 14-21 Days: No - Vaccine Status Have you recieved a Covid-19 vaccination: Yes Optical Fabrication Technician: Moderna - Vaccination Dates Date of 2cond Vaccination (if applicable): 2020 Dates if Unknown: 2021 - Review of Systems Constitutional: Fever, Weakness Eyes: No Symptoms Ears, Nose, & Throat: No Symptoms Respiratory: No Symptoms Cardiac: No Symptoms Abdominal/Gastrointestinal: No Symptoms Genitourinary Symptoms: No Symptoms Musculoskeletal: No Symptoms Skin: No Symptoms Neurological: Other (Mildly confused) Psychological: No Symptoms Endocrine: No Symptoms Hematologic/Lymphatic: No Symptoms Immunological/Allergic: No Symptoms All Other Systems: Reviewed and Negative - Past Medical History Pertinent Past Medical History: Yes ENT History: Cataracts Cardiac History: Coronary Artery Disease, High Cholesterol, Hypertension, Myocardial Infarction ([place]) Respiratory History: CHF, COPD Endocrine Medical History: Diabetes Type II Musculoskeletal History: Arthritis GI Medical History: GERD History: Renal Disease Psycho-Social History: No Pertinent History Female Reproductive Disorders: No Pertinent History, Cervical Cancer Other Medical History: neuropathy - Past Surgical History Past Surgical History: Yes Neuro Surgical History: No Pertinent History Cardiac: Cardiac Catheterization, Cardiac Stent Respiratory: No Pertinent History Gastrointestinal: Cholecystectomy Genitourinary: No Pertinent History Musculoskeletal: No Pertinent History Female Surgical History: Other Other Surgical History: cervic ca , loop sx on cervix - Social History Smoking Status: Former smoker Exposure to second hand smoke: No Drug Use: none Patient Lives Alone: No - Nursing Vital Signs Nursing Vital Signs: Initial Vital Signs Pulse Rate 93 H 01/21/24 20:08 Respiratory Rate 21 01/21/24 20:08 Blood Pressure 149/59 01/21/24 20:08 O2 Sat by Pulse Oximetry 93 L 01/21/24 20:08 Pain Scale Pain Intensity 0 - Physical Exam General Appearance: mild distress, alert, anxiety, obese Eye Exam: PERRL/EOMI, eyes nml inspection Ears, Nose, Throat Exam: hearing grossly normal, normal ENT inspection, normal pharynx Neck Exam: normal inspection, non-tender, supple, full range of motion Respiratory Exam: normal breath sounds, lungs clear, airway intact, No chest tenderness, No respiratory distress Cardiovascular/Chest Exam: normal heart sounds, regular rate/rhythm Abdominal/Gastrointestinal Exam: soft, normal bowel sounds, No tenderness Rectal Exam: not done Extremity Exam: non-tender, normal range of motion, normal inspection Neurologic Exam: alert, oriented x 3, cooperative, parts room clerk II-XII nml as tested, normal mood/affect, sensation nml Skin Exam: normal color, warm, dry Lymphatic Exam: No adenopathy SpO2 Interpretation: borderline oxygenation O2 Delivery: Nasal Cannula - Course Nursing assessment & vital signs reviewed: Yes EKG Interpreted by Me: RATE (94), NORMAL AXIS, Left Bundle Branch Block, Other (Prolonged NE interval. No acute ischemic changes on today's twelve-lead EKG. Improved twelve-lead EKG when compared to the twelve-lead EKG that was performed on 12/27/2023) Ordered Tests: Active Orders 24 hr Category Date Time Status EKG-ER Only STAT Care 01/21/24 20:43 Active IV Insertion STAT Care 01/21/24 20:43 Active IV Insertion-2nd Peripheral STAT Care 01/21/24 20:47 Active Oxygen-ED Only Nasal Cannula 2 lpm Care 01/21/24 20:43 Active Pulse Oximetry (ED) STAT Care 01/21/24 20:43 Active CHEST 1 VIEW (PORTABLE) Stat Exams 01/21/24 20:44 Completed HEAD WITHOUT CONTRAST [CT] Stat Exams 01/21/24 20:45 Completed BLOOD CULTURE Stat Lab 01/21/24 20:30 Received CBC W DIFF Stat Lab 01/21/24 20:20 Completed CMP Stat Lab 01/21/24 20:20 Completed CULTURE,URINE Stat Lab 01/21/24 21:01 Received Lactic Acid Stat Lab 01/21/24 20:43 Completed MAGNESIUM Stat Lab 01/21/24 20:20 Completed NT PRO BNPII Stat Lab 01/21/24 20:20 Completed PROTIME WITH INR Stat Lab 01/21/24 20:20 Completed TROPONIN Q4H Lab 01/21/24 20:20 Completed TROPONIN Q4H Lab 01/22/24 00:45 Ordered TROPONIN Q4H Lab 01/22/24 04:45 Ordered UA W/RFX UR CULTURE Stat Lab 01/21/24 21:01 Completed Medication Summary Generic Name Dose Route Start Last Admin Trade Name Freq PRN Reason Stop Dose Admin Sodium Chloride 1,000 mls @ 100 mls/hr 01/21/24 20:45 01/21/24 20:55 Sodium Chloride 0.9% 1000 Ml IV 02/20/24 20:44 100 mls/hr .Q10H AVINASH Administration Potassium Chloride/Dextrose/Sod Cl 1,000 mls @ 100 mls/hr 01/21/24 23:00 01/21/24 23:07 D5w/0.45ns W/ 20meq Kcl 1000 Ml IV 02/20/24 22:59 Not Given .Q10H AVINASH Discontinued Medications Generic Name Dose Route Start Last Admin Trade Name Freq PRN Reason Stop Dose Admin Ceftriaxone Sodium 1 gm in 100 mls @ 200 mls/hr 01/21/24 23:26 Rocephin 1 Gm / 100 Ml Nacl IV 01/21/24 23:55 STAT ONE Lab/Rad Data: Laboratory Result Diagrams 01/21/24 20:20 01/21/24 20:20 Laboratory Results 01/21/24 01/21/24 01/21/24 Range/Units 21:20 21:01 20:43 WBC (4.0-10.5) x10^3/uL RBC (4.1-5.4) x10^6/uL Hgb (12.0-16.0) g/dL Hct (35-47) % MCV (78-100) fL MCH (26-32) pg MCHC (32-36) g/dL RDW (11.5-14.0) % Plt Count (150-450) x10^3/uL MPV (7.5-11.0) fL Gran % (36.0-66.0) % Immature Gran % (Auto) (0.00-0.4) % Nucleat RBC Rel Count (0.00-0.1) % Eos # (Auto) (0-0.5) x10^3/uL Immature Gran # (Auto) (0.00-0.03) x10^3u/L Absolute Lymphs (auto) (1.0-4.6) x10^3/uL Absolute Monos (auto) (0.0-1.3) x10^3/uL Absolute Nucleated RBC (0.00-0.01) x10^3u/L Lymphocytes % (24.0-44.0) % Monocytes % (0.0-12.0) % Eosinophils % (0.00-5.0) % Basophils % (0.0-0.4) % Absolute Granulocytes (1.4-6.9) x10^3/uL Basophils # (0-0.4) x10^3/uL PT (9.4-12.5) SECONDS INR (0.8-3.0) Sodium (137-145) mmol/L Potassium (3.5-5.1) mmol/L Chloride (98-107) mmol/L Carbon Dioxide (22-30) mmol/L Anion Gap (5-15) MEQ/L BUN (7-17) mg/dL Creatinine (0.52-1.04) mg/dL Estimated GFR ML/MIN Glucose (74-106) mg/dL Lactic Acid 2.3 H (0.4-2.0) Calcium (8.4-10.2) mg/dL Magnesium (1.6-2.3) mg/dL Total Bilirubin (0.2-1.3) mg/dL AST (14-36) U/L ALT (0-35) U/L Alkaline Phosphatase (38-126) U/L Troponin I (0.000-0.034) ng/mL NT-Pro-B Natriuret Pep (<300) pg/mL Serum Total Protein (6.3-8.2) g/dL Albumin (3.5-5.0) g/dL Urine Color Yellow (Yellow) Urine Appearance Cloudy A (Clear) Urine pH 5.5 (4.6-8.0) Ur Specific [place] 1.015 (1.005-1.030) Urine Protein Trace A (Negative) Urine Glucose (UA) >=1000 A (Negative) mg/dL Urine Ketones Negative (Negative) Urine Blood Large A (Negative) Urine Nitrite Positive A (Negative) Urine Bilirubin Negative (Negative) Urine Urobilinogen 0.2 (0.2) mg/dL Ur Leukocyte Esterase Moderate A (Negative) U Hyaline Cast (Auto) NONE SEEN (0-2) /LPF Urine Microscopic RBC 11-20 A (0-5) /HPF Urine Microscopic WBC >100 A (0-5) /HPF Ur Epithelial Cells None Seen (None Seen) /HPF Urine Bacteria Many A (None Seen) /HPF Urine Culture Reflexed YES (NO) Influenza Type A Ag NEGATIVE (NEGATIVE) Influenza Type B Ag NEGATIVE (NEGATIVE) RSV (PCR) NEGATIVE (NEGATIVE) SARS-CoV-2 (PCR) NEGATIVE (NEGATIVE) Slides for Path Review 01/21/24 01/21/24 01/21/24 Range/Units 20:20 20:20 20:20 WBC (4.0-10.5) x10^3/uL RBC (4.1-5.4) x10^6/uL Hgb (12.0-16.0) g/dL Hct (35-47) % MCV (78-100) fL MCH (26-32) pg MCHC (32-36) g/dL RDW (11.5-14.0) % Plt Count (150-450) x10^3/uL MPV (7.5-11.0) fL Gran % (36.0-66.0) % Immature Gran % (Auto) (0.00-0.4) % Nucleat RBC Rel Count (0.00-0.1) % Eos # (Auto) (0-0.5) x10^3/uL Immature Gran # (Auto) (0.00-0.03) x10^3u/L Absolute Lymphs (auto) (1.0-4.6) x10^3/uL Absolute Monos (auto) (0.0-1.3) x10^3/uL Absolute Nucleated RBC (0.00-0.01) x10^3u/L Lymphocytes % (24.0-44.0) % Monocytes % (0.0-12.0) % Eosinophils % (0.00-5.0) % Basophils % (0.0-0.4) % Absolute Granulocytes (1.4-6.9) x10^3/uL Basophils # (0-0.4) x10^3/uL PT 11.5 (9.4-12.5) SECONDS INR 1.06 (0.8-3.0) Sodium (137-145) mmol/L Potassium (3.5-5.1) mmol/L Chloride (98-107) mmol/L Carbon Dioxide (22-30) mmol/L Anion Gap (5-15) MEQ/L BUN (7-17) mg/dL Creatinine (0.52-1.04) mg/dL Estimated GFR ML/MIN Glucose (74-106) mg/dL Lactic Acid (0.4-2.0) Calcium (8.4-10.2) mg/dL Magnesium (1.6-2.3) mg/dL Total Bilirubin (0.2-1.3) mg/dL AST (14-36) U/L ALT (0-35) U/L Alkaline Phosphatase (38-126) U/L Troponin I 0.239 H* (0.000-0.034) ng/mL NT-Pro-B Natriuret Pep 2160 (<300) pg/mL Serum Total Protein (6.3-8.2) g/dL Albumin (3.5-5.0) g/dL Urine Color (Yellow) Urine Appearance (Clear) Urine pH (4.6-8.0) Ur Specific [place] (1.005-1.030) Urine Protein (Negative) Urine Glucose (UA) (Negative) mg/dL Urine Ketones (Negative) Urine Blood (Negative) Urine Nitrite (Negative) Urine Bilirubin (Negative) Urine Urobilinogen (0.2) mg/dL Ur Leukocyte Esterase (Negative) U Hyaline Cast (Auto) (0-2) /LPF Urine Microscopic RBC (0-5) /HPF Urine Microscopic WBC (0-5) /HPF Ur Epithelial Cells (None Seen) /HPF Urine Bacteria (None Seen) /HPF Urine Culture Reflexed (NO) Influenza Type A Ag (NEGATIVE) Influenza Type B Ag (NEGATIVE) RSV (PCR) (NEGATIVE) SARS-CoV-2 (PCR) (NEGATIVE) Slides for Path Review 01/21/24 01/21/24 Range/Units 20:20 20:20 WBC 12.0 H (4.0-10.5) x10^3/uL RBC 4.02 L (4.1-5.4) x10^6/uL Hgb 11.1 L (12.0-16.0) g/dL Hct 36.1 (35-47) % MCV 89.8 (78-100) fL MCH 27.6 (26-32) pg MCHC 30.7 L (32-36) g/dL RDW 16.0 H (11.5-14.0) % Plt Count 294 (150-450) x10^3/uL MPV 11.3 H (7.5-11.0) fL Gran % 85.8 H (36.0-66.0) % Immature Gran % (Auto) 0.7 H (0.00-0.4) % Nucleat RBC Rel Count 0.0 (0.00-0.1) % Eos # (Auto) 0.11 (0-0.5) x10^3/uL Immature Gran # (Auto) 0.08 H (0.00-0.03) x10^3u/L Absolute Lymphs (auto) 0.57 L (1.0-4.6) x10^3/uL Absolute Monos (auto) 0.88 (0.0-1.3) x10^3/uL Absolute Nucleated RBC 0.00 (0.00-0.01) x10^3u/L Lymphocytes % 4.8 L (24.0-44.0) % Monocytes % 7.3 (0.0-12.0) % Eosinophils % 0.9 (0.00-5.0) % Basophils % 0.5 (0.0-0.4) % Absolute Granulocytes 10.29 H (1.4-6.9) x10^3/uL Basophils # 0.06 (0-0.4) x10^3/uL PT (9.4-12.5) SECONDS INR (0.8-3.0) Sodium 133 L (137-145) mmol/L Potassium 3.7 (3.5-5.1) mmol/L Chloride 95 L (98-107) mmol/L Carbon Dioxide 30 (22-30) mmol/L Anion Gap 11.8 (5-15) MEQ/L BUN 37 H (7-17) mg/dL Creatinine 1.76 H (0.52-1.04) mg/dL Estimated GFR 30.4 ML/MIN Glucose 222 H (74-106) mg/dL Lactic Acid (0.4-2.0) Calcium 9.2 (8.4-10.2) mg/dL Magnesium 2.1 (1.6-2.3) mg/dL Total Bilirubin 0.60 (0.2-1.3) mg/dL AST 51 H (14-36) U/L ALT 31 (0-35) U/L Alkaline Phosphatase 90 (38-126) U/L Troponin I (0.000-0.034) ng/mL NT-Pro-B Natriuret Pep (<300) pg/mL Serum Total Protein 7.8 (6.3-8.2) g/dL Albumin 4.1 (3.5-5.0) g/dL Urine Color (Yellow) Urine Appearance (Clear) Urine pH (4.6-8.0) Ur Specific [place] (1.005-1.030) Urine Protein (Negative) Urine Glucose (UA) (Negative) mg/dL Urine Ketones (Negative) Urine Blood (Negative) Urine Nitrite (Negative) Urine Bilirubin (Negative) Urine Urobilinogen (0.2) mg/dL Ur Leukocyte Esterase (Negative) U Hyaline Cast (Auto) (0-2) /LPF Urine Microscopic RBC (0-5) /HPF Urine Microscopic WBC (0-5) /HPF Ur Epithelial Cells (None Seen) /HPF Urine Bacteria (None Seen) /HPF Urine Culture Reflexed (NO) Influenza Type A Ag (NEGATIVE) Influenza Type B Ag (NEGATIVE) RSV (PCR) (NEGATIVE) SARS-CoV-2 (PCR) (NEGATIVE) Slides for Path Review YES - Progress Progress: improved, re-examined Air Movement: fair Progress Note: 01/21/24 21:00 This patient's medical issue is 1 of moderate to high complexity. The level of complexity in the workup performed is based on review of the patient's past medical history, review of the patient's medication list, review of the patient drug allergy list, history present illness and physical findings on examination. The workup in this patient includes placement of intravenous lines, infusion of low rate normal saline solution, chest x-ray, respiratory therapy evaluation, CBC, CMP, troponin level, twelve-lead EKG, BNP level, viral swabs and monotest. We also obtained blood cultures 01/21/24 22:19 Chest x-ray was interpreted by the radiologist. There is mild clearing of previous bilateral mid to lower lung interstitial alveolar opacities. There is mild residual disease present. No other acute or new findings. CT scan of the head without contrast was interpreted by the radiologist and I reviewed the impression. Impression states nonacute senile brain with remote lacunar infarct left basal ganglia. 01/21/24 23:18 I interpreted the patient's laboratory data results. The patient has a urinary tract infection. Patient also has an elevated troponin level. 01/21/24 23:25 I reviewed admission charts from 12/27/2023. Patient has had Rocephin in the past without any adverse reactions. We will place her on 1 g intravenous Rocephin here in the emergency department to treat her urinary tract infection. 01/22/24 00:02 We contacted [facility]. Patient history, presenting complaint, physical findings, laboratory and radiographic study results were discussed with the transfer center. Dr. Goldstein in the emergency de partment is the accepting physician. Patient is auto accepted. Blood Culture(s) Obtained: Yes Counseled pt/family regarding: lab results, diagnosis, rad results Medical Desision Making - Independent Historian Additional History obtained from: Pediatric Dietician/EMT - Diagnostic Testing Diagnostic test were ordered, analyzed, and reviewed by me: Yes - Risk of complications The pt has a high risk of morbidity or mortality based on: Decision regarding hospitilization or escalation of hosp level of care - Departure Departure Disposition: Transfer Clinical Impression: UTI (urinary tract infection), Elevated troponin, Acute renal failure superimp osed on chronic kidney disease, Fever, Leukocytosis, Lactic acidemia Condition: Fair Critical Care Time: No Referrals: KEVON HASTINGS MD [Primary Care Provider] - Follow up/PCP as directed
[2024-01-21] MEDS ORDERED: Sodium Chloride 0.9% 1000 ML 1,000 ML ONE (20:52)
[2024-01-21] MEDS: Sodium Chloride 0.9% 1000 ML 1,000 ML IV SCH (20:55)
[2024-01-21 20:56] LABS: Absolute Neutrophil Ct (ANC) 10.29 x10^3/uL (1.4-6.9); BASOPHIL % 0.5 % (0.0-0.4); Basophil (Absolute #) 0.06 x10^3/uL (0-0.4); Eosinophil % 0.9 % (0.00-5.0); Eosinophil (Absolute #) 0.11 x10^3/uL (0-0.5); Hematocrit 36.1 % (35-47); Hemoglobin 11.1 g/dL (12.0-16.0); IMMATURE GRAN # 0.08 x10^3u/L (0.00-0.03); IMMATURE GRAN % 0.7 % (0.00-0.4); Lymphocyte (Absolute #) 0.57 x10^3/uL (1.0-4.6); Lymphocytes % 4.8 % (24.0-44.0); Mean Cell Volume 89.8 fL (78-100); Mean Corpuscular Hemoglobin 27.6 pg (26-32); Mean Corpuscular Hgb Concent. 30.7 g/dL (32-36); Mean Platelet Volume 11.3 fL (7.5-11.0); Monocyte (Absolute #) 0.88 x10^3/uL (0.0-1.3); Monocytes % 7.3 % (0.0-12.0); Neutrophil % 85.8 % (36.0-66.0); Platelet Count 294 x10^3/uL (150-450); Red Blood Count 4.02 x10^6/uL (4.1-5.4)
[2024-01-21 21:08] LABS: ALBUMIN 4.1 g/dL (3.5-5.0); ANION GAP 11.8 MEQ/L (5-15); BILIRUBIN,TOTAL 0.6 mg/dL (0.2-1.3); Calcium 9.2 mg/dL (8.4-10.2); Creatinine 1 1.76 mg/dL (0.52-1.04); EST GLOMERULAR FILTRATION RATE 30.4 ML/MIN; INR 1.06 (0.8-3.0); MAGNESIUM 2.1 mg/dL (1.6-2.3); PROTIME 11.5 SECONDS (9.4-12.5); Potassium 3.7 mmol/L (3.5-5.1); Total Protein 7.8 g/dL (6.3-8.2)
[2024-01-21 21:32] LABS: Appearance Cloudy (Clear); Bacteria Many /HPF (None Seen); Bilirubin Negative (Negative); Blood Large (Negative); Epithelial Cells None Seen /HPF (None Seen); Glucose, Urine >=1000 mg/dL (Negative); Hyaline Casts NONE SEEN /LPF (0-2); Ketones Negative (Negative); Leukocyte Esterase Moderate (Negative); Nitrite Positive (Negative); Ph 5.5 (4.6-8.0); Protein,Urine Dip Trace (Negative); Specific Gravity 1.015 (1.005-1.030); Urobilinogen 0.2 mg/dL (0.2); WBC >100 /HPF (0-5)
[2024-01-21 21:33] LABS: ADD URINE CULTURE? YES (NO)
--- NOTE | 2024-01-21 22:00 | XRAY ---
Indication: Fever. Short of breath. Comparison: December 27, 2023 Portable chest demonstrates mild clearing previous bilateral mid to lower lung interstitial alveolar opacities with mild residual. Heart not enlarged. No new/acute findings.
--- NOTE | 2024-01-21 22:06 | XRAY ---
Indication: Confusion. Status post fall. Multiple contiguous axial images obtained through the head without contrast. Comparison: None Age-appropriate global atrophy and minimal periventricular degenerative micro-ischemia bilaterally. Remote lacunar infarct left basal ganglia. No acute intracranial hemorrhage, abnormal extra-axial fluid collection, or mass effect. Fourth ventricle is midline without hydrocephalus. Bony calvarium intact with incidental hyperostosis frontalis interna. Visualized paranasal sinuses and mastoid air cells are clear. Impression: Nonacute senile brain with remote lacunar infarct left basal ganglia.
[2024-01-21 22:26] LABS: Slide Review 1 YES
[2024-01-21 22:35] LABS: INFLUENZA A NEGATIVE (NEGATIVE); INFLUENZA B NEGATIVE (NEGATIVE); RESPIRATORY SYNCTIAL VIRUS NEGATIVE (NEGATIVE); SARS-CoV-2 Xpert Express NEGATIVE (NEGATIVE)
[2024-01-21] MEDS: D5W/0.45NS W/ 20mEq KCl 1000 ML 1,000 ML IV SCH (23:07)
[2024-01-22] MEDS ORDERED: ROCEPHIN 1 GM / 100 ML NaCl 1 GM/100 ML IVPB IV ONE (00:01)
[2024-01-22] MEDS: ROCEPHIN 1 GM / 100 ML NaCl 1 GM/100 ML IVPB IV ONE (00:11)
[2024-01-22 01:17] VITALS: O2SAT 95
[2024-01-22 02:00] VITALS: BP 172/72; PULSE 86; RESP 22; TEMP 99.2
== END 2024-01-22 01:35 | disposition short-term general hospital (02) ==
LOC: ED 20:03
DX: N39.0 Urinary tract infection, site not specified (principal); R77.9 Abnormality of plasma protein, unspecified; N17.9 Acute kidney failure, unspecified; I13.0 Hypertensive heart and chronic kidney disease with heart failure and stage 1 through stage 4 chronic kidney disease, or unspecified chronic kidney disease; I50.9 Heart failure, unspecified; E11.22 Type 2 diabetes mellitus with diabetic chronic kidney disease; N18.9 Chronic kidney disease, unspecified; R50.9 Fever, unspecified; D72.829 Elevated white blood cell count, unspecified; E87.20 Acidosis, unspecified; R06.02 Shortness of breath; E78.5 Hyperlipidemia, unspecified; E11.42 Type 2 diabetes mellitus with diabetic polyneuropathy; Z79.01 Long term (current) use of anticoagulants; Z79.84 Long term (current) use of oral hypoglycemic drugs; Z79.4 Long term (current) use of insulin; Z79.85 Long-term (current) use of injectable non-insulin antidiabetic drugs; Z79.899 Other long term (current) drug therapy; Z99.81 Dependence on supplemental oxygen
CPT/HCPCS: 0241U; 36000; 36415; 70450; 71045; 80053; 81001; 83605; 83735; 83880; 84484; 85025; 85610; 87040; 87077; 87086; 87186; 93005; 94760; 99284; J0696

== ENCOUNTER 2024-05-11 14:37 | Inpatient (IN) | payer MEDICARE ==
[2024-05-11] MEDS ORDERED: Sterile H2O 10 ml IJ ONE (14:53)
[2024-05-11] MEDS ORDERED: BABY ASPIRIN 81 MG CHEW ONE (14:54)
[2024-05-11] MEDS ORDERED: solu-MEDROL ONE (14:54)
[2024-05-11] MEDS: BABY ASPIRIN 81 MG CHEW PO ONE (14:55)
[2024-05-11] MEDS: solu-MEDROL 125 MG, Sterile H2O 10 ml 2 ML IV ONE (14:56)
[2024-05-11] MEDS ORDERED: PROVENTIL 2.5 MG/3 ML NEB IH ONE (15:12)
[2024-05-11] MEDS: PROVENTIL 2.5 MG/3 ML NEB IH ONE (15:15)
--- NOTE | 2024-05-11 15:16 | XRAY ---
Indication: Short of breath and fatigue. Comparison: January 21, 2024 Portable chest demonstrate new moderate left base pneumonic infiltrate with tiny effusion. Remaining heart and right lung unremarkable. Bony thorax intact again with osteopenia and degenerative changes.
[2024-05-11 15:26] LABS: Hematocrit 34.5 % (34.1-44.9); Hemoglobin 10.9 g/dL (11.2-15.7); Mean Cell Volume 85.2 fL (79.4-94.8); Mean Corpuscular Hemoglobin 26.9 pg (25.6-32.2); Mean Corpuscular Hgb Concent. 31.6 g/dL (32.2-35.5); Mean Platelet Volume 11.4 fL (9.4-12.3); Platelet Count 346 x10^3/uL (182-369); Red Blood Count 4.05 x10^6/uL (3.93-5.22); Red Cell Distribution Width 16.3 % (11.7-14.4)
[2024-05-11 15:27] LABS: Appearance Clear (Clear); Bilirubin Negative (Negative); Blood Negative (Negative); Glucose, Urine >=1000 mg/dL (Negative); Ketones Negative (Negative); Leukocyte Esterase Negative (Negative); Nitrite Negative (Negative); Ph 5.5 (4.6-8.0); Protein,Urine Dip 30 (Negative); Urobilinogen 0.2 mg/dL (0.2)
[2024-05-11 15:29] LABS: Bacteria None Seen /HPF (None Seen); Epithelial Cells Rare /HPF (None Seen); Hyaline Casts NONE SEEN /LPF (0-2); RBC 0-2 /HPF (0-5); WBC 0-2 /HPF (0-5)
[2024-05-11 15:31] LABS: ADD URINE CULTURE? NO (NO)
[2024-05-11 15:41] LABS: ANION GAP 12.3 MEQ/L (5-15); BILIRUBIN,TOTAL 0.8 mg/dL (0.2-1.3); Calcium 9.2 mg/dL (8.4-10.2); Creatinine 1 1.58 mg/dL (0.52-1.04); EST GLOMERULAR FILTRATION RATE 34.4 ML/MIN; Potassium 3.9 mmol/L (3.5-5.1); Total Protein 7.7 g/dL (6.3-8.2)
--- NOTE | 2024-05-11 15:42 | ERPHSYRPT ---
- History of Present Illness Time Seen by Provider: 05/11/24 14:38 Source: patient Exam Limitations: no limitations Patient Subjective Stated Complaint: SOB Triage Nursing Assessment: 74 yr old female pt arrives to ED via EMS. Pt presents with complaints of SOB. Pt states that her symptoms began last night. Pt tried a breathing tx last night and this morning and it did not help. Pt is normally on 3L but brought in on 4L due to O2 in the low 90's. Pt states she has a hx of CHD, COPD and Afib. Pt reports being transferred a month ago due to a heart attack. Pt is febrile at 100.7 and is warm to touch. Pt's lungs sound diminished bilaterally. Pt is alert, oriented and not in distress. Physician History: Patient is here with shortness of breath that started last night. Patient has been trying to take breathing treatments last night and this morning it did not help. Normally on 3 L of oxygen but is on 4 L now due to low 90s. History of CHF, COPD and A-fib. States that she was here approximately a month ago in transfer due to a heart attack. Patient's fevers up to 100.7 today in triage. No falls or other trauma. She is able to give a history. Does appear short of breath. Timing/Duration: gradual onset Allergies/Adverse Reactions: cefaclor Allergy (Verified 05/11/24 14:42) ciprofloxacin [From Cipro] Allergy (Verified 05/11/24 14:42) gabapentin [From Neurontin] Allergy (Verified 05/11/24 14:42) glipizide Allergy (Verified 05/11/24 14:42) guaifenesin [From Robitussin] Allergy (Verified 05/11/24 14:42) hydrocodone Allergy (Verified 05/11/24 14:42) lisinopril Allergy (Verified 05/11/24 14:42) lovastatin Allergy (Verified 05/11/24 14:42) metoprolol Allergy (Verified 05/11/24 14:42) naproxen [From Aleve] Allergy (Verified 05/11/24 14:42) nifedipine [From Procardia] Allergy (Verified 05/11/24 14:42) paroxetine Allergy (Verified 05/11/24 14:42) Penicillins Allergy (Verified 05/11/24 14:42) procaine [From Novocain] Allergy (Verified 05/11/24 14:42) sulfacetamide Allergy (Verified 05/11/24 14:42) tetracycline Allergy (Verified 05/11/24 14:42) theophylline Allergy (Verified 05/11/24 14:42) ticagrelor [From Brilinta] Allergy (Verified 05/11/24 14:42) azithromycin [From Zithromax] Adverse Reaction (Mild, Verified 05/11/24 14:42) Nausea not true allergy Home Medications: RX: Albuterol Sulfate [Proair Respiclick] 1 inh IH DAILY 04/01/23 [History] RX: Allopurinol 300 mg [Zyloprim 300 mg] 300 mg PO HS 04/01/23 [History] RX: Amiodarone HCl 200 mg [Cordarone 200 MG] 200 mg PO DAILY 04/01/23 [History] RX: Amlodipine Besylate [Norvasc] 10 mg PO DAILY 04/01/23 [History] RX: Apixaban [Eliquis] 5 mg PO BID 04/01/23 [History] RX: Aspirin EC 81 mg [Ecotrin 81 mg] 81 mg PO HS 04/01/23 [History] RX: Cyclosporine [Restasis Multidose] 1 drop OP BID 04/01/23 [History] RX: Empagliflozin [Jardiance] 10 mg PO DAILY 04/01/23 [History] RX: Fenofibric Acid 35 mg PO HS 04/01/23 [History] RX: Fluticasone Propionate [Flonase Allergy Relief] 50 mcg INTRANASAL BID 04/01/23 [History] RX: Insulin Detemir [Levemir Flexpen] 45 units SQ BID 04/01/23 [History] RX: Insulin Lispro [Humalog] 20 unit TID 04/01/23 [History] RX: Isosorbide Dinitrate 30 mg PO BREAKFAST 04/01/23 [History] RX: Montelukast Sodium 10 mg [Singulair 10 MG] 10 mg PO DAILY 04/01/23 [ History] RX: Potassium Chloride 10 meq PO DAILY 04/01/23 [History] RX: Pregabalin 25 mg [Lyrica 25 MG] 25 mg PO BID 04/01/23 [History] RX: Semaglutide [Ozempic] 0.5 mg SQ WEEKLY 04/01/23 [History] RX: Spironolactone 25 mg [Aldactone 25 MG] 25 mg PO DAILY 04/01/23 [History] RX: Tizanidine HCl 4 mg [Zanaflex 4 MG] 4 mg PO HS 04/01/23 [History] RX: Torsemide 20 mg [Demadex 20 mg] 60 mg PO DAILY 04/01/23 [History] RX: Tramadol HCl 50 mg [Ultram 50 mg] 50 mg PO QDP PRN 04/01/23 [History] RX: Melatonin 1 tab PO HS 12/27/23 [History] RX: Metoprolol Succinate 50 mg [Toprol Xl 50 MG] 1 tab PO HS 12/27/23 [History] Umeclidinium Brm/Vilanterol Tr [Anoro Ellipta 62.5-25 Mcg INH] 1 unit IH DAILY 01/21/24 [History] Hx Tetanus, Diphtheria Vaccination/Date Given: No Hx Influenza Vaccination/Date Given: No Hx Pneumococcal Vaccination/Date Given: No Immunizations Up to Date: No Travel Risk - International Travel Have you traveled outside of the country in past 3 weeks: No - Emerging Infectious Disease Are you exhibiting symptoms associated with any current EIDs: Yes Symptoms: Fever, Shortness of Breath - Past Medical History Pertinent Past Medical History: Yes Neurological History: No Pertinent History ENT History: Cataracts Cardiac History: Coronary Artery Disease, High Cholesterol, Hypertension, Myocardial Infarction (DC) Respiratory History: CHF, COPD Endocrine Medical History: Diabetes Type II Musculoskeletal History: Arthritis GI Medical History: GERD History: Renal Disease Psycho-Social History: No Pertinent History Female Reproductive Disorders: No Pertinent History, Cervical Cancer Other Medical History: neuropathy - Past Surgical History Past Surgical History: Yes Neuro Surgical History: No Pertinent History Cardiac: Cardiac Catheterization, Cardiac Stent Respiratory: No Pertinent History Gastrointestinal: Cholecystectomy Genitourinary: No Pertinent History Musculoskeletal: No Pertinent History Female Surgical History: Other Other Surgical History: cervic ca, loop sx on cervix - Social History Smoking Status: Former smoker Exposure to second hand smoke: No Drug Use: none Patient Lives Alone: No - Social Determinants of Health Will the patient participate in the screening: Declined to provide - Nursing Vital Signs Nursing Vital Signs: Initial Vital Signs Temperature 100.7 F 05/11/24 14:41 Pulse Rate 69 05/11/24 14:41 Respiratory Rate 22 05/11/24 14:41 Blood Pressure 142/82 05/11/24 14:41 O2 Sat by Pulse Oximetry 93 L 05/11/24 14:41 Pain Scale Pain Intensity 3 - Physical Exam SpO2: 94 Ordered Tests: Active Orders 24 hr Category Date Time Status Admit as Inpatient ROUTINE Care 05/11/24 16:55 Active Call Admit Doctor for Orders ON ADMISSION Care 05/11/24 16:55 Active Code Status Order ROUTINE Care 05/11/24 16:55 Active EKG-ER Only STAT Care 05/11/24 14:47 Active IV Insertion STAT Care 05/11/24 14:47 Active Telemetry q6h Care 05/11/24 16:56 Active Heart-Healthy Diet Diet 05/12/24 Breakfast Active CHEST 1 VIEW (PORTABLE) Stat Exams 05/11/24 14:47 Completed BLOOD CULTURE Stat Lab 05/11/24 16:26 Received CBC W DIFF Stat Lab 05/11/24 15:15 Results CK-Creatinine Phosphokinase Stat Lab 05/11/24 14:47 Completed CMP Stat Lab 05/11/24 14:47 Completed Manual Differential NC Stat Lab 05/11/24 15:15 Results NT PRO BNPII Stat Lab 05/11/24 15:15 Completed PROCALCITONIN Stat Lab 05/11/24 15:15 Completed Pathologist Review Stat Lab 05/11/24 15:15 Results TROPONIN Q4H Lab 05/11/24 15:15 Completed TROPONIN Q4H Lab 05/11/24 18:10 Received TROPONIN Q4H Lab 05/11/24 23:00 Ordered UA W/RFX UR CULTURE Stat Lab 05/11/24 15:05 Completed Pulse Oximetry CONTINUOUS RT 05/11/24 16:56 Active Respiratory Therapy Consult ONCE RT 05/11/24 16:56 Active Transfer Order Routine Transfer 05/11/24 Ordered Medication Summary Discontinued Medications Generic Name Dose Route Start Last Admin Trade Name Freq PRN Reason Stop Dose Admin Acetaminophen 1,000 mg 05/11/24 15:42 05/11/24 16:22 Acetaminophen 500 Mg Tablet PO 05/11/24 15:43 1,000 mg STAT STA Administration Acetaminophen Confirm 05/11/24 16:21 Acetaminophen 500 Mg Tablet Administered 05/11/24 16:22 Dose 1,000 mg .ROUTE .STK-MED ONE Albuterol Sulfate 2.5 mg 05/11/24 14:47 05/11/24 15:15 Albuterol Sulfate 2.5 Mg/3 Ml Neb IH 05/11/24 14:48 2.5 mg STAT ONE Administration Albuterol Sulfate Confirm 05/11/24 15:12 Albuterol Sulfate 2.5 Mg/3 Ml Neb Administered 05/11/24 15:13 Dose 2.5 mg IH .STK-MED ONE Aspirin 324 mg 05/11/24 14:48 05/11/24 14:55 Aspirin 81 Mg Tab.Chew PO 05/11/24 14:49 324 mg STAT ONE Administration Aspirin Confirm 05/11/24 14:54 Aspirin 81 Mg Tab.Chew Administered 05/11/24 14:55 Dose 324 mg .ROUTE .STK-MED ONE Methylprednisolone Sodium 0 mg 05/11/24 14:47 05/11/24 14:56 Succinate 125 mg/ Sterile IV 05/11/24 14:48 125 mg Water 2 ml STAT ONE Administration Azithromycin 500 mg in 250 mls @ 250 mls/hr 05/11/24 15:38 05/11/24 16:23 Zithromax 500 Mg/ 250 Ml Nacl Premix IV 05/11/24 16:37 250 mls/hr STAT ONE Administration Azithromycin Confirm 05/11/24 15:44 Zithromax 500 Mg/ 250 Ml Nacl Premix Administered 05/11/24 15:45 Dose 500 mg in 250 mls @ ud IV .STK-MED ONE Methylprednisolone Sodium Succinate Confirm 05/11/24 14:54 Methylprednis Sod Succ 125 Mg/2 Ml Vial Administered 05/11/24 14:55 Dose 125 mg .ROUTE .STK-MED ONE Sterile Water Confirm 05/11/24 14:53 Water For Injection,Sterile 10 Ml Vial Administered 05/11/24 14:54 Dose 10 ml IJ .STK-MED ONE Lab/Rad Data: Laboratory Result Diagrams 05/11/24 15:15 05/11/24 14:47 Laboratory Results 05/11/24 05/11/24 05/11/24 Range/Units 15:17 15:15 15:15 WBC (3.98-10.04) x10^3/uL RBC (3.93-5.22) x10^6/uL Hgb (11.2-15.7) g/dL Hct (34.1-44.9) % MCV (79.4-94.8) fL MCH (25.6-32.2) pg MCHC (32.2-35.5) g/dL RDW (11.7-14.4) % Plt Count (182-369) x10^3/uL MPV (9.4-12.3) fL Segmented Neutrophils (1.56-6.13) % Band Neutrophils (0.0-2.0) % Lymphocytes (Manual) (24-44) % Metamyelocytes % Platelet Estimate (NORMAL) RBC Morphology Macrocytosis Smear Path Review Sodium (135-145) mmol/L Potassium (3.5-5.1) mmol/L Chloride (98-107) mmol/L Carbon Dioxide (22-30) mmol/L Anion Gap (5-15) MEQ/L BUN (7-17) mg/dL Creatinine (0.52-1.04) mg/dL Estimated GFR ML/MIN Glucose (74-106) mg/dL Calcium (8.4-10.2) mg/dL Total Bilirubin (0.2-1.3) mg/dL AST (14-36) U/L ALT (0-35) U/L Alkaline Phosphatase (38-126) U/L Creatine Kinase (30-135) U/L Troponin I 0.070 H* (0.000-0.033) ng/mL NT-Pro-B Natriuret Pep 4130 (<300) pg/mL Serum Total Protein (6.3-8.2) g/dL Albumin (3.5-5.0) g/dL Procalcitonin 4.400 H* (0.030-0.080) ng/mL Urine Color (Yellow) Urine Appearance (Clear) Urine pH (4.6-8.0) Ur Specific [place] (1.005-1.030) Urine Protein (Negative) Urine Glucose (UA) (Negative) mg/dL Urine Ketones (Negative) Urine Blood (Negative) Urine Nitrite (Negative) Urine Bilirubin (Negative) Urine Urobilinogen (0.2) mg/dL Ur Leukocyte Esterase (Negative) U Hyaline Cast (Auto) (0-2) /LPF Urine Microscopic RBC (0-5) /HPF Urine Microscopic WBC (0-5) /HPF Ur Epithelial Cells (None Seen) /HPF Urine Bacteria (None Seen) /HPF Urine Culture Reflexed (NO) Influenza Type A Ag NEGATIVE (NEGATIVE) Influenza Type B Ag NEGATIVE (NEGATIVE) RSV (PCR) NEGATIVE (NEGATIVE) SARS-CoV-2 (PCR) NEGATIVE (NEGATIVE) 05/11/24 05/11/24 05/11/24 Range/Units 15:15 15:05 14:47 WBC 34.0 H* (3.98-10.04) x10^3/uL RBC 4.05 (3.93-5.22) x10^6/uL Hgb 10.9 L (11.2-15.7) g/dL Hct 34.5 (34.1-44.9) % MCV 85.2 (79.4-94.8) fL MCH 26.9 (25.6-32.2) pg MCHC 31.6 L (32.2-35.5) g/dL RDW 16.3 H (11.7-14.4) % Plt Count 346 (182-369) x10^3/uL MPV 11.4 (9.4-12.3) fL Segmented Neutrophils 92 H (1.56-6.13) % Band Neutrophils 1 (0.0-2.0) % Lymphocytes (Manual) 6 L (24-44) % Metamyelocytes 1 % Platelet Estimate NORMAL (NORMAL) RBC Morphology ABNORMAL Macrocytosis 1+ Smear Path Review Pending Sodium 137 (135-145) mmol/L Potassium 3.9 (3.5-5.1) mmol/L Chloride 99 (98-107) mmol/L Carbon Dioxide 30 (22-30) mmol/L Anion Gap 12.3 (5-15) MEQ/L BUN 34 H (7-17) mg/dL Creatinine 1.58 H (0.52-1.04) mg/dL Estimated GFR 34.4 ML/MIN Glucose 170 H (74-106) mg/dL Calcium 9.2 (8.4-10.2) mg/dL Total Bilirubin 0.80 (0.2-1.3) mg/dL AST 38 H (14-36) U/L ALT 24 (0-35) U/L Alkaline Phosphatase 73 (38-126) U/L Creatine Kinase 481 H (30-135) U/L Troponin I (0.000-0.033) ng/mL NT-Pro-B Natriuret Pep (<300) pg/mL Serum Total Protein 7.7 (6.3-8.2) g/dL Albumin 4.0 (3.5-5.0) g/dL Procalcitonin (0.030-0.080) ng/mL Urine Color Yellow (Yellow) Urine Appearance Clear (Clear) Urine pH 5.5 (4.6-8.0) Ur Specific [place] 1.020 (1.005-1.030) Urine Protein 30 (Negative) Urine Glucose (UA) >=1000 A (Negative) mg/dL Urine Ketones Negative (Negative) Urine Blood Negative (Negative) Urine Nitrite Negative (Negative) Urine Bilirubin Negative (Negative) Urine Urobilinogen 0.2 (0.2) mg/dL Ur Leukocyte Esterase Negative (Negative) U Hyaline Cast (Auto) NONE SEEN (0-2) /LPF Urine Microscopic RBC 0-2 (0-5) /HPF Urine Microscopic WBC 0-2 (0-5) /HPF Ur Epithelial Cells Rare (None Seen) /HPF Urine Bacteria None Seen (None Seen) /HPF Urine Culture Reflexed NO (NO) Influenza Type A Ag (NEGATIVE) Influenza Type B Ag (NEGATIVE) RSV (PCR) (NEGATIVE) SARS-CoV-2 (PCR) (NEGATIVE) - Progress Progress: improved Progress Note: 05/11/24 16:50 Differential diagnosis includes: PNA, STEMI, NSTEMI, other infection, musculoskeletal pain, pneumothorax - We'll obtain basic labs, fluids, EKG, troponin, chest x-ray - EKG shows no ST changes - my read - O2 saturations consistently greater than 90% on 4 L of oxygen - CXR shows pneumonia -my read -Patient has elevated troponin, elevated procalcitonin Francisco over the phone with on-call hospitalist, Dr. Freire. He did accept the patient to hospital team. We will repeat troponin prior to admission to make sure that troponin is not rising relation to a more severe cardiac event as opposed to just a type II trop leak secondary to infection. ED critical care statement As staff physician, I have provided critical care. Time: 40 mins Criteria for critical illness: Acute hypoxic respiratory failure, pneumonia Treatment and management provided include: Coordination of management with ETC care team, consultants, and inpatient care team. [id number] assessment of condition and response to therapy. Review and interpretation of emergent diagnostic testing. Medical chart review and completion. Direction and immediate supervision of the following therapy: Critical care was time spent personally by me on the following activities: blood draw for specimens, development of treatment plan with patient or surrogate, discussions with consultants, discussions with primary provider, interpretation of cardiac output measurements, evaluation of patient's response to treatment, examination of patient, obtaining history from patient or surrogate, ordering and performing treatments and interventions, ordering and review of laboratory studies, ordering and review of radiographic studies, pulse oximetry, re-evaluation of patient's condition and review of old charts. This time was independent of all procedures performed. Jerry Luong 05/11/24 18:59 Second troponin did not show any significant rise. Therefore we will admit patient to hospital. Admit pending. Patient hemodynamically stable. I did speak with her again. No new or different symptoms. Counseled pt/family regarding: lab results, diagnosis, need for follow-up, rad results - Departure Departure Disposition: In-patient Admission Clinical Impression: Pneumonia, Acute hypoxic respiratory failure, Elevated procalcitonin Condition: Stable Critical Care Time: No Critical Care Time(excluding separately billable procedures): Critical 30-74 mins Referrals: KEVON HASTINGS MD [Primary Care Provider] - Follow up/PCP as directed
[2024-05-11] MEDS ORDERED: Zithromax 500 MG/ 250 ML NaCl Premix 500 MG/250 ML IVPB IV ONE (15:44)
[2024-05-11 16:06] LABS: INFLUENZA A NEGATIVE (NEGATIVE); INFLUENZA B NEGATIVE (NEGATIVE); RESPIRATORY SYNCTIAL VIRUS NEGATIVE (NEGATIVE); SARS-CoV-2 Xpert Express NEGATIVE (NEGATIVE)
[2024-05-11] MEDS ORDERED: TYLENOL EXTRA STRENGTH 500 MG ONE (16:21)
[2024-05-11] MEDS: TYLENOL EXTRA STRENGTH 500 MG PO STA (16:22)
[2024-05-11 16:23] LABS: PROCALCITONIN 4.4 ng/mL (0.030-0.080)
[2024-05-11] MEDS: Zithromax 500 MG/ 250 ML NaCl Premix 500 MG/250 ML IVPB IV ONE (16:23)
[2024-05-11 17:46] LABS: BAND 1 % (0.0-2.0); Lymphocytes 6 % (24-44); Macrocytosis 1+; Metamyelocyte 1 %; Neutrophils 92 % (1.56-6.13); Platelet Estimate NORMAL (NORMAL); Total Cells Counted 100
--- NOTE | 2024-05-11 23:25 | PCM.HP ---
History of Present Illness - Chief Complaint Chief Complaint: Acute hypoxic Respiratory Failure, PNE, Elevated troponin Date: 05/11/24 History of Present Illness: Ms. Figueroa is a 74 year-old female with HTN, HLD, DM2, AFib on Eliquis, CAD s/p PCI, CKD, COPD, chart diagnoses of CHF, chronic hypoxemic respiratory failure (baseline 3L), and cervical cancer s/p resection who presents with shortness of breath. She admits to one day of cough and shortness of breath and weakness today. Upon arrival to [place], laboratory data revealed an elevated WBC, Cr 1.58, and elevated cardiac enzymes, while imaging was concerning for airspace disease and a small pleural effusion. On my examination, she is resting comfortably on 3L NC oxygen denying any current fevers, chills, nausea, vomiting, diarrhea, syncope, presyncope, visual changes, orthopnea, PND, odynophagia, dysphagia, chest pain, shortness of breath, belly pain, dysuria, hematuria, melena, hematochezia, or neurological changes. All other systems were reviewed and were negative. - Review of Systems Constitutional: Chills ( PER HPI) Medications & Allergies Home Medications: Home Medication List Allopurinol 300 mg [Zyloprim 300 mg] 300 mg PO HS 04/01/23 [History Confirmed 05/11/24] Amiodarone HCl 200 mg [Cordarone 200 MG] 200 mg PO DAILY 04/01/23 [History Confirmed 05/11/24] Amlodipine Besylate [Norvasc] 10 mg PO DAILY 04/01/23 [History Confirmed 05/11/24] Apixaban [Eliquis] 5 mg PO BID 04/01/23 [History Confirmed 05/11/24] Aspirin EC 81 mg [Ecotrin 81 mg] 81 mg PO HS 04/01/23 [History Confirmed 05/11/24] Cyclosporine [Restasis Multidose] 1 drop OP BID 04/01/23 [History Confirmed 05/11/24] Empagliflozin [Jardiance] 10 mg PO DAILY 04/01/23 [History Confirmed 05/11/24] Fenofibric Acid 35 mg PO HS 04/01/23 [History Confirmed 05/11/24] Fluticasone Propionate [Flonase Allergy Relief] 50 mcg INTRANASAL BID 04/01/23 [History Confirmed 05/11/24] Isosorbide Dinitrate 30 mg PO BREAKFAST 04/01/23 [History Confirmed 05/11/24] Montelukast Sodium 10 mg [Singulair 10 MG] 10 mg PO DAILY 04/01/23 [History Confirmed 05/11/24] Potassium Chloride 10 meq PO DAILY 04/01/23 [History Confirmed 05/11/24] Pregabalin 25 mg [Lyrica 25 MG] 25 mg PO BID 04/01/23 [History Confirmed 05/11/24] Spironolactone 25 mg [Aldactone 25 MG] 25 mg PO DAILY 04/01/23 [History Confirmed 05/11/24] Tizanidine HCl 4 mg [Zanaflex 4 MG] 4 mg PO HS 04/01/23 [History Confirmed 05/11/24] Torsemide 20 mg [Demadex 20 mg] 60 mg PO BID 04/01/23 [History Confirmed 05/11/24] Tramadol HCl 50 mg [Ultram 50 mg] 50 mg PO QDP PRN 04/01/23 [History Confirmed 05/11/24] Melatonin 1 tab PO HS 12/27/23 [History Confirmed 05/11/24] Metoprolol Succinate 50 mg [Toprol Xl 50 MG] 2 tab PO HS 12/27/23 [History Confirmed 05/11/24] Albuterol/Ipratropium 3ml Neb* [DUONEB 0.5-3 MG/3 ml Neb] 3 ml IH Q6HPRN PRN 30 Days #120 amp 12/29/23 [Rx Confirmed 05/11/24] Umeclidinium Brm/Vilanterol Tr [Anoro Ellipta 62.5-25 Mcg INH] 1 unit IH BID 01/21/24 [History Confirmed 05/11/24] Fluticasone Propionate [Fluticasone Propionate Hfa] 12 gm IH BID 05/11/24 [History Confirmed 05/11/24] Insulin Glargine [Lantus Insulin] 45 unit SQ BID 05/11/24 [History Confirmed 05/11/24] Allergies/Adverse Reactions: Allergies Allergy/AdvReac Type Severity Reaction Status Date / Time cefaclor Allergy Verified 05/11/24 14:42 ciprofloxacin [From Cipro] Allergy Verified 05/11/24 14:42 gabapentin [From Neurontin] Allergy Verified 05/11/24 14:42 glipizide Allergy Verified 05/11/24 21:27 guaifenesin [From Robitussin] Allergy Verified 05/11/24 21:27 hydrocodone Allergy Verified 05/11/24 21:27 lisinopril Allergy Verified 05/11/24 21:27 lovastatin Allergy Verified 05/11/24 21:27 metoprolol Allergy Verified 05/11/24 21:27 naproxen [From Aleve] Allergy Verified 05/11/24 21:27 nifedipine [From Procardia] Allergy Verified 05/11/24 21:27 paroxetine Allergy Verified 05/11/24 21:27 Penicillins Allergy Verified 05/11/24 21:27 procaine [From Novocain] Allergy Verified 05/11/24 21:27 sulfacetamide Allergy Verified 05/11/24 21:27 tetracycline Allergy Verified 05/11/24 21:27 theophylline Allergy Verified 05/11/24 21:27 ticagrelor [From Brilinta] Allergy Verified 05/11/24 21:27 azithromycin [From Zithromax] AdvReac Mild Nausea Verified 05/11/24 21:27 - Past Medical History Past Medical History: Yes Neurological History: No Pertinent History ENT History: Cataracts Cardiac History: Coronary Artery Disease, High Cholesterol, Hypertension, Myocardial Infarction ([place]) Respiratory History: CHF, COPD Endocrine Medical History: Diabetes Type II Musculoskelatal History: Arthritis GI Medical History: GERD History: Renal Disease Pyscho-Social History: No Pertinent History Reproductive Disorders: No Pertinent History, Cervical Cancer Comment: neuropathy - Past Surgical History Past Surgical History: Yes Neuro Surgical History: No Pertinent History Cardiac History: Cardiac Catheterization, Cardiac Stent Respiratory Surgery: No Pertinent History GI Surgical History: Cholecystectomy Genitourinary Surgical Hx: No Pertinent History Musculskeletal Surgical Hx: No Pertinent History Female Surgical History: Other Other Surgical History: cervic ca, leep sx on cervix - Social History Smoking Status: Former smoker Exposure to second hand smoke: No Alcohol: None Drug Use: none - Social Determinants of Health Will the patient participate in the screening: Declined to provide Do you worry about a steady place to live?: No In the past 12 months,have you had to go without utilities?: No Have you or anyone in your house had to go without enough: Yes Transportation Issues: No Has anyone in your support network made you feel unsafe?: No Does the patient want assistance with any of the above?: No Comment: family vehicle is not reliable lately - Physical Exam Vital Signs: Vital Signs - 24 hr Temp Pulse Resp BP BP Pulse Ox 05/11/24 23:09 97 05/11/24 21:54 97.1 F 64 26 H 151/70 98 05/11/24 21:00 65 21 130/52 95 05/11/24 20:30 63 18 137/60 95 05/11/24 20:00 63 24 132/68 95 05/11/24 19:30 62 15 133/63 94 L 05/11/24 19:20 63 24 130/58 95 05/11/24 18:59 94 L 05/11/24 15:18 68 18 94 L 05/11/24 14:54 22 95 05/11/24 14:41 100.7 F 68 24 142/82 142/82 94 L General Appearance: no apparent distress, alert Neurologic Exam: alert, oriented x 3, cooperative, normal mood/affect, nml cerebellar function, nml station & gait, sensation nml, No motor deficits Eye Exam: PERRL/EOMI, eyes nml inspection Ears, Nose, Throat Exam: normal ENT inspection, TMs normal, pharynx normal, moist mucous membranes Neck Exam: normal inspection, non-tender, supple, full range of motion Respiratory Exam: normal breath sounds, lungs clear, No respiratory distress Cardiovascular Exam: regular rate/rhythm, normal heart sounds, normal peripheral pulses Gastrointestinal/Abdomen Exam: soft, normal bowel sounds, No tenderness, No mass Back Exam: normal inspection, normal range of motion, No CVA tenderness, No vertebral tenderness Extremity Exam: normal inspection, normal range of motion, pelvis stable Skin Exam: normal color, warm, dry, No rash Lymphatic Exam: No adenopathy Results - Labs Lab/Micro Results: Lab Results-Last 24 Hours 05/11/24 05/11/24 05/11/24 Range/Units 14:47 15:05 15:15 WBC 34.0 H* (3.98-10.04) x10^3/uL RBC 4.05 (3.93-5.22) x10^6/uL Hgb 10.9 L (11.2-15.7) g/dL Hct 34.5 (34.1-44.9) % MCV 85.2 (79.4-94.8) fL MCH 26.9 (25.6-32.2) pg MCHC 31.6 L (32.2-35.5) g/dL RDW 16.3 H (11.7-14.4) % Plt Count 346 (182-369) x10^3/uL MPV 11.4 (9.4-12.3) fL Segmented Neutrophils 92 H (1.56-6.13) % Band Neutrophils 1 (0.0-2.0) % Lymphocytes (Manual) 6 L (24-44) % Metamyelocytes 1 % Platelet Estimate NORMAL (NORMAL) RBC Morphology ABNORMAL Macrocytosis 1+ Smear Path Review Pending Sodium 137 (135-145) mmol/L Potassium 3.9 (3.5-5.1) mmol/L Chloride 99 (98-107) mmol/L Carbon Dioxide 30 (22-30) mmol/L Anion Gap 12.3 (5-15) MEQ/L BUN 34 H (7-17) mg/dL Creatinine 1.58 H (0.52-1.04) mg/dL Estimated GFR 34.4 ML/MIN Glucose 170 H (74-106) mg/dL Calcium 9.2 (8.4-10.2) mg/dL Total Bilirubin 0.80 (0.2-1.3) mg/dL AST 38 H (14-36) U/L ALT 24 (0-35) U/L Alkaline Phosphatase 73 (38-126) U/L Creatine Kinase 481 H (30-135) U/L Troponin I (0.000-0.033) ng/mL NT-Pro-B Natriuret Pep (<300) pg/mL Serum Total Protein 7.7 (6.3-8.2) g/dL Albumin 4.0 (3.5-5.0) g/dL Procalcitonin (0.030-0.080) ng/mL Urine Color Yellow (Yellow) Urine Appearance Clear (Clear) Urine pH 5.5 (4.6-8.0) Ur Specific [place] 1.020 (1.005-1.030) Urine Protein 30 (Negative) Urine Glucose (UA) >=1000 A (Negative) mg/dL Urine Ketones Negative (Negative) Urine Blood Negative (Negative) Urine Nitrite Negative (Negative) Urine Bilirubin Negative (Negative) Urine Urobilinogen 0.2 (0.2) mg/dL Ur Leukocyte Esterase Negative (Negative) U Hyaline Cast (Auto) NONE SEEN (0-2) /LPF Urine Microscopic RBC 0-2 (0-5) /HPF Urine Microscopic WBC 0-2 (0-5) /HPF Ur Epithelial Cells Rare (None Seen) /HPF Urine Bacteria None Seen (None Seen) /HPF Urine Culture Reflexed NO (NO) Influenza Type A Ag (NEGATIVE) Influenza Type B Ag (NEGATIVE) RSV (PCR) (NEGATIVE) SARS-CoV-2 (PCR) (NEGATIVE) 05/11/24 05/11/24 05/11/24 Range/Units 15:15 15:15 15:17 WBC (3.98-10.04) x10^3/uL RBC (3.93-5.22) x10^6/uL Hgb (11.2-15.7) g/dL Hct (34.1-44.9) % MCV (79.4-94.8) fL MCH (25.6-32.2) pg MCHC (32.2-35.5) g/dL RDW (11.7-14.4) % Plt Count (182-369) x10^3/uL MPV (9.4-12.3) fL Segmented Neutrophils (1.56-6.13) % Band Neutrophils (0.0-2.0) % Lymphocytes (Manual) (24-44) % Metamyelocytes % Platelet Estimate (NORMAL) RBC Morphology Macrocytosis Smear Path Review Sodium (135-145) mmol/L Potassium (3.5-5.1) mmol/L Chloride (98-107) mmol/L Carbon Dioxide (22-30) mmol/L Anion Gap (5-15) MEQ/L BUN (7-17) mg/dL Creatinine (0.52-1.04) mg/dL Estimated GFR ML/MIN Glucose (74-106) mg/dL Calcium (8.4-10.2) mg/dL Total Bilirubin (0.2-1.3) mg/dL AST (14-36) U/L ALT (0-35) U/L Alkaline Phosphatase (38-126) U/L Creatine Kinase (30-135) U/L Troponin I 0.070 H* (0.000-0.033) ng/mL NT-Pro-B Natriuret Pep 4130 (<300) pg/mL Serum Total Protein (6.3-8.2) g/dL Albumin (3.5-5.0) g/dL Procalcitonin 4.400 H* (0.030-0.080) ng/mL Urine Color (Yellow) Urine Appearance (Clear) Urine pH (4.6-8.0) Ur Specific [place] (1.005-1.030) Urine Protein (Negative) Urine Glucose (UA) (Negative) mg/dL Urine Ketones (Negative) Urine Blood (Negative) Urine Nitrite (Negative) Urine Bilirubin (Negative) Urine Urobilinogen (0.2) mg/dL Ur Leukocyte Esterase (Negative) U Hyaline Cast (Auto) (0-2) /LPF Urine Microscopic RBC (0-5) /HPF Urine Microscopic WBC (0-5) /HPF Ur Epithelial Cells (None Seen) /HPF Urine Bacteria (None Seen) /HPF Urine Culture Reflexed (NO) Influenza Type A Ag NEGATIVE (NEGATIVE) Influenza Type B Ag NEGATIVE (NEGATIVE) RSV (PCR) NEGATIVE (NEGATIVE) SARS-CoV-2 (PCR) NEGATIVE (NEGATIVE) 05/11/24 Range/Units 18:10 WBC (3.98-10.04) x10^3/uL RBC (3.93-5.22) x10^6/uL Hgb (11.2-15.7) g/dL Hct (34.1-44.9) % MCV (79.4-94.8) fL MCH (25.6-32.2) pg MCHC (32.2-35.5) g/dL RDW (11.7-14.4) % Plt Count (182-369) x10^3/uL MPV (9.4-12.3) fL Segmented Neutrophils (1.56-6.13) % Band Neutrophils (0.0-2.0) % Lymphocytes (Manual) (24-44) % Metamyelocytes % Platelet Estimate (NORMAL) RBC Morphology Macrocytosis Smear Path Review Sodium (135-145) mmol/L Potassium (3.5-5.1) mmol/L Chloride (98-107) mmol/L Carbon Dioxide (22-30) mmol/L Anion Gap (5-15) MEQ/L BUN (7-17) mg/dL Creatinine (0.52-1.04) mg/dL Estimated GFR ML/MIN Glucose (74-106) mg/dL Calcium (8.4-10.2) mg/dL Total Bilirubin (0.2-1.3) mg/dL AST (14-36) U/L ALT (0-35) U/L Alkaline Phosphatase (38-126) U/L Creatine Kinase (30-135) U/L Troponin I 0.073 H* (0.000-0.033) ng/mL NT-Pro-B Natriuret Pep (<300) pg/mL Serum Total Protein (6.3-8.2) g/dL Albumin (3.5-5.0) g/dL Procalcitonin (0.030-0.080) ng/mL Urine Color (Yellow) Urine Appearance (Clear) Urine pH (4.6-8.0) Ur Specific [place] (1.005-1.030) Urine Protein (Negative) Urine Glucose (UA) (Negative) mg/dL Urine Ketones (Negative) Urine Blood (Negative) Urine Nitrite (Negative) Urine Bilirubin (Negative) Urine Urobilinogen (0.2) mg/dL Ur Leukocyte Esterase (Negative) U Hyaline Cast (Auto) (0-2) /LPF Urine Microscopic RBC (0-5) /HPF Urine Microscopic WBC (0-5) /HPF Ur Epithelial Cells (None Seen) /HPF Urine Bacteria (None Seen) /HPF Urine Culture Reflexed (NO) Influenza Type A Ag (NEGATIVE) Influenza Type B Ag (NEGATIVE) RSV (PCR) (NEGATIVE) SARS-CoV-2 (PCR) (NEGATIVE) - Radiology Impressions Radiology Exams & Impressions: Radiology Procedures Category Date Time Status CHEST 1 VIEW (PORTABLE) Stat Exams 05/11/24 14:47 Completed CHEST WITHOUT CONTRAST [CT] Routine Exams 05/11/24 23:03 Ordered ECHO W/2D AND DOPPLER [US] Routine Exams 05/11/24 23:03 Ordered - Other Procedures and Tests Respiratory Therapy 05/11/24 16:56 Respiratory Therapy Consult ONCE Assessment/Plan (1) Pneumonia Current Visit: Yes Status: Acute Qualifiers: Assessment & Plan: ANTIBIOTICS AND STEROIDS Solumedrol Azithromycin Zosyn ASSESSMENT 1. Pneumonia 2. Acute COPD Exacerbation 3. Non-ST Elevation Myocardial Infarction, Type I vs. II 4. Hypertension 5. Hyperlipidemia 6. Type II Diabetes Mellitus 7. Coronary Artery Disease s/p PCI 8. Chronic Kidney Disease 9. Atrial Fibrillation on Eliquis 10. Congestive Heart Failure 11. Cervical Cancer s/p Resection PLAN 1. Wean oxygen to maintain SaO2 > 90%; on baseline 3L [place] 2. Broad Abx given recent hospitalization; Viral panel negative; MRSA swab pending; sputum sample ordered 3. Duonebs + IV steroids 4. Continue home antihypertensives and cardiac medications 5. q4hr CBG + MDSS 6. Non-Contrast CT chest in AM 7. Echo in AM Eliquis The entirety of this encounter was done via telemedicine with audio and visual. Consent was obtained for a telemedicine encounter. Nima Piedra MD Pulmonary and Critical Care Medicine Code(s): J18.9 - PNEUMONIA, UNSPECIFIED ORGANISM Telemedicine Encounter - Telemedicine Encounter Telemedicine Encounter: The entirety of this encounter was performed via Telemedicine"
[2024-05-12] MEDS ORDERED: solu-MEDROL 40 MG, Sterile H2O 10 ml 2 ML IV SCH
[2024-05-12] MEDS ORDERED: solu-MEDROL ONE ×2 (00:01→05:41)
[2024-05-12] MEDS ORDERED: Sodium Chloride 100ML MINI-BAG PLUS 100 ML IV ONE ×2 (00:01→05:42)
[2024-05-12] MEDS ORDERED: Sterile H2O 10 ml IJ ONE ×2 (00:01→05:41)
[2024-05-12] MEDS ORDERED: PIPERACILLIN/TAZOBACTAM IV ONE ×2 (00:01→05:41)
[2024-05-12] MEDS: solu-MEDROL 40 MG, Sterile H2O 10 ml 1 ML IV SCH (00:09)
[2024-05-12] MEDS: PIPERACILLIN/TAZOBACTAM 3.375 GM in Sodium Chloride 100ML MINI-BAG PLUS 100 ML IV SCH (00:09)
[2024-05-12] MEDS: TYLENOL EXTRA STRENGTH 500 MG PO SCH (00:55)
[2024-05-12] MEDS: DUONEB 0.5-3 MG/3 ml Neb IH SCH (02:48)
[2024-05-12 04:39] VITALS: TEMP 97.5
--- NOTE | 2024-05-12 05:06 | PCM.NOTE ---
Date and Time: 05/12/24 0457 Subjective Assessment: Ms. Figueroa is a 74 year old female with a pmhx of CAD, COPD (3L at baseline), AFIB, HLD, HTN, ID (one month ago), CHF, DMII, cervical cancer, renal disease, and GERD admitted to [facility] 05/11/24 with sepsis secondary to pneumonia after experiencing shortness of breath and fever that started the night prior. Patient was febrile on arrival CXR consistent with pneumonia showing new moderate left base pneumonic infiltrate with tiny effusion. Lab findings remarkable for leukocytosis with WBC at 34, procalcitonin elevated at 4.400, BNP at 4130, CK at 481, Creat at 1.58 ( baseline around 1.2-1.3), and hgb at 10.9. Of note, initial trops 0.070. Respiratory panel and urinalysis negative. Patient was given azithr omycin and solumedrol in ED. Will continue with Zosyn. 05/12/24: Objective Exam Wound Assessment: Skin/Wound Assessment Wound/Incision Assessment Start: 05/11/24 22:15 Text: Status: Active Freq: Q6H Protocol: Document 05/12/24 00:00 AR (Rec: 05/12/24 00:38 AR [id number]) Wound/Incision Assessment Left Lower Lateral Calf Wound Assessment Admission Wound Type Skin Tear Wound Stage Non Pressure Wound Dressing Status Changed Drainage Amount None General Appearance Well Approximated Surrounding Tissue [place] Primary Dressing telfa pad Wound Photo Photo Taken Yes Date: 05/11/24 Time: 22:00 Objective Data Vital Signs: Vital Signs - 24 hr Temp Pulse Resp BP BP Pulse Ox 05/12/24 04:00 97.5 F 65 22 154/65 97 05/12/24 02:51 72 16 98 05/12/24 00:00 97.2 F 66 26 H 139/63 96 05/11/24 23:09 97 05/11/24 21:54 97.1 F 64 26 H 151/70 98 05/11/24 21:00 65 21 130/52 95 05/11/24 20:30 63 18 137/60 95 05/11/24 20:00 63 24 132/68 95 05/11/24 19:30 62 15 133/63 94 L 05/11/24 19:20 63 24 130/58 95 05/11/24 18:59 94 L 05/11/24 15:18 68 18 94 L 05/11/24 14:54 22 95 05/11/24 14:41 100.7 F 68 24 142/82 142/82 94 L Pain Assessment - Last Documented Pain Intensity 0 Intake and Output: Intake & Output 05/09/24 05/10/24 05/11/24 05/12/24 11:59 11:59 11:59 11:59 Intake Total 780 Balance 780 Weight 94.5 kg Lab Results: Lab Results-Last 24 Hours 05/11/24 05/11/24 05/11/24 Range/Units 14:47 15:05 15:15 WBC 34.0 H* (3.98-10.04) x10^3/uL RBC 4.05 (3.93-5.22) x10^6/uL Hgb 10.9 L (11.2-15.7) g/dL Hct 34.5 (34.1-44.9) % MCV 85.2 (79.4-94.8) fL MCH 26.9 (25.6-32.2) pg MCHC 31.6 L (32.2-35.5) g/dL RDW 16.3 H (11.7-14.4) % Plt Count 346 (182-369) x10^3/uL MPV 11.4 (9.4-12.3) fL Segmented Neutrophils 92 H (1.56-6.13) % Band Neutrophils 1 (0.0-2.0) % Lymphocytes (Manual) 6 L (24-44) % Metamyelocytes 1 % Platelet Estimate NORMAL (NORMAL) RBC Morphology ABNORMAL Macrocytosis 1+ Smear Path Review Pending Sodium 137 (135-145) mmol/L Potassium 3.9 (3.5-5.1) mmol/L Chloride 99 (98-107) mmol/L Carbon Dioxide 30 (22-30) mmol/L Anion Gap 12.3 (5-15) MEQ/L BUN 34 H (7-17) mg/dL Creatinine 1.58 H (0.52-1.04) mg/dL Estimated GFR 34.4 ML/MIN Glucose 170 H (74-106) mg/dL Calcium 9.2 (8.4-10.2) mg/dL Total Bilirubin 0.80 (0.2-1.3) mg/dL AST 38 H (14-36) U/L ALT 24 (0-35) U/L Alkaline Phosphatase 73 (38-126) U/L Creatine Kinase 481 H (30-135) U/L Troponin I (0.000-0.033) ng/mL NT-Pro-B Natriuret Pep (<300) pg/mL Serum Total Protein 7.7 (6.3-8.2) g/dL Albumin 4.0 (3.5-5.0) g/dL Procalcitonin (0.030-0.080) ng/mL Urine Color Yellow (Yellow) Urine Appearance Clear (Clear) Urine pH 5.5 (4.6-8.0) Ur Specific [place] 1.020 (1.005-1.030) Urine Protein 30 (Negative) Urine Glucose (UA) >=1000 A (Negative) mg/dL Urine Ketones Negative (Negative) Urine Blood Negative (Negative) Urine Nitrite Negative (Negative) Urine Bilirubin Negative (Negative) Urine Urobilinogen 0.2 (0.2) mg/dL Ur Leukocyte Esterase Negative (Negative) U Hyaline Cast (Auto) NONE SEEN (0-2) /LPF Urine Microscopic RBC 0-2 (0-5) /HPF Urine Microscopic WBC 0-2 (0-5) /HPF Ur Epithelial Cells Rare (None Seen) /HPF Urine Bacteria None Seen (None Seen) /HPF Urine Culture Reflexed NO (NO) Nasal Screen MRSA (PCR) (NEGATIVE) Influenza Type A Ag (NEGATIVE) Influenza Type B Ag (NEGATIVE) RSV (PCR) (NEGATIVE) SARS-CoV-2 (PCR) (NEGATIVE) 05/11/24 05/11/24 05/11/24 Range/Units 15:15 15:15 15:17 WBC (3.98-10.04) x10^3/uL RBC (3.93-5.22) x10^6/uL Hgb (11.2-15.7) g/dL Hct (34.1-44.9) % MCV (79.4-94.8) fL MCH (25.6-32.2) pg MCHC (32.2-35.5) g/dL RDW (11.7-14.4) % Plt Count (182-369) x10^3/uL MPV (9.4-12.3) fL Segmented Neutrophils (1.56-6.13) % Band Neutrophils (0.0-2.0) % Lymphocytes (Manual) (24-44) % Metamyelocytes % Platelet Estimate (NORMAL) RBC Morphology Macrocytosis Smear Path Review Sodium (135-145) mmol/L Potassium (3.5-5.1) mmol/L Chloride (98-107) mmol/L Carbon Dioxide (22-30) mmol/L Anion Gap (5-15) MEQ/L BUN (7-17) mg/dL Creatinine (0.52-1.04) mg/dL Estimated GFR ML/MIN Glucose (74-106) mg/dL Calcium (8.4-10.2) mg/dL Total Bilirubin (0.2-1.3) mg/dL AST (14-36) U/L ALT (0-35) U/L Alkaline Phosphatase (38-126) U/L Creatine Kinase (30-135) U/L Troponin I 0.070 H* (0.000-0.033) ng/mL NT-Pro-B Natriuret Pep 4130 (<300) pg/mL Serum Total Protein (6.3-8.2) g/dL Albumin (3.5-5.0) g/dL Procalcitonin 4.400 H* (0.030-0.080) ng/mL Urine Color (Yellow) Urine Appearance (Clear) Urine pH (4.6-8.0) Ur Specific [place] (1.005-1.030) Urine Protein (Negative) Urine Glucose (UA) (Negative) mg/dL Urine Ketones (Negative) Urine Blood (Negative) Urine Nitrite (Negative) Urine Bilirubin (Negative) Urine Urobilinogen (0.2) mg/dL Ur Leukocyte Esterase (Negative) U Hyaline Cast (Auto) (0-2) /LPF Urine Microscopic RBC (0-5) /HPF Urine Microscopic WBC (0-5) /HPF Ur Epithelial Cells (None Seen) /HPF Urine Bacteria (None Seen) /HPF Urine Culture Reflexed (NO) Nasal Screen MRSA (PCR) (NEGATIVE) Influenza Type A Ag NEGATIVE (NEGATIVE) Influenza Type B Ag NEGATIVE (NEGATIVE) RSV (PCR) NEGATIVE (NEGATIVE) SARS-CoV-2 (PCR) NEGATIVE (NEGATIVE) 05/11/24 05/11/24 05/11/24 Range/Units 18:10 22:28 23:25 WBC (3.98-10.04) x10^3/uL RBC (3.93-5.22) x10^6/uL Hgb (11.2-15.7) g/dL Hct (34.1-44.9) % MCV (79.4-94.8) fL MCH (25.6-32.2) pg MCHC (32.2-35.5) g/dL RDW (11.7-14.4) % Plt Count (182-369) x10^3/uL MPV (9.4-12.3) fL Segmented Neutrophils (1.56-6.13) % Band Neutrophils (0.0-2.0) % Lymphocytes (Manual) (24-44) % Metamyelocytes % Platelet Estimate (NORMAL) RBC Morphology Macrocytosis Smear Path Review Sodium (135-145) mmol/L Potassium (3.5-5.1) mmol/L Chloride (98-107) mmol/L Carbon Dioxide (22-30) mmol/L Anion Gap (5-15) MEQ/L BUN (7-17) mg/dL Creatinine (0.52-1.04) mg/dL Estimated GFR ML/MIN Glucose (74-106) mg/dL Calcium (8.4-10.2) mg/dL Total Bilirubin (0.2-1.3) mg/dL AST (14-36) U/L ALT (0-35) U/L Alkaline Phosphatase (38-126) U/L Creatine Kinase (30-135) U/L Troponin I 0.073 H* 0.057 H* (0.000-0.033) ng/mL NT-Pro-B Natriuret Pep (<300) pg/mL Serum Total Protein (6.3-8.2) g/dL Albumin (3.5-5.0) g/dL Procalcitonin (0.030-0.080) ng/mL Urine Color (Yellow) Urine Appearance (Clear) Urine pH (4.6-8.0) Ur Specific [place] (1.005-1.030) Urine Protein (Negative) Urine Glucose (UA) (Negative) mg/dL Urine Ketones (Negative) Urine Blood (Negative) Urine Nitrite (Negative) Urine Bilirubin (Negative) Urine Urobilinogen (0.2) mg/dL Ur Leukocyte Esterase (Negative) U Hyaline Cast (Auto) (0-2) /LPF Urine Microscopic RBC (0-5) /HPF Urine Microscopic WBC (0-5) /HPF Ur Epithelial Cells (None Seen) /HPF Urine Bacteria (None Seen) /HPF Urine Culture Reflexed (NO) Nasal Screen MRSA (PCR) NOT DETECTED (NEGATIVE) Influenza Type A Ag (NEGATIVE) Influenza Type B Ag (NEGATIVE) RSV (PCR) (NEGATIVE) SARS-CoV-2 (PCR) (NEGATIVE) Radiology Exams: Radiology Procedures Category Date Time Status CHEST 1 VIEW (PORTABLE) Stat Exams 05/11/24 14:47 Completed CHEST WITHOUT CONTRAST [CT] Routine Exams 05/12/24 08:00 Ordered ECHO W/2D AND DOPPLER [US] Routine Exams 05/14/24 08:00 Ordered Multi-Disciplinary Progress Notes: Multi-Disciplinary Progress Notes 05/11/24 23:10 Respiratory Note by Angelika Edward SpO2 97% on 4lpm nasal cannula. No respiratory distress noted. O2 decreased to 3lpm nasal cannula at this time. NSG made aware of change. Will continue to monitor. Initialized on 05/11/24 23:10 - END OF NOTE Assessment/Plan (1) Sepsis Current Visit: Yes Status: Acute Assessment & Plan: -2/2 to pneumonia -WBC at 34 -LA at 4.40 -Zosyn started ( patient with multiple allergies)- recent hospitalization/copd/chronic steroid use plus levaquin -duonebs/solumedrol -MRSA negative -Sputum and blood cultures pending -Supplemental oxygen for goal spo2 >88-92% -CT of chest today without contrast - (2) Pneumonia Current Visit: Yes Status: Acute Qualifiers: Assessment & Plan: -cxr with new moderate left base pneumonic infiltrate with tiny effusion -Pt meeting sepsis criteria with WBC at 34, LA at 4.40, resp >20, febrile on admission, known source of infection -Continue zosyn, nebs/steroids/levaquin Code(s): J18.9 - PNEUMONIA, UNSPECIFIED ORGANISM (3) Afib Current Visit: Yes Status: Acute Assessment & Plan: -Continue eliquis Code(s): I48.91 - UNSPECIFIED ATRIAL FIBRILLATION (4) COPD exacerbation Current Visit: Yes Status: Acute Assessment & Plan: -most likely secondary to pneumonia -Nebs/steroids -supplemental oxygen with goal >88-92% -see pneumonia plan Code(s): J44.1 - CHRONIC OBSTRUCTIVE PULMONARY DISEASE W (ACUTE) EXACERBATION (5) History of cervical cancer Current Visit: Yes Status: Acute Assessment & Plan: -noted, adds complexity Code(s): Z85.41 - PERSONAL HISTORY OF MALIGNANT NEOPLASM OF CERVIX UTERI (6) Acute respiratory failure with hypoxia Current Visit: Yes Status: Acute Assessment & Plan: -secondary to pneumonia/copd exacerbation -RT eval -Supplemental oxygen with goal spo2 > 88-92% - baseline 3L -Treat pneumonia with Zosyn -Nebs/steroids -ABG if increased lethargy/confusion Code(s): J96.01 - ACUTE RESPIRATORY FAILURE WITH HYPOXIA (7) Acute on chronic renal failure Current Visit: No Status: Acute Assessment & Plan: -baseline 1.2-1.3 -CHF - will avoid hydration -Avoid NSAIDS/ARB/ALIREZA -monitor renal/lytes daily -Hold Jardiance Code(s): N17.9 - ACUTE KIDNEY FAILURE, UNSPECIFIED; N18.9 - CHRONIC KIDNEY DISEASE, UNSPECIFIED (8) CAD (coronary artery disease) Current Visit: No Status: Acute Assessment & Plan: -recent ID one month ago -trops downtrending -continue home meds -BNP 4130 Code(s): I25.10 - ATHSCL HEART DISEASE OF [place] CORONARY ARTERY W/O ANG PCTRS (9) Type 2 diabetes mellitus Current Visit: Yes Status: Acute Assessment & Plan: -ADA diet -SSI/lantus -Hold Jardiance (10) Hypokalemia Current Visit: Yes Status: Acute Assessment & Plan: -labs reviewed, K+ at 3.3, will replenish -Monitor renal/lytes daily -tele Code(s): E87.6 - HYPOKALEMIA (11) CHF (congestive heart failure) Current Visit: No Status: Acute Assessment & Plan: -last echo 07/13/23 EF 45-50% IMPRESSION: 1. MILD CONCENTRIC LEFT VENTRICULAR HYPERTROPHY. 2. MILD LEFT VENTRICULAR SYSTOLIC DYSFUNCTION. 3. DIASTOLIC DYSFUNCTION. 4. MITRAL ANNULUS AND VALVULAR CALCIFICATION WITH EVIDENCE OF MILD MITRAL STENOSIS. 5. MILD TO MODERATE MITRAL REGURGITATION AND MILD TRICUSPID REGURGITATION. -Will obtain new Echo when able -BNP at 4130 VTE: Eliquis PPI: protonix Dispo: 2-3 days Code(s): I50.9 - HEART FAILURE, UNSPECIFIED
[2024-05-12 06:04] LABS: Hematocrit 36.1 % (34.1-44.9); Hemoglobin 11.1 g/dL (11.2-15.7); Mean Corpuscular Hemoglobin 26.7 pg (25.6-32.2); Mean Corpuscular Hgb Concent. 30.7 g/dL (32.2-35.5); Mean Platelet Volume 11.4 fL (9.4-12.3); Platelet Count 305 x10^3/uL (182-369); Red Blood Count 4.15 x10^6/uL (3.93-5.22); Red Cell Distribution Width 15.9 % (11.7-14.4)
[2024-05-12 06:30] LABS: ALBUMIN 4.1 g/dL (3.5-5.0); ANION GAP 13.9 MEQ/L (5-15); BILIRUBIN,TOTAL 0.8 mg/dL (0.2-1.3); Calcium 9.2 mg/dL (8.4-10.2); Creatinine 1 1.44 mg/dL (0.52-1.04); EST GLOMERULAR FILTRATION RATE 38.4 ML/MIN; Potassium 3.3 mmol/L (3.5-5.1)
[2024-05-12 06:54] LABS: White Blood Count 32.7 x10^3/uL (3.98-10.04)
[2024-05-12] MEDS ORDERED: ISOSORBIDE DINITRATE 30 MG PO SCH (08:00)
[2024-05-12] MEDS: Klor Con PO SCH (08:46)
[2024-05-12] MEDS: HUMALOG SQ PRN (08:47)
[2024-05-12] MEDS: ULTRAM 50 MG PO PRN (08:47)
[2024-05-12 08:50] LABS: BAND 12 % (0.0-2.0); Lymphocytes 3 % (24-44); Monocyte 1 % (0.0-12.0); Neutrophils 84 % (1.56-6.13); Total Cells Counted 100
[2024-05-12 08:51] LABS: Platelet Estimate NORMAL (NORMAL)
--- NOTE | 2024-05-12 09:57 | XRAY ---
CLINICAL HISTORY: pna COMPARISON: 04/18/2024. TECHNIQUE: Axial CT images of the chest were acquired without the administration of intravenous contrast. Coronal and sagittal reconstructions were obtained. One of the following dose reduction techniques were utilized for this exam: Automated exposure control, adjustment of the mA and/or kV according to patient size, use of iterative reconstruction FINDINGS: A well-defined solid pulmonary nodule with speculated margins and ground glass halo was noted in the apicoposterior segment of the left upper lung lobe, it measures 10x9.3 mm. Large left lower pneumonic consolidation with underlying mild left pleural effusion. Cardiomegaly. No right free or encysted pleural effusion. No pathologically enlarged hilar, or axillary lymph node was identified. There is no definite mass lesion in the chest wall. Multiple small mediastinal lymph nodes, the largest noted in the right paratracheal region measure 9 mm. The scanned upper abdomen showed bulky adrenal glands with possible nodules, Larger on the left side, MRI abdomen with contrast is needed for correlation. Thoracic spine degenerative changes with osteophytes. Coronary arteries, thoracic aortic, and scanned abdominal aortic intimal atherosclerotic calcifications. [place] right thyroid lobe nodule measures 16x14 mm, Ultrasound correlation is needed. IMPRESSION: 1. Left upper solid pulmonary nodule with speculated margins and ground glass halo was noted in the apicoposterior segment of the left upper lung lobe, consider CT at 3 months, PET-CT, or tissue sampling regarding the Fleischner Society pulmonary nodule recommendations. Stable finding. 2. Large left lower pneumonic consolidation with underlying mild left pleural effusion could be infective, post-contrast CT chest is needed to rule out the underlying neoplastic lesion. A new finding. 3. Multiple small mediastinal lymph nodes. Stable 4. The scanned upper abdomen showed bulky adrenal glands with possible nodules, Larger on the left side, MRI abdomen with contrast is needed for correlation. Stable 5. [place] right thyroid lobe nodule measures 16x14 mm, Ultrasound correlation is needed. Stable. [facility] ER was called at [phone] at 08:41 AM PLASTIC SURGERY ASSISTANT, 05/12/2024 and results were verbally communicated to Dee Dee Loza Electronically Signed by: Pamela Diaz MD. (05/12/2024 09:52:44 EDT)
[2024-05-12] MEDS ORDERED: PATIENT OWN MEDICATION IH SCH (10:00)
[2024-05-12] MEDS ORDERED: Zithromax 500 MG/ 250 ML NaCl Premix 500 MG/250 ML IVPB IV SCH (10:00)
[2024-05-12] MEDS ORDERED: Flovent 110 Mcg MDI IH SCH (10:00)
[2024-05-12] MEDS ORDERED: Aldactone 25 MG PO SCH (10:00)
[2024-05-12] MEDS ORDERED: NON-FORMULARY ITEM (Amlodipine Besylate [Norvasc] 10 MG Tablet) PO SCH (10:00)
[2024-05-12] MEDS ORDERED: JARDIANCE PO SCH (10:00)
[2024-05-12] MEDS ORDERED: DEMADEX 20 MG PO SCH (10:00)
[2024-05-12] MEDS ORDERED: NON-FORMULARY ITEM (Apixaban [Eliquis] 5 MG Tablet) PO SCH (10:00)
[2024-05-12] MEDS: Singulair 10 MG PO SCH (10:47)
[2024-05-12] MEDS: Imdur 30 MG PO SCH (10:47)
[2024-05-12] MEDS: Cordarone 200 MG PO SCH (10:48)
[2024-05-12] MEDS: Lyrica 25 MG PO SCH (10:48)
[2024-05-12] MEDS: ELIQUIS 2.5 MG TABLET PO SCH (10:48)
[2024-05-12] MEDS: NORVASC 5 MG PO SCH (10:48)
[2024-05-12] MEDS: Lantus Insulin SQ SCH (10:48)
[2024-05-12] MEDS: LEVOFLOXACIN 750MG/150ML D5W 750 MG/150 ML BAG IV SCH (10:49)
[2024-05-12 11:11] VITALS: RESP 20
[2024-05-12 11:42] VITALS: BP 143/63; O2SAT 94
[2024-05-12] MEDS ORDERED: VANCOMYCIN 1.25 GM/250 ML BAG 1.25 GM/250 ML PIGGYBACK IV ONE (13:30)
--- NOTE | 2024-05-12 13:49 | PCM.DS ---
Discharge Summary Date of Admission: 05/11/24 21:16 Date of Discharge: 05/12/24 Admitting Physician: BRENDAN MARY MD Primary Care Provider: KEVON HASTINGS HARVINDER Allergies Allergies cefaclor Allergy (Verified 05/11/24 14:42) ciprofloxacin [From Cipro] Allergy (Verified 05/11/24 14:42) gabapentin [From Neurontin] Allergy (Verified 05/11/24 14:42) glipizide Allergy (Verified 05/11/24 21:27) guaifenesin [From Robitussin] Allergy (Verified 05/11/24 21:27) hydrocodone Allergy (Verified 05/11/24 21:27) lisinopril Allergy (Verified 05/11/24 21:27) lovastatin Allergy (Verified 05/11/24:) metoprolol Allergy (Verified 05/11/24 21:27) naproxen [From Aleve] Allergy (Verified 05/11/24 21:27) nifedipine [From Procardia] Allergy (Verified 05/11/24 21:27) paroxetine Allergy (Verified 05/11/24 21:27) Penicillins Allergy (Verified 05/11/24 21:27) procaine [From Novocain] Allergy (Verified 05/11/24 21:27) sulfacetamide Allergy (Verified 05/11/24 21:27) tetracycline Allergy (Verified 05/11/24 21:27) theophylline Allergy (Verified 05/11/24 21:27) ticagrelor [From Brilinta] Allergy (Verified 05/11/24 21:27) azithromycin [From Zithromax] Adverse Reaction (Mild, Verified 05/11/24 21:27) Nausea not true allergy Hospital Summary - Hospital Course Hospital Course: Ms. Figueroa is a 74 year old female with a pmhx of CAD, COPD (3L at baseline), AFIB, HLD, HTN, MD (one month ago), CHF, DMII, cervical cancer, renal disease, and GERD admitted to [facility] 05/11/24 with sepsis secondary to pneumonia after experiencing shortness of breath and fever that started the night prior. Patient was febrile on arrival CXR consistent with pneumonia showing new moderate left base pneumonic infiltrate with tiny effusion. Lab findings remarkable for leukocytosis with WBC at 34, procalcitonin elevated at 4.400, BNP at 4130, CK at 481, Creat at 1.58 ( baseline around 1.2-1.3), and hgb at 10.9. Of note, initial trops 0.070. Respiratory panel and urinalysis negative. Patient was given azithromycin and solumedrol in ED. IP treatment with vanc/zosyn. CT findings concerning for malignancy with underlying pneumonia and severe sepsis. Plan for transfer to higher level of care to [facility]. Dr. Thompson accepting. Patient agreeable to plan and transfer. Discharge Note Latest Assessment & Plan (1) Sepsis Current Visit: Yes Status: Acute Assessment & Plan: -2/2 to pneumonia -WBC at 34 -LA at 4.40 -Zosyn started ( patient with multiple allergies)- recent hospitalization/copd/chronic steroid use plus vanc -duonebs/solumedrol -MRSA negative -Sputum and blood cultures pending -Supplemental oxygen for goal spo2 >88-92% -CT of chest today without contrast IMPRESSION: 1. Left upper solid pulmonary nodule with speculated margins and ground glass halo was noted in the apicoposterior segment of the left upper lung lobe, consider CT at 3 months, PET-CT, or tissue sampling regarding the Fleischner Society pulmonary nodule recommendations. Stable finding. 2. Large left lower pneumonic consolidation with underlying mild left pleural effusion could be infective, post-contrast CT chest is needed to rule out the underlying neoplastic lesion. A new finding. 3. Multiple small mediastinal lymph nodes. Stable 4. The scanned upper abdomen showed bulky adrenal glands with possible nodules, Larger on the left side, MRI abdomen with contrast is needed for correlation. Stable 5. Hypodense right thyroid lobe nodule measures 16x14 mm, Ultrasound correlation is needed. Stable. -plan to transfer to higher level of care [facility] accepting - Dr. Thompson (2) Pneumonia Current Visit: Yes Status: Acute Qualifiers: Assessment & Plan: -cxr with new moderate left base pneumonic infiltrate with tiny effusion -Pt meeting sepsis criteria with WBC at 34, LA at 4.40, resp >20, febrile on admission, known source of infection -Continue zosyn, nebs/steroids/Vanc Code(s): J18.9 - PNEUMONIA, UNSPECIFIED ORGANISM (3) Afib Current Visit: Yes Status: Acute Assessment & Plan: -Continue eliquis Code(s): I48.91 - UNSPECIFIED ATRIAL FIBRILLATION (4) COPD exacerbation Current Visit: Yes Status: Acute Assessment & Plan: -most likely secondary to pneumonia -Nebs/steroids -supplemental oxygen with goal >88-92% -see pneumonia plan Code(s): J44.1 - CHRONIC OBSTRUCTIVE PULMONARY DISEASE W (ACUTE) EXACERBATION (5) History of cervical cancer Current Visit: Yes Status: Acute Assessment & Plan: -noted, adds complexity Code(s): Z85.41 - PERSONAL HISTORY OF MALIGNANT NEOPLASM OF CERVIX UTERI (6) Acute respiratory failure with hypoxia Current Visit: Yes Status: Acute Assessment & Plan: -secondary to pneumonia/copd exacerbation -RT eval -Supplemental oxygen with goal spo2 > 88-92% - baseline 3L -Treat pneumonia with Zosyn -Nebs/steroids -ABG if increased lethargy/confusion Code(s): J96.01 - ACUTE RESPIRATORY FAILURE WITH HYPOXIA (7) Acute on chronic renal failure Current Visit: No Status: Acute Assessment & Plan: -baseline 1.2-1.3 -CHF - will avoid hydration -Avoid NSAIDS/ARB/ALIREZA -monitor renal/lytes daily -Hold Jardiance Code(s): N17.9 - ACUTE KIDNEY FAILURE, UNSPECIFIED; N18.9 - CHRONIC KIDNEY DISEASE, UNSPECIFIED (8) CAD (coronary artery disease) Current Visit: No Status: Acute Assessment & Plan: -recent MD one month ago -trops downtrending -continue home meds -BNP 4130 Code(s): I25.10 - ATHSCL HEART DISEASE OF [place] CORONARY ARTERY W/O ANG PCTRS (9) Type 2 diabetes mellitus Current Visit: Yes Status: Acute Assessment & Plan: -ADA diet -SSI/lantus -Hold Jardiance (10) Hypokalemia Current Visit: Yes Status: Acute Assessment & Plan: -labs reviewed, K+ at 3.3, will replenish -Monitor renal/lytes daily -tele Code(s): E87.6 - HYPOKALEMIA (11) CHF (congestive heart failure) Current Visit: No Status: Acute Assessment & Plan: -last echo 07/13/23 EF 45-50% IMPRESSION: 1. MILD CONCENTRIC LEFT VENTRICULAR HYPERTROPHY. 2. MILD LEFT VENTRICULAR SYSTOLIC DYSFUNCTION. 3. DIASTOLIC DYSFUNCTION. 4. MITRAL ANNULUS AND VALVULAR CALCIFICATION WITH EVIDENCE OF MILD MITRAL STENOSIS. 5. MILD TO MODERATE MITRAL REGURGITATION AND MILD TRICUSPID REGURGITATION. -Will obtain new Echo when able -BNP at 4130 VTE: Eliquis PPI: protonix Dispo: 2-3 days I spent 35 minutes [id number] with the patient on the day of discharge performing discharge exam, discussing hospital stay and discharge instructions with patient and caregivers, preparation of discharge records, prescriptions & referral forms and addressing any questions/concerns the patient had as documented above. - Vitals & Intake/Output Vital Signs: Vital Signs Temperature 97.5 F 05/12/24 11:41 Pulse Rate 87 05/12/24 11:41 Respiratory Rate 20 05/12/24 11:41 Blood Pressure 143/63 05/12/24 11:41 O2 Sat by Pulse Oximetry 94 L 05/12/24 11:41 Intake & Output: Intake & Output 05/10/24 05/11/24 05/12/24 05/13/24 11:59 11:59 11:59 11:59 Intake Total 780 Balance 780 Weight 94.5 kg - Lab Result Diagrams: 05/12/24 05:58 05/12/24 12:05 Lab Results-Last 24 Hrs: Lab Results-Last 24 Hours 05/11/24 05/11/24 05/11/24 Range/Units 14:47 15:05 15:15 WBC 34.0 H* (3.98-10.04) x10^3/uL RBC 4.05 (3.93-5.22) x10^6/uL Hgb 10.9 L (11.2-15.7) g/dL Hct 34.5 (34.1-44.9) % MCV 85.2 (79.4-94.8) fL MCH 26.9 (25.6-32.2) pg MCHC 31.6 L (32.2-35.5) g/dL RDW 16.3 H (11.7-14.4) % Plt Count 346 (182-369) x10^3/uL MPV 11.4 (9.4-12.3) fL Segmented Neutrophils 92 H (1.56-6.13) % Band Neutrophils 1 (0.0-2.0) % Lymphocytes (Manual) 6 L (24-44) % Monocytes (Manual) (0.0-12.0) % Metamyelocytes 1 % Platelet Estimate NORMAL (NORMAL) RBC Morphology ABNORMAL Macrocytosis 1+ Smear Path Review Pending Sodium 137 (135-145) mmol/L Potassium 3.9 (3.5-5.1) mmol/L Chloride 99 (98-107) mmol/L Carbon Dioxide 30 (22-30) mmol/L Anion Gap 12.3 (5-15) MEQ/L BUN 34 H (7-17) mg/dL Creatinine 1.58 H (0.52-1.04) mg/dL Estimated GFR 34.4 ML/MIN Glucose 170 H (74-106) mg/dL POC Glucometer (74 to 106) mg/dL Hemoglobin A1c (4.5-6.0) % Calcium 9.2 (8.4-10.2) mg/dL Magnesium (1.6-2.3) mg/dL Total Bilirubin 0.80 (0.2-1.3) mg/dL AST 38 H (14-36) U/L ALT 24 (0-35) U/L Alkaline Phosphatase 73 (38-126) U/L Creatine Kinase 481 H (30-135) U/L Troponin I (0.000-0.033) ng/mL NT-Pro-B Natriuret Pep (<300) pg/mL Serum Total Protein 7.7 (6.3-8.2) g/dL Albumin 4.0 (3.5-5.0) g/dL Procalcitonin (0.030-0.080) ng/mL Urine Color Yellow (Yellow) Urine Appearance Clear (Clear) Urine pH 5.5 (4.6-8.0) Ur Specific [place] 1.020 (1.005-1.030) Urine Protein 30 (Negative) Urine Glucose (UA) >=1000 A (Negative) mg/dL Urine Ketones Negative (Negative) Urine Blood Negative (Negative) Urine Nitrite Negative (Negative) Urine Bilirubin Negative (Negative) Urine Urobilinogen 0.2 (0.2) mg/dL Ur Leukocyte Esterase Negative (Negative) U Hyaline Cast (Auto) NONE SEEN (0-2) /LPF Urine Microscopic RBC 0-2 (0-5) /HPF Urine Microscopic WBC 0-2 (0-5) /HPF Ur Epithelial Cells Rare (None Seen) /HPF Urine Bacteria None Seen (None Seen) /HPF Urine Culture Reflexed NO (NO) Nasal Screen MRSA (PCR) (NEGATIVE) Influenza Type A Ag (NEGATIVE) Influenza Type B Ag (NEGATIVE) RSV (PCR) (NEGATIVE) SARS-CoV-2 (PCR) (NEGATIVE) 05/11/24 05/11/24 05/11/24 Range/Units 15:15 15:15 15:17 WBC (3.98-10.04) x10^3/uL RBC (3.93-5.22) x10^6/uL Hgb (11.2-15.7) g/dL Hct (34.1-44.9) % MCV (79.4-94.8) fL MCH (25.6-32.2) pg MCHC (32.2-35.5) g/dL RDW (11.7-14.4) % Plt Count (182-369) x10^3/uL MPV (9.4-12.3) fL Segmented Neutrophils (1.56-6.13) % Band Neutrophils (0.0-2.0) % Lymphocytes (Manual) (24-44) % Monocytes (Manual) (0.0-12.0) % Metamyelocytes % Platelet Estimate (NORMAL) RBC Morphology Macrocytosis Smear Path Review Sodium (135-145) mmol/L Potassium (3.5-5.1) mmol/L Chloride (98-107) mmol/L Carbon Dioxide (22-30) mmol/L Anion Gap (5-15) MEQ/L BUN (7-17) mg/dL Creatinine (0.52-1.04) mg/dL Estimated GFR ML/MIN Glucose (74-106) mg/dL POC Glucometer (74 to 106) mg/dL Hemoglobin A1c (4.5-6.0) % Calcium (8.4-10.2) mg/dL Magnesium (1.6-2.3) mg/dL Total Bilirubin (0.2-1.3) mg/dL AST (14-36) U/L ALT (0-35) U/L Alkaline Phosphatase (38-126) U/L Creatine Kinase (30-135) U/L Troponin I 0.070 H* (0.000-0.033) ng/mL NT-Pro-B Natriuret Pep 4130 (<300) pg/mL Serum Total Protein (6.3-8.2) g/dL Albumin (3.5-5.0) g/dL Procalcitonin 4.400 H* (0.030-0.080) ng/mL Urine Color (Yellow) Urine Appearance (Clear) Urine pH (4.6-8.0) Ur Specific [place] (1.005-1.030) Urine Protein (Negative) Urine Glucose (UA) (Negative) mg/dL Urine Ketones (Negative) Urine Blood (Negative) Urine Nitrite (Negative) Urine Bilirubin (Negative) Urine Urobilinogen (0.2) mg/dL Ur Leukocyte Esterase (Negative) U Hyaline Cast (Auto) (0-2) /LPF Urine Microscopic RBC (0-5) /HPF Urine Microscopic WBC (0-5) /HPF Ur Epithelial Cells (None Seen) /HPF Urine Bacteria (None Seen) /HPF Urine Culture Reflexed (NO) Nasal Screen MRSA (PCR) (NEGATIVE) Influenza Type A Ag NEGATIVE (NEGATIVE) Influenza Type B Ag NEGATIVE (NEGATIVE) RSV (PCR) NEGATIVE (NEGATIVE) SARS-CoV-2 (PCR) NEGATIVE (NEGATIVE) 05/11/24 05/11/24 05/11/24 Range/Units 18:10 22:28 23:25 WBC (3.98-10.04) x10^3/uL RBC (3.93-5.22) x10^6/uL Hgb (11.2-15.7) g/dL Hct (34.1-44.9) % MCV (79.4-94.8) fL MCH (25.6-32.2) pg MCHC (32.2-35.5) g/dL RDW (11.7-14.4) % Plt Count (182-369) x10^3/uL MPV (9.4-12.3) fL Segmented Neutrophils (1.56-6.13) % Band Neutrophils (0.0-2.0) % Lymphocytes (Manual) (24-44) % Monocytes (Manual) (0.0-12.0) % Metamyelocytes % Platelet Estimate (NORMAL) RBC Morphology Macrocytosis Smear Path Review Sodium (135-145) mmol/L Potassium (3.5-5.1) mmol/L Chloride (98-107) mmol/L Carbon Dioxide (22-30) mmol/L Anion Gap (5-15) MEQ/L BUN (7-17) mg/dL Creatinine (0.52-1.04) mg/dL Estimated GFR ML/MIN Glucose (74-106) mg/dL POC Glucometer (74 to 106) mg/dL Hemoglobin A1c (4.5-6.0) % Calcium (8.4-10.2) mg/dL Magnesium (1.6-2.3) mg/dL Total Bilirubin (0.2-1.3) mg/dL AST (14-36) U/L ALT (0-35) U/L Alkaline Phosphatase (38-126) U/L Creatine Kinase (30-135) U/L Troponin I 0.073 H* 0.057 H* (0.000-0.033) ng/mL NT-Pro-B Natriuret Pep (<300) pg/mL Serum Total Protein (6.3-8.2) g/dL Albumin (3.5-5.0) g/dL Procalcitonin (0.030-0.080) ng/mL Urine Color (Yellow) Urine Appearance (Clear) Urine pH (4.6-8.0) Ur Specific [place] (1.005-1.030) Urine Protein (Negative) Urine Glucose (UA) (Negative) mg/dL Urine Ketones (Negative) Urine Blood (Negative) Urine Nitrite (Negative) Urine Bilirubin (Negative) Urine Urobilinogen (0.2) mg/dL Ur Leukocyte Esterase (Negative) U Hyaline Cast (Auto) (0-2) /LPF Urine Microscopic RBC (0-5) /HPF Urine Microscopic WBC (0-5) /HPF Ur Epithelial Cells (None Seen) /HPF Urine Bacteria (None Seen) /HPF Urine Culture Reflexed (NO) Nasal Screen MRSA (PCR) NOT DETECTED (NEGATIVE) Influenza Type A Ag (NEGATIVE) Influenza Type B Ag (NEGATIVE) RSV (PCR) (NEGATIVE) SARS-CoV-2 (PCR) (NEGATIVE) 05/12/24 05/12/24 05/12/24 Range/Units 05:58 05:58 05:58 WBC 32.7 H* (3.98-10.04) x10^3/uL RBC 4.15 (3.93-5.22) x10^6/uL Hgb 11.1 L (11.2-15.7) g/dL Hct 36.1 (34.1-44.9) % MCV 87.0 (79.4-94.8) fL MCH 26.7 (25.6-32.2) pg MCHC 30.7 L (32.2-35.5) g/dL RDW 15.9 H (11.7-14.4) % Plt Count 305 (182-369) x10^3/uL MPV 11.4 (9.4-12.3) fL Segmented Neutrophils 84 H (1.56-6.13) % Band Neutrophils 12 H (0.0-2.0) % Lymphocytes (Manual) 3 L (24-44) % Monocytes (Manual) 1 (0.0-12.0) % Metamyelocytes % Platelet Estimate NORMAL (NORMAL) RBC Morphology NORMAL Macrocytosis Smear Path Review Sodium 137 (135-145) mmol/L Potassium 3.3 L (3.5-5.1) mmol/L Chloride 99 (98-107) mmol/L Carbon Dioxide 28 (22-30) mmol/L Anion Gap 13.9 (5-15) MEQ/L BUN 34 H (7-17) mg/dL Creatinine 1.44 H (0.52-1.04) mg/dL Estimated GFR 38.4 ML/MIN Glucose 261 H (74-106) mg/dL POC Glucometer (74 to 106) mg/dL Hemoglobin A1c (4.5-6.0) % Calcium 9.2 (8.4-10.2) mg/dL Magnesium 2.3 (1.6-2.3) mg/dL Total Bilirubin 0.80 (0.2-1.3) mg/dL AST 44 H (14-36) U/L ALT 27 (0-35) U/L Alkaline Phosphatase 65 (38-126) U/L Creatine Kinase (30-135) U/L Troponin I (0.000-0.033) ng/mL NT-Pro-B Natriuret Pep (<300) pg/mL Serum Total Protein 8.0 (6.3-8.2) g/dL Albumin 4.1 (3.5-5.0) g/dL Procalcitonin (0.030-0.080) ng/mL Urine Color (Yellow) Urine Appearance (Clear) Urine pH (4.6-8.0) Ur Specific [place] (1.005-1.030) Urine Protein (Negative) Urine Glucose (UA) (Negative) mg/dL Urine Ketones (Negative) Urine Blood (Negative) Urine Nitrite (Negative) Urine Bilirubin (Negative) Urine Urobilinogen (0.2) mg/dL Ur Leukocyte Esterase (Negative) U Hyaline Cast (Auto) (0-2) /LPF Urine Microscopic RBC (0-5) /HPF Urine Microscopic WBC (0-5) /HPF Ur Epithelial Cells (None Seen) /HPF Urine Bacteria (None Seen) /HPF Urine Culture Reflexed (NO) Nasal Screen MRSA (PCR) (NEGATIVE) Influenza Type A Ag (NEGATIVE) Influenza Type B Ag (NEGATIVE) RSV (PCR) (NEGATIVE) SARS-CoV-2 (PCR) (NEGATIVE) 05/12/24 05/12/24 05/12/24 Range/Units 06:00 07:23 11:36 WBC (3.98-10.04) x10^3/uL RBC (3.93-5.22) x10^6/uL Hgb (11.2-15.7) g/dL Hct (34.1-44.9) % MCV (79.4-94.8) fL MCH (25.6-32.2) pg MCHC (32.2-35.5) g/dL RDW (11.7-14.4) % Plt Count (182-369) x10^3/uL MPV (9.4-12.3) fL Segmented Neutrophils (1.56-6.13) % Band Neutrophils (0.0-2.0) % Lymphocytes (Manual) (24-44) % Monocytes (Manual) (0.0-12.0) % Metamyelocytes % Platelet Estimate (NORMAL) RBC Morphology Macrocytosis Smear Path Review Sodium (135-145) mmol/L Potassium (3.5-5.1) mmol/L Chloride (98-107) mmol/L Carbon Dioxide (22-30) mmol/L Anion Gap (5-15) MEQ/L BUN (7-17) mg/dL Creatinine (0.52-1.04) mg/dL Estimated GFR ML/MIN Glucose (74-106) mg/dL POC Glucometer 269 H 365 H (74 to 106) mg/dL Hemoglobin A1c 6.55 H (4.5-6.0) % Calcium (8.4-10.2) mg/dL Magnesium (1.6-2.3) mg/dL Total Bilirubin (0.2-1.3) mg/dL AST (14-36) U/L ALT (0-35) U/L Alkaline Phosphatase (38-126) U/L Creatine Kinase (30-135) U/L Troponin I (0.000-0.033) ng/mL NT-Pro-B Natriuret Pep (<300) pg/mL Serum Total Protein (6.3-8.2) g/dL Albumin (3.5-5.0) g/dL Procalcitonin (0.030-0.080) ng/mL Urine Color (Yellow) Urine Appearance (Clear) Urine pH (4.6-8.0) Ur Specific [place] (1.005-1.030) Urine Protein (Negative) Urine Glucose (UA) (Negative) mg/dL Urine Ketones (Negative) Urine Blood (Negative) Urine Nitrite (Negative) Urine Bilirubin (Negative) Urine Urobilinogen (0.2) mg/dL Ur Leukocyte Esterase (Negative) U Hyaline Cast (Auto) (0-2) /LPF Urine Microscopic RBC (0-5) /HPF Urine Microscopic WBC (0-5) /HPF Ur Epithelial Cells (None Seen) /HPF Urine Bacteria (None Seen) /HPF Urine Culture Reflexed (NO) Nasal Screen MRSA (PCR) (NEGATIVE) Influenza Type A Ag (NEGATIVE) Influenza Type B Ag (NEGATIVE) RSV (PCR) (NEGATIVE) SARS-CoV-2 (PCR) (NEGATIVE) 05/12/24 Range/Units 12:05 WBC (3.98-10.04) x10^3/uL RBC (3.93-5.22) x10^6/uL Hgb (11.2-15.7) g/dL Hct (34.1-44.9) % MCV (79.4-94.8) fL MCH (25.6-32.2) pg MCHC (32.2-35.5) g/dL RDW (11.7-14.4) % Plt Count (182-369) x10^3/uL MPV (9.4-12.3) fL Segmented Neutrophils (1.56-6.13) % Band Neutrophils (0.0-2.0) % Lymphocytes (Manual) (24-44) % Monocytes (Manual) (0.0-12.0) % Metamyelocytes % Platelet Estimate (NORMAL) RBC Morphology Macrocytosis Smear Path Review Sodium (135-145) mmol/L Potassium 3.3 L (3.5-5.1) mmol/L Chloride (98-107) mmol/L Carbon Dioxide (22-30) mmol/L Anion Gap (5-15) MEQ/L BUN (7-17) mg/dL Creatinine (0.52-1.04) mg/dL Estimated GFR ML/MIN Glucose (74-106) mg/dL POC Glucometer (74 to 106) mg/dL Hemoglobin A1c (4.5-6.0) % Calcium (8.4-10.2) mg/dL Magnesium (1.6-2.3) mg/dL Total Bilirubin (0.2-1.3) mg/dL AST (14-36) U/L ALT (0-35) U/L Alkaline Phosphatase (38-126) U/L Creatine Kinase (30-135) U/L Troponin I (0.000-0.033) ng/mL NT-Pro-B Natriuret Pep (<300) pg/mL Serum Total Protein (6.3-8.2) g/dL Albumin (3.5-5.0) g/dL Procalcitonin (0.030-0.080) ng/mL Urine Color (Yellow) Urine Appearance (Clear) Urine pH (4.6-8.0) Ur Specific [place] (1.005-1.030) Urine Protein (Negative) Urine Glucose (UA) (Negative) mg/dL Urine Ketones (Negative) Urine Blood (Negative) Urine Nitrite (Negative) Urine Bilirubin (Negative) Urine Urobilinogen (0.2) mg/dL Ur Leukocyte Esterase (Negative) U Hyaline Cast (Auto) (0-2) /LPF Urine Microscopic RBC (0-5) /HPF Urine Microscopic WBC (0-5) /HPF Ur Epithelial Cells (None Seen) /HPF Urine Bacteria (None Seen) /HPF Urine Culture Reflexed (NO) Nasal Screen MRSA (PCR) (NEGATIVE) Influenza Type A Ag (NEGATIVE) Influenza Type B Ag (NEGATIVE) RSV (PCR) (NEGATIVE) SARS-CoV-2 (PCR) (NEGATIVE) Micro Results-Entire Visit: Accuchecks Date 05/12/24 Date 05/12/24 Time 11:30 Time 07:38 - Radiology Exams Ordered Rad Exams-Entire Visit: Radiology Procedures Category Date Time Status CHEST 1 VIEW (PORTABLE) Stat Exams 05/11/24 14:47 Completed CHEST WITHOUT CONTRAST [CT] Stat Exams 05/12/24 08:00 Completed ECHO W/2D AND DOPPLER [US] Routine Exams 05/14/24 08:00 Ordered - Procedures and Test Procedures and Tests throughout Hospitalization: Therapy Orders & Screens 05/11/24 16:56 Respiratory Therapy Consult ONCE Comment: Reason For Exam: 05/11/24 22:15 RT Screen per Nursing Assess ONCE Comment: Protocol Order Physician Instructions: Greater than 3 points order RT Admission Screen Reason For Exam: Triggered on Admission Diagnosis: Acute hypoxic Respiratory Failure, PNE, Elevated troponin Diagnosis: Acute hypoxic Respiratory Failure, PNE, Elevated troponin Pneumonia: Yes Home O2: Yes Asthma: Yes CHF: Yes Home CPAP/BIPAP: No Home Nebs/MDI: Yes Total Points: 20 05/12/24 06:24 Oxygen Nasal Cannula 3 lpm Comment: Diagnosis: Acute hypoxic Respiratory Failure, PNE, Elevated troponin Discharge Exam General Appearance: no apparent distress Neurologic Exam: alert, oriented x 3, cooperative Eye Exam: PERRL Ears, Nose, Throat Exam: normal ENT inspection Neck Exam: normal inspection Respiratory Exam: diminished breath sounds, crackles/rales, wheezing Cardiovascular Exam: regular rate/rhythm, normal heart sounds Gastrointestinal/Abdomen Exam: soft, normal bowel sounds Pelvic Exam: deferred Rectal Exam: deferred Back Exam: normal inspection Extremity Exam: inflammation, swelling (ble +1 edema) Skin Exam: pale Wound Assessment: Skin/Wound Assessment Wound/Incision Assessment Start: 05/11/24 22:15 Text: Status: Active Freq: Q6H Protocol: Document 05/12/24 12:00 EK (Rec: 05/12/24 13:26 EK [id number]) Wound/Incision Assessment Left Lower Lateral Calf Wound Assessment Shift Assessment Wound Type Skin Tear Wound Stage Non Pressure Wound Dressing Status Dry & Intact Primary Dressing telfa pad Comment DRESSING C/D/I Final Diagnosis/Problem List - Final Discharge Diagnosis/Problem (1) Sepsis Current Visit: Yes Status: Acute (2) Pneumonia Current Visit: Yes Status: Acute Code(s): J18.9 - PNEUMONIA, UNSPECIFIED ORGANISM (3) Afib Current Visit: Yes Status: Chronic Code(s): I48.91 - UNSPECIFIED ATRIAL FIBRILLATION (4) COPD exacerbation Current Visit: Yes Status: Chronic Code(s): J44.1 - CHRONIC OBSTRUCTIVE PULMONARY DISEASE W (ACUTE) EXACERBATION (5) History of cervical cancer Current Visit: Yes Status: Chronic Code(s): Z85.41 - PERSONAL HISTORY OF MALIGNANT NEOPLASM OF CERVIX UTERI (6) Acute respiratory failure with hypoxia Current Visit: Yes Status: Acute Code(s): J96.01 - ACUTE RESPIRATORY FAILURE WITH HYPOXIA (7) Acute on chronic renal failure Current Visit: No Status: Chronic Code(s): N17.9 - ACUTE KIDNEY FAILURE, UNSPECIFIED; N18.9 - CHRONIC KIDNEY DISEASE, UNSPECIFIED (8) CAD (coronary artery disease) Current Visit: No Status: Chronic Code(s): I25.10 - ATHSCL HEART DISEASE OF [place] CORONARY ARTERY W/O ANG PCTRS (9) Type 2 diabetes mellitus Current Visit: Yes Status: Chronic (10) Hypokalemia Current Visit: Yes Status: Acute Code(s): E87.6 - HYPOKALEMIA (11) CHF (congestive heart failure) Current Visit: No Status: Chronic Code(s): I50.9 - HEART FAILURE, UNSPECIFIED - Discharge Disposition: DC TO OTHER HOSP Condition: Fair Prescriptions: New Piperacillin/Tazobactam 3.375G [Piperacillin/Tazobactam] 3.375 gm IV Q6HT Methylprednisolone Sod Suc 40M [solu-MEDROL] 40 mg IV Q6HT Acetaminophen 500 mg [Tylenol Extra Strength 500 mg] 500 mg PO HS tablet Continue Pregabalin 25 mg [Lyrica 25 MG] 25 mg PO BID Montelukast Sodium 10 mg [Singulair 10 MG] 10 mg PO DAILY Isosorbide Dinitrate 30 mg PO BREAKFAST Cyclosporine [Restasis Multidose] 1 drop OP BID Apixaban [Eliquis] 5 mg PO BID Amlodipine Besylate [Norvasc] 10 mg PO DAILY Amiodarone HCl 200 mg [Cordarone 200 MG] 200 mg PO DAILY Allopurinol 300 mg [Zyloprim 300 mg] 300 mg PO HS Fenofibric Acid 35 mg PO HS Potassium Chloride 10 meq PO DAILY Tramadol HCl 50 mg [Ultram 50 mg] 50 mg PO QDP PRN PRN Reason: Pain Tizanidine HCl 4 mg [Zanaflex 4 MG] 4 mg PO HS Aspirin EC 81 mg [Ecotrin 81 mg] 81 mg PO HS Fluticasone Propionate [Flonase Allergy Relief] 50 mcg INTRANASAL BID Metoprolol Succinate 50 mg [Toprol Xl 50 MG] 2 tab PO HS Melatonin 1 tab PO HS Albuterol/Ipratropium 3ml Neb* [DUONEB 0.5-3 MG/3 ml Neb] 3 ml IH Q6HPRN PRN 30 Days #120 amp PRN Reason: Shortness Of Breath/Wheezing Umeclidinium Brm/Vilanterol Tr [Anoro Ellipta 62.5-25 Mcg INH] 1 unit IH BID Fluticasone Propionate [Fluticasone Propionate Hfa] 12 gm IH BID Insulin Glargine [Lantus Insulin] 45 unit SQ BID Discontinued Empagliflozin [Jardiance] 10 mg PO DAILY Spironolactone 25 mg [Aldactone 25 MG] 25 mg PO DAILY Torsemide 20 mg [Demadex 20 mg] 60 mg PO BID Follow up with: KEVON HASTINGS MD [Primary Care Provider] -
[2024-05-12 15:20] VITALS: PULSE 85
[2024-05-12] MEDS: PHARMACY DOSING REQUIRED: VANCOMYCIN IV STA (15:53)
[2024-05-12] MEDS ORDERED: MELATONIN PO SCH (22:00)
[2024-05-12] MEDS ORDERED: NON-FORMULARY ITEM (Melatonin [Melatonin] 10 MG Tablet) PO SCH (22:00)
[2024-05-12] MEDS ORDERED: Toprol Xl 100 MG PO SCH (22:00)
[2024-05-12] MEDS ORDERED: ZYLOPRIM 300 MG PO SCH (22:00)
[2024-05-12] MEDS ORDERED: Toprol Xl 50 MG PO SCH (22:00)
[2024-05-12] MEDS ORDERED: ECOTRIN 81 MG PO SCH (22:00)
[2024-05-12] MEDS ORDERED: Zanaflex 4 MG PO SCH (22:00)
[2024-05-14] MEDS ORDERED: LEVOFLOXACIN 750MG/150ML D5W 750 MG/150 ML BAG IV SCH (10:00)
== END 2024-05-12 16:06 | DRG 871 ==
LOC: ED 14:37 → OBSVTOIN 21:16 → MED SURG 21:16
PROVIDERS: ADMIT Internal Medicine Critical Care Medicine; ATTEND Internal Medicine Critical Care Medicine
DX: A41.9 Sepsis, unspecified organism (principal); J18.9 Pneumonia, unspecified organism; J96.01 Acute respiratory failure with hypoxia; I13.0 Hypertensive heart and chronic kidney disease with heart failure and stage 1 through stage 4 chronic kidney disease, or unspecified chronic kidney disease; J44.1 Chronic obstructive pulmonary disease with (acute) exacerbation; N17.9 Acute kidney failure, unspecified; I25.10 Atherosclerotic heart disease of native coronary artery without angina pectoris; I48.91 Unspecified atrial fibrillation; Z59.82 Transportation insecurity; E78.5 Hyperlipidemia, unspecified; I25.2 Old myocardial infarction; E11.22 Type 2 diabetes mellitus with diabetic chronic kidney disease; I50.9 Heart failure, unspecified; N18.9 Chronic kidney disease, unspecified; D72.829 Elevated white blood cell count, unspecified; E87.6 Hypokalemia; Z99.81 Dependence on supplemental oxygen; Z85.41 Personal history of malignant neoplasm of cervix uteri; Z79.899 Other long term (current) drug therapy; Z79.01 Long term (current) use of anticoagulants
CPT/HCPCS: 0241U; 36000; 36415; 71045; 71250; 80053; 81001; 82550; 82947; 83036; 83735; 83880; 84132; 84145; 84484; 85025; 87040; 87077; 87186; 87641; 93005; 94640; 94762; 96365; 96374; 96375; 99284; 99291; J0456; J1817; J1956; J2919; J7609; Q3014; A9270-GY